=== PATIENT | male | born 1950 | race Two or more races ===

== ENCOUNTER 2019-09-02 17:19 | Inpatient (IN) | payer MEDICARE ==
[2019-09-02] MEDS ORDERED: SODIUM CHLORIDE 0.9% 500 ML 500 ML IV ONE ×2 (17:37→18:51)
[2019-09-02] MEDS ORDERED: SODIUM CHLORIDE 0.9% 1,000 ML IV ONE (17:37)
[2019-09-02] MEDS ORDERED: SODIUM CHLORIDE 0.9% 1,000 ML IV SCH (17:45)
[2019-09-02 17:48] LABS: Glucose,Whole Blood 382 mg/dL (75-99)
[2019-09-02 17:50] LABS: Basophils # (A) 0.1 k/uL (0-0.2); Basophils % (A) 0 %; Eosinophils # (A) 0.1 k/uL (0-0.7); Eosinophils % (A) 0 %; HCT 51.9 % (39.0-53.0); HGB 17.8 gm/dL (13.0-17.5); Lymphocytes # (A) 2.3 k/uL (1.0-4.8); Lymphocytes % (A) 14 %; MCH 31.3 pg (25.0-35.0); MCHC 34.3 g/dL (31.0-37.0); MCV 91.3 fL (80.0-100.0); Mean Platelet Volume 7.1; Monocytes # (A) 0.7 k/uL (0-1.0); Monocytes % (A) 4 %; Neutrophils # (A) 13.9 k/uL (1.3-7.7); Neutrophils % (A) 80 %; Platelet Count 290 k/uL (150-450); RBC 5.68 m/uL (4.30-5.90); RDW 13.3 % (11.5-15.5); WBC 17.3 k/uL (3.8-10.6)
[2019-09-02 18:01] LABS: ALT 22 U/L (4-49); AST 21 U/L (17-59); African American GFR (CKD) >90 (>60 ml/min/1.73 sqM); Albumin 4.8 g/dL (3.5-5.0); Alkaline Phosphatase 160 U/L (38-126); Anion Gap 27 mmol/L; Blood Urea Nitrogen 16 mg/dL (9-20); Chloride 97 mmol/L (98-107); Glucose 399 mg/dL (74-99); Non-African American GFR(CKD) >90 (>60 ml/min/1.73 sqM); Potassium 3.8 mmol/L (3.5-5.1); Sodium 133 mmol/L (137-145); Total Bilirubin 0.5 mg/dL (0.2-1.3); Total Protein 7.8 g/dL (6.3-8.2)
[2019-09-02 18:05] LABS: Appearance,Urine Clear (Clear); Bacteria,Urine Rare /hpf; Bilirubin,Urine Negative (Negative); Blood,Urine Negative (Negative); Color,Urine Light Yellow; Glucose,Urine (UA) 4+ (Negative); Hyaline Casts,Urine 29 /lpf (0-2); Leukocyte Esterase,Urine Negative (Negative); Mucus,Urine Rare /hpf; Nitrite,Urine Negative (Negative); Protein,Urine 1+ (Negative); Specific Gravity,Urine 1.025 (1.001-1.035); Urobilinogen,Urine <2.0 mg/dL (<2.0); WBC,Urine 1 /hpf (0-5)
[2019-09-02] MEDS ORDERED: hydrALAZINE HCL 20 MG/ML 1 ML VIAL IVP STA (18:09)
[2019-09-02 18:11] LABS: Ketones,Urine 4+ (Negative)
[2019-09-02 18:15] LABS: Carbon Dioxide 9 mmol/L (22-30)
[2019-09-02] MEDS ORDERED: INSULIN REGULAR BOLUS (FROM DRIP BAG) IV ONE (19:14)
[2019-09-02 19:35] LABS: Allen Test Performed? Yes
--- NOTE | 2019-09-02 19:36 | CT ---
EXAMINATION TYPE: CT abdomen pelvis w con DATE OF EXAM: 09/02/2019 COMPARISON: None HISTORY: Epigastric pain with nausea and vomiting. CT DLP: 1250.7 mGycm Automated exposure control for dose reduction was used. CONTRAST: Performed with IV Contrast, patient injected with 100 mL of Isovue 300. Lung bases are clear. There is no pleural effusion. There is low attenuation in the liver suggestive of some fatty infiltration. There is bilobed 3.5 cm cyst in the left lobe of the liver. There is 1.5 cm cyst anterior right lobe of the liver. There are some densely calcified gallstones in the dependen t gallbladder. Stomach appears normal. There is no pancreatic mass. Spleen appears normal. There is no adrenal mass. Kidneys show satisfactory contrast opacification. There is no hydronephrosi s. There is 1 cm cortical cyst lateral right kidney. Ureters are not dilated. There is no retroperito traci adenopathy. Bladder distends smoothly. There is some prostate calcification. There is no inguina l hernia. There is no free fluid in the pelvis. There is implanted device over the anterior left lowe r quadrant. Appendix is not seen. There is no sign of thickened appendix. There is no mesenteric edema. There is no ascites or free air. There is no sign of a bowel obstruction. There is mild atheromatous change of the abdominal aorta. Lumbar vertebra have normal alignment. There is degenerative disc space narrowing at L5-S1 with vacuu m disc. Abdominal aorta is atheromatous. Posterior elements are intact. Bony pelvis is intact. IMPRESSION: There is some fatty infiltration of the liver. Cholelithiasis. No dilated ducts. No acute abnormality of the abdomen pelvis.
[2019-09-02 19:37] LABS: ABG Base Excess -16.5 mmol/L; ABG Oxygen Saturation 98.2 % (94-97); ABG PCO2 22 mmHg (35-45); ABG PH 7.25 (7.35-7.45); ABG PO2 119 mmHg (83-108)
[2019-09-02 19:38] LABS: ABG HCO3 9 mmol/L (21-25)
[2019-09-02] MEDS ORDERED: LORazepam 2 MG/ML INJ IV STA (19:53)
--- NOTE | 2019-09-02 19:55 | ED ---
Nausea/Vomiting/Diarrhea HPI - General Source: EMS Mode of arrival: EMS Limitations: no limitations <Jennifer Michael - Last Filed: 09/02/19 20:22> <Kathrin Heller - Last Filed: 09/09/19 04:40> - General Chief complaint: Nausea/Vomiting/Diarrhea Stated complaint: Vomiting Time Seen by Provider: 09/02/19 17:34 - History of Present Illness Initial comments: 68-year-old male presents today for chief complaint of nausea vomiting unable to eat or drink are 4 days. Patient states that he has had nausea vomiting and been unable to drink the past 4 days. Patient states he has had this nonspecific epigastric abdominal pain denies any radiation denies any severe pain. Patient denies any chest pain shortness of breath or leg swelling. Patient denies any headache dizziness, or new back pain. Patient states he has beem unable to take his BP medications. Denies history of heavy drinking, PUD, melena, hematochezia, NSAID abuse. Patient denies additional complaints. Upon arrival patient appears well there is no signs of acute distress. (Jennifer Michael) - Related Data Home Medications Medication Instructions Recorded Confirmed Atorvastatin Calcium [Lipitor] 20 mg PO DAILY 09/02/19 09/02/19 Gabapentin [Neurontin] 100 mg PO TID 09/02/19 09/02/19 Hydromorphone (Pain Pump) 0.01 mg SQ-PUMP CONTINUOUS 09/02/19 09/02/19 amLODIPine [Norvasc] 2.5 mg PO DAILY 09/02/19 09/02/19 Previous Rx's Medication Instructions Recorded Aspirin 81 mg PO DAILY #30 chewable 09/05/19 Insulin NPH/Reg Insulin 70/30 18 unit SQ BID #4 vial 09/05/19 [humuLIN 70/30 VIAL] Allergies Allergy/AdvReac Type Severity Reaction Status Date / Time morphine Allergy Rash/Hives Verified 09/02/19 19:21 Review of Systems ROS Other: All systems not noted in ROS Statement are negative. <Jennifer Michael - Last Filed: 09/02/19 20:22> ROS Other: All systems not noted in ROS Statement are negative. <Kathrin Heller - Last Filed: 09/09/19 04:40> ROS Statement: Those systems with pertinent positive or pertinent negative responses have been documented in the HPI. Past Medical History Past Medical History: Hypertension History of Any Multi-Drug Resistant Organisms: None Reported Additional Past Surgical History / Comment(s): Pain pump Past Psychological History: No Psychological Hx Reported Smoking Status: Current every day smoker Past Alcohol Use History: None Reported Past Drug Use History: None Reported <Jennifer Michael - Last Filed: 09/02/19 20:22> General Exam Limitations: no limitations <Jennifer Michael - Last Filed: 09/02/19 20:22> - General Exam Comments Initial Comments: General: The patient is awake and alert, in no distress Eye: Pupils are equal, round and reactive to light, extra-ocular movements are intact. No nystagmus. There is normal conjunctiva bilaterally. No signs of icterus. Ears, nose, mouth and throat: There are moist mucous membranes and no oral lesions. Neck: The neck is supple, there is no tenderness or JVD. Cardiovascular: There is a regular rate and rhythm. No murmur, rub or gallop is appreciated. Respiratory: Lungs are clear to auscultation, respirations are non-labored, breath sounds are equal. No wheezes, stridor, rales, or rhonchi. Gastrointestinal: Soft, non-distended, mild tenderness to the epigastric region of the abdomen without masses or organomegaly noted. There is no rebound or guarding present. (-) [place] sign. Musculoskeletal: Normal ROM, no tenderness. Strength 5/5. Sensation intact. Pulses equal bilaterally 2+. Neurological: A&O x 3. CN II-XII intact grossly, There are no obvious motor or sensory deficits. Coordination appears grossly intact. Speech is normal. Skin: Skin is warm and dry and no rashes or lesions are noted. Psychiatric: Cooperative, appropriate mood & affect, normal judgment. (Jennifer Michael) Course Vital Signs 09/02/19 09/02/19 09/02/19 17:23 17:30 18:00 Temperature 98.7 F Pulse Rate 102 H 104 H 106 H Pulse Rate [ Bilateral] Respiratory 17 17 17 Rate Blood Pressure 196/130 196/130 201/115 Blood Pressure [Left Arm] O2 Sat by Pulse 96 96 95 Oximetry 09/02/19 09/02/19 09/02/19 18:30 18:45 19:20 Temperature Pulse Rate 110 H 102 H 104 H Pulse Rate [ Bilateral] Respiratory 17 18 18 Rate Blood Pressure 168/104 171/83 182/89 Blood Pressure [Left Arm] O2 Sat by Pulse 96 98 96 Oximetry 09/02/19 09/02/19 09/02/19 20:04 20:14 20:45 Temperature 97.8 F 97.9 F Pulse Rate 111 H 114 H Pulse Rate [ 97 Bilateral] Respiratory 16 20 16 Rate Blood Pressure 171/90 137/86 Blood Pressure 166/73 [Left Arm] O2 Sat by Pulse 98 96 98 Oximetry Medical Decision Making - Lab Data Result diagrams: 09/02/19 17:30 09/02/19 17:30 <Jennifer Michael - Last Filed: 09/02/19 20:22> - Lab Data Result diagrams: 09/05/19 08:00 09/05/19 08:00 <Kathrin Heller - Last Filed: 09/09/19 04:40> - Medical Decision Making 68yo male presenting today for cc of nausea, vomiting. Glucose elevated POC. Concern DKA. No history. EKG obtained QT prolongation-antiemetic held due to fear of prolonging QT further. Pt given ativan. Patient hydrated. Ketones, Acetone +. Low bicarb on ABG however greater than 7. Patient initiated on Insulin drip with DKA protocol and 200ml/hr fluids. Patient has no history CHF, no SOB. No extremity swelling. Patient will be admitted on telemetry. Repeat studies ordered. Patient is agreeable to admission. Dr. Heller who reviewed laboratory studies/EKG is agreeable to care plan. CT obtained secondary to epigastric pain--no acute abnormalities. (Jennifer Michael) I was available for consultation in the emergency department. The history and physical exam were done by the midlevel provider. I was consulted for this patients care. I reviewed the case with the midlevel provider and based on their presentation of the patient, I agree with the assessment, medical decision making and plan of care as documented. Chart was dictated using [employer] dictation software. Attempts were made to correct any dictation errors however some typographical errors may persist. (Kathrin Heller) - Lab Data Lab Results 09/02/19 09/02/19 09/02/19 Range/Units 17:30 17:30 17:30 WBC 17.3 H (3.8-10.6) k/uL RBC 5.68 (4.30-5.90) m/uL Hgb 17.8 H (13.0-17.5) gm/dL Hct 51.9 (39.0-53.0) % MCV 91.3 (80.0-100.0) fL MCH 31.3 (25.0-35.0) pg MCHC 34.3 (31.0-37.0) g/dL RDW 13.3 (11.5-15.5) % Plt Count 290 (150-450) k/uL Neutrophils % 80 % Lymphocytes % 14 % Monocytes % 4 % Eosinophils % 0 % Basophils % 0 % Neutrophils # 13.9 H (1.3-7.7) k/uL Lymphocytes # 2.3 (1.0-4.8) k/uL Monocytes # 0.7 (0-1.0) k/uL Eosinophils # 0.1 (0-0.7) k/uL Basophils # 0.1 (0-0.2) k/uL Sample Site ABG pH (7.35-7.45) ABG pCO2 (35-45) mmHg ABG pO2 (83-108) mmHg ABG HCO3 (21-25) mmol/L ABG Total CO2 ABG O2 Saturation (94-97) % ABG Base Excess mmol/L Giuliano Test FiO2 % Sodium 133 L (137-145) mmol/L Potassium 3.8 (3.5-5.1) mmol/L Chloride 97 L (98-107) mmol/L Carbon Dioxide 9 L* (22-30) mmol/L Anion Gap 27 mmol/L BUN 16 (9-20) mg/dL Creatinine 0.81 (0.66-1.25) mg/dL Est GFR (CKD-EPI)AfAm >90 (>60 ml/min/1.73 sqM) Est GFR (CKD-EPI)NonAf >90 (>60 ml/min/1.73 sqM) Glucose 399 H (74-99) mg/dL POC Glucose (mg/dL) (75-99) mg/dL POC Glu Watch Repair Technician ID Lactic Ac Sepsis Rflx Plasma Lactic Acid Thomas 2.4 H* (0.7-2.0) mmol/L Calcium 9.0 (8.4-10.2) mg/dL Total Bilirubin 0.5 (0.2-1.3) mg/dL AST 21 (17-59) U/L ALT 22 (4-49) U/L Alkaline Phosphatase 160 H (38-126) U/L Troponin I (0.000-0.034) ng/mL Total Protein 7.8 (6.3-8.2) g/dL Albumin 4.8 (3.5-5.0) g/dL Lipase 213 (23-300) U/L Urine Color Urine Appearance (Clear) Urine pH (5.0-8.0) Ur Specific [place] (1.001-1.035) Urine Protein (Negative) Urine Glucose (UA) (Negative) Urine Ketones (Negative) Urine Blood (Negative) Urine Nitrite (Negative) Urine Bilirubin (Negative) Urine Urobilinogen (<2.0) mg/dL Ur Leukocyte Esterase (Negative) Urine WBC (0-5) /hpf Urine Bacteria (None) /hpf Hyaline Casts (0-2) /lpf Urine Mucus (None) /hpf Acetone, Qual (Negative) 09/02/19 09/02/19 09/02/19 Range/Units 17:30 17:30 17:30 WBC (3.8-10.6) k/uL RBC (4.30-5.90) m/uL Hgb (13.0-17.5) gm/dL Hct (39.0-53.0) % MCV (80.0-100.0) fL MCH (25.0-35.0) pg MCHC (31.0-37.0) g/dL RDW (11.5-15.5) % Plt Count (150-450) k/uL Neutrophils % % Lymphocytes % % Monocytes % % Eosinophils % % Basophils % % Neutrophils # (1.3-7.7) k/uL Lymphocytes # (1.0-4.8) k/uL Monocytes # (0-1.0) k/uL Eosinophils # (0-0.7) k/uL Basophils # (0-0.2) k/uL Sample Site ABG pH (7.35-7.45) ABG pCO2 (35-45) mmHg ABG pO2 (83-108) mmHg ABG HCO3 (21-25) mmol/L ABG Total CO2 ABG O2 Saturation (94-97) % ABG Base Excess mmol/L Giuliano Test FiO2 % Sodium (137-145) mmol/L Potassium (3.5-5.1) mmol/L Chloride (98-107) mmol/L Carbon Dioxide (22-30) mmol/L Anion Gap mmol/L BUN (9-20) mg/dL Creatinine (0.66-1.25) mg/dL Est GFR (CKD-EPI)AfAm (>60 ml/min/1.73 sqM) Est GFR (CKD-EPI)NonAf (>60 ml/min/1.73 sqM) Glucose (74-99) mg/dL POC Glucose (mg/dL) (75-99) mg/dL POC Glu Watch Repair Technician ID Lactic Ac Sepsis Rflx Plasma Lactic Acid Thomas (0.7-2.0) mmol/L Calcium (8.4-10.2) mg/dL Total Bilirubin (0.2-1.3) mg/dL AST (17-59) U/L ALT (4-49) U/L Alkaline Phosphatase (38-126) U/L Troponin I <0.012 (0.000-0.034) ng/mL Total Protein (6.3-8.2) g/dL Albumin (3.5-5.0) g/dL Lipase (23-300) U/L Urine Color Light Yellow Urine Appearance Clear (Clear) Urine pH 5.0 (5.0-8.0) Ur Specific [place] 1.025 (1.001-1.035) Urine Protein 1+ H (Negative) Urine Glucose (UA) 4+ H (Negative) Urine Ketones 4+ H (Negative) Urine Blood Negative (Negative) Urine Nitrite Negative (Negative) Urine Bilirubin Negative (Negative) Urine Urobilinogen <2.0 (<2.0) mg/dL Ur Leukocyte Esterase Negative (Negative) Urine WBC 1 (0-5) /hpf Urine Bacteria Rare H (None) /hpf Hyaline Casts 29 H (0-2) /lpf Urine Mucus Rare H (None) /hpf Acetone, Qual Positive (Negative) 09/02/19 09/02/19 09/02/19 Range/Units 17:46 18:16 19:27 WBC (3.8-10.6) k/uL RBC (4.30-5.90) m/uL Hgb (13.0-17.5) gm/dL Hct (39.0-53.0) % MCV (80.0-100.0) fL MCH (25.0-35.0) pg MCHC (31.0-37.0) g/dL RDW (11.5-15.5) % Plt Count (150-450) k/uL Neutrophils % % Lymphocytes % % Monocytes % % Eosinophils % % Basophils % % Neutrophils # (1.3-7.7) k/uL Lymphocytes # (1.0-4.8) k/uL Monocytes # (0-1.0) k/uL Eosinophils # (0-0.7) k/uL Basophils # (0-0.2) k/uL Sample Site lbrach ABG pH 7.25 L (7.35-7.45) ABG pCO2 22 L (35-45) mmHg ABG pO2 119 H (83-108) mmHg ABG HCO3 9 L* (21-25) mmol/L ABG Total CO2 Not Reportable ABG O2 Saturation 98.2 H (94-97) % ABG Base Excess -16.5 mmol/L Giuliano Test Yes FiO2 21 % Sodium (137-145) mmol/L Potassium (3.5-5.1) mmol/L Chloride (98-107) mmol/L Carbon Dioxide (22-30) mmol/L Anion Gap mmol/L BUN (9-20) mg/dL Creatinine (0.66-1.25) mg/dL Est GFR (CKD-EPI)AfAm (>60 ml/min/1.73 sqM) Est GFR (CKD-EPI)NonAf (>60 ml/min/1.73 sqM) Glucose (74-99) mg/dL POC Glucose (mg/dL) 382 H (75-99) mg/dL POC Glu Watch Repair Technician ID Dariela Hoffmann Lactic Ac Sepsis Rflx Y Plasma Lactic Acid Thomas (0.7-2.0) mmol/L Calcium (8.4-10.2) mg/dL Total Bilirubin (0.2-1.3) mg/dL AST (17-59) U/L ALT (4-49) U/L Alkaline Phosphatase (38-126) U/L Troponin I (0.000-0.034) ng/mL Total Protein (6.3-8.2) g/dL Albumin (3.5-5.0) g/dL Lipase (23-300) U/L Urine Color Urine Appearance (Clear) Urine pH (5.0-8.0) Ur Specific [place] (1.001-1.035) Urine Protein (Negative) Urine Glucose (UA) (Negative) Urine Ketones (Negative) Urine Blood (Negative) Urine Nitrite (Negative) Urine Bilirubin (Negative) Urine Urobilinogen (<2.0) mg/dL Ur Leukocyte Esterase (Negative) Urine WBC (0-5) /hpf Urine Bacteria (None) /hpf Hyaline Casts (0-2) /lpf Urine Mucus (None) /hpf Acetone, Qual (Negative) - EKG Data EKG Comments: Ventricular rate 107 bpm, CT interval 156 ms, QRS ration 92 ms, QT/QTC 42/536 mg seconds. This is sinus tachycardia there is noted to be a prolonged QT. (Jennifer Michael) Critical Care Time Critical Care Time: Yes <Kathrin Heller - Last Filed: 09/09/19 04:40> Critical Care Time: 32 minutes (Kathrin Heller) Disposition Is patient prescribed a controlled substance at d/c from ED?: No Time of Disposition: 19:54 Decision to Admit Reason: Admit from EC Decision Date: 09/02/19 Decision Time: 19:55 <Jennifer Michael - Last Filed: 09/02/19 20:22> <Kathrin Heller - Last Filed: 09/09/19 04:40> Clinical Impression: DKA (diabetic ketoacidoses), Diabetes mellitus, new onset, Dehydration, Low bicarbonate, Nausea & vomiting Disposition: ADMITTED IP TO THIS [facility] Condition: Stable
--- NOTE | 2019-09-02 19:55 | XR ---
EXAMINATION TYPE: XR chest 2V DATE OF EXAM: 09/02/2019 COMPARISON: NONE HISTORY: Nausea and vomiting TECHNIQUE: 2 views FINDINGS: Heart and mediastinum are normal. Lungs are clear. Diaphragm is normal. Bony thorax appears normal. IMPRESSION: Normal chest.
[2019-09-02 19:56] LABS: Glucose,Whole Blood 311 mg/dL (75-99)
[2019-09-02] MEDS: INSULIN REGULAR 100 UNIT in SODIUM CHLORIDE 0.9% 100 ML IV SCH (19:58)
[2019-09-02 20:20] LABS: Glucose,Whole Blood 297 mg/dL (75-99)
[2019-09-02 20:53] LABS: Glucose,Whole Blood 298 mg/dL (75-99)
[2019-09-02 21:16] LABS: African American GFR (CKD) >90 (>60 ml/min/1.73 sqM); Anion Gap 22 mmol/L; Blood Urea Nitrogen 14 mg/dL (9-20); Chloride 106 mmol/L (98-107); Glucose 280 mg/dL (74-99); Non-African American GFR(CKD) >90 (>60 ml/min/1.73 sqM); Phosphorus 3.1 mg/dL (2.5-4.5); Potassium 3.6 mmol/L (3.5-5.1); Sodium 136 mmol/L (137-145)
[2019-09-02 21:19] LABS: Carbon Dioxide 8 mmol/L (22-30)
[2019-09-02 21:33] LABS: Glucose,Whole Blood 266 mg/dL (75-99)
[2019-09-02] MEDS: D5-0.45% NACL WITH KCL 20MEQ/L 1,000 ML IV SCH (21:44)
[2019-09-02 23:12] LABS: Glucose,Whole Blood 171 mg/dL (75-99)
[2019-09-03 00:05] LABS: Glucose,Whole Blood 144 mg/dL (75-99)
[2019-09-03 01:00] LABS: Glucose,Whole Blood 158 mg/dL (75-99)
[2019-09-03] MEDS ORDERED: Potassium Replacement Protocol 1 EACH MISC MISCELLANE PRN (01:24)
[2019-09-03] MEDS ORDERED: Magnesium Replacement Protocol 1 EACH MISC MISCELLANE PRN (01:24)
--- NOTE | 2019-09-03 01:40 | P.HPIM ---
History of Present Illness H&P Date: 09/02/19 Chief Complaint: nausea and vomiting 68 year old male with hypertension controlled with meds he comes in with 1 week histoyr of of worsening nausea and vomiting , he has not been able to eat or drink or even take his meds over the past 4 days. his symptoms started as a milder form about 3 weeks ago . he denies any ferver chills, or sick contact,denies any chest pain or trouble breathing, denies any coughing. or changes in his urine,. he reports abd discomfort but not severe. diffuse abd vague pain 4/10 in severity . he denies any gi bleeding, reports constipation in the ED he was found to be in DKA< he denies any history of diabetes, but does recall that once he was told that he has very high blood sugar during his knee surgery CT of the abd showed cholelithiasis Review of Systems Pertinent positives as noted in HPI. All other systems were reviewed and are negative Past Medical History Past Medical History: Hypertension History of Any Multi-Drug Resistant Organisms: None Reported Additional Past Surgical History / Comment(s): Pain pump Past Anesthesia/Blood Transfusion Reactions: No Reported Reaction Past Psychological History: No Psychological Hx Reported Smoking Status: Current every day smoker Past Alcohol Use History: None Reported Past Drug Use History: None Reported - Past Family History family Family Medical History: No Reported History Medications and Allergies Home Medications Medication Instructions Recorded Confirmed Type Atorvastatin Calcium [Lipitor] 20 mg PO DAILY 09/02/19 09/02/19 History Gabapentin [Neurontin] 100 mg PO TID 09/02/19 09/02/19 History Hydromorphone (Pain Pump) 0.01 mg SQ-PUMP CONTINUOUS 09/02/19 09/02/19 History amLODIPine [Norvasc] 2.5 mg PO DAILY 09/02/19 09/02/19 History Allergies Allergy/AdvReac Type Severity Reaction Status Date / Time morphine Allergy Rash/Hives Verified 09/02/19 19:21 Physical Exam Vitals: Vital Signs Temp Pulse Pulse Resp BP BP Pulse Ox 09/03/19 00:00 97 18 168/75 97 09/02/19 20:45 97.9 F 114 H 16 137/86 98 09/02/19 20:14 97.8 F 97 20 166/73 96 09/02/19 20:04 111 H 16 171/90 98 09/02/19 19:20 104 H 18 182/89 96 09/02/19 18:45 102 H 18 171/83 98 09/02/19 18:30 110 H 17 168/104 96 09/02/19 18:00 106 H 17 201/115 95 09/02/19 17:30 104 H 17 196/130 96 09/02/19 17:23 98.7 F 102 H 17 196/130 96 Intake and Output 09/02/19 09/02/19 09/03/19 14:59 22:59 06:59 Intake Total 440 39.793 Output Total 1100 Balance -660 39.793 Intake: Intake, IV Titration 39.793 Amount Insulin Regular 100 unit 39.793 In Sodium Chloride 0.9% 100 ml @ 0.1 UNITS/KG/HR 9.437 mls/hr IV .[id number] [facility] Rx#:[id number] Oral 440 Output: Urine 1100 Other: Weight 93.44 kg Constitutional: No acute distress, conversant, pleasant Eyes: Anicteric sclerae, moist conjunctiva, no lid-lag Pupils equal round reactive to light ENMT: NC/AT Oropharynx clear, no erythema, exudates Neck: Supple, FROM, no masses, or JVD No carotid bruits No thyromegaly Lungs: Clear to auscultation Clear to percussion Normal respiratory effort, no accessory muscle use Cardiovascular: Heart regular in rate and rhythm, No murmurs, gallops, or rubs No peripheral edema Abdominal: Soft Nontender, no guarding, rebound or rigidity Abdomen moving with respiration Normoactive bowel sounds No hepatomegaly, No splenomegaly No palpable mass No abdominal wall hernia noted Skin: Normal temperature, tone, texture, turgor No induration No subcutaneous nodules No rash, lesions No ulcers Extremities: No digital cyanosis No clubbing Pedal pulses intact and symmetrical Radial pulses intact and symmetrical No calf tenderness Psychiatric: Alert and oriented to person, place and time Appropriate affect fair judgement Neuro Muscles Strength 5/5 in all 4 extremities Sensation to light touch grossly present throughout Cranial nerves II-XII grossly intact No focal sensory deficits Lymphatics: no palpable cervical or supraclavicular , or inguinal lymph nodes Results CBC & Chem 7: 09/02/19 17:30 09/02/19 20:40 Labs: Abnormal Lab Results - Last 24 Hours (Table) 09/02/19 09/02/19 09/02/19 Range/Units 17:30 17:30 17:30 WBC 17.3 H (3.8-10.6) k/uL Hgb 17.8 H (13.0-17.5) gm/dL Neutrophils # 13.9 H (1.3-7.7) k/uL ABG pH (7.35-7.45) ABG pCO2 (35-45) mmHg ABG pO2 (83-108) mmHg ABG HCO3 (21-25) mmol/L ABG O2 Saturation (94-97) % Sodium 133 L (137-145) mmol/L Chloride 97 L (98-107) mmol/L Carbon Dioxide 9 L* (22-30) mmol/L Glucose 399 H (74-99) mg/dL POC Glucose (mg/dL) (75-99) mg/dL Plasma Lactic Acid Thomas 2.4 H* (0.7-2.0) mmol/L Alkaline Phosphatase 160 H (38-126) U/L Urine Protein (Negative) Urine Glucose (UA) (Negative) Urine Ketones (Negative) Urine Bacteria (None) /hpf Hyaline Casts (0-2) /lpf Urine Mucus (None) /hpf 09/02/19 09/02/19 09/02/19 Range/Units 17:30 17:46 19:27 WBC (3.8-10.6) k/uL Hgb (13.0-17.5) gm/dL Neutrophils # (1.3-7.7) k/uL ABG pH 7.25 L (7.35-7.45) ABG pCO2 22 L (35-45) mmHg ABG pO2 119 H (83-108) mmHg ABG HCO3 9 L* (21-25) mmol/L ABG O2 Saturation 98.2 H (94-97) % Sodium (137-145) mmol/L Chloride (98-107) mmol/L Carbon Dioxide (22-30) mmol/L Glucose (74-99) mg/dL POC Glucose (mg/dL) 382 H (75-99) mg/dL Plasma Lactic Acid Thomas (0.7-2.0) mmol/L Alkaline Phosphatase (38-126) U/L Urine Protein 1+ H (Negative) Urine Glucose (UA) 4+ H (Negative) Urine Ketones 4+ H (Negative) Urine Bacteria Rare H (None) /hpf Hyaline Casts 29 H (0-2) /lpf Urine Mucus Rare H (None) /hpf 09/02/19 09/02/19 09/02/19 Range/Units 19:49 20:18 20:40 WBC (3.8-10.6) k/uL Hgb (13.0-17.5) gm/dL Neutrophils # (1.3-7.7) k/uL ABG pH (7.35-7.45) ABG pCO2 (35-45) mmHg ABG pO2 (83-108) mmHg ABG HCO3 (21-25) mmol/L ABG O2 Saturation (94-97) % Sodium 136 L (137-145) mmol/L Chloride (98-107) mmol/L Carbon Dioxide 8 L* (22-30) mmol/L Glucose 280 H (74-99) mg/dL POC Glucose (mg/dL) 311 H 297 H (75-99) mg/dL Plasma Lactic Acid Thomas (0.7-2.0) mmol/L Alkaline Phosphatase (38-126) U/L Urine Protein (Negative) Urine Glucose (UA) (Negative) Urine Ketones (Negative) Urine Bacteria (None) /hpf Hyaline Casts (0-2) /lpf Urine Mucus (None) /hpf 09/02/19 09/02/19 09/02/19 Range/Units 20:41 21:31 21:52 WBC (3.8-10.6) k/uL Hgb (13.0-17.5) gm/dL Neutrophils # (1.3-7.7) k/uL ABG pH (7.35-7.45) ABG pCO2 (35-45) mmHg ABG pO2 (83-108) mmHg ABG HCO3 (21-25) mmol/L ABG O2 Saturation (94-97) % Sodium (137-145) mmol/L Chloride (98-107) mmol/L Carbon Dioxide (22-30) mmol/L Glucose (74-99) mg/dL POC Glucose (mg/dL) 298 H 266 H (75-99) mg/dL Plasma Lactic Acid Thomas 2.1 H* (0.7-2.0) mmol/L Alkaline Phosphatase (38-126) U/L Urine Protein (Negative) Urine Glucose (UA) (Negative) Urine Ketones (Negative) Urine Bacteria (None) /hpf Hyaline Casts (0-2) /lpf Urine Mucus (None) /hpf 09/02/19 09/03/19 09/03/19 Range/Units 22:59 00:04 00:59 WBC (3.8-10.6) k/uL Hgb (13.0-17.5) gm/dL Neutrophils # (1.3-7.7) k/uL ABG pH (7.35-7.45) ABG pCO2 (35-45) mmHg ABG pO2 (83-108) mmHg ABG HCO3 (21-25) mmol/L ABG O2 Saturation (94-97) % Sodium (137-145) mmol/L Chloride (98-107) mmol/L Carbon Dioxide (22-30) mmol/L Glucose (74-99) mg/dL POC Glucose (mg/dL) 171 H 144 H 158 H (75-99) mg/dL Plasma Lactic Acid Thomas (0.7-2.0) mmol/L Alkaline Phosphatase (38-126) U/L Urine Protein (Negative) Urine Glucose (UA) (Negative) Urine Ketones (Negative) Urine Bacteria (None) /hpf Hyaline Casts (0-2) /lpf Urine Mucus (None) /hpf Thrombosis Risk Factor Assmnt - Choose All That Apply Any of the Below Risk Factors Present?: No Other Risk Factors: Yes Each Risk Factor Represents 2 Points: Age 61-74 years Thrombosis Risk Factor Assessment Total Risk Factor Score: 2 Thrombosis Risk Factor Assessment Level: Low Risk Assessment and Plan Assessment: 68 year old male with hypertension controlled with meds found to have DKA anticipated length of stay >2 midnights DKA lactic acidosis aggressive IVF hydraiton with normal saline transition to d5 0.45 NS per protocol insulin drip, transition to sc insulin when gap closed and acidosis corrected monitor and replace electrolytes NPO diabetic education check A1C follow up cultures incidental finding of gall stone OP follow up hypertension controlled with meds continue amlodipine polycythemia most likely secondary to smoking contineu to monitor counseled to quit smoking PT/OT eval patient is using his fathers cane to ambulate CODE STATUS:full code DVT prophylaxis: heparin sc tid Discussed with: Patient, ER, RN Anticipated length of stay > than [address]: home A total of 75 minutes was spent on the care of this complex patient more than 50% of the time was spent in counseling and care coordination.
[2019-09-03 02:03] LABS: Glucose,Whole Blood 158 mg/dL (75-99)
[2019-09-03 02:28] LABS: African American GFR (CKD) >90 (>60 ml/min/1.73 sqM); Anion Gap 13 mmol/L; Blood Urea Nitrogen 13 mg/dL (9-20); Carbon Dioxide 13 mmol/L (22-30); Chloride 106 mmol/L (98-107); Glucose 156 mg/dL (74-99); Non-African American GFR(CKD) >90 (>60 ml/min/1.73 sqM); Potassium 3.5 mmol/L (3.5-5.1); Sodium 132 mmol/L (137-145)
[2019-09-03 03:04] LABS: Glucose,Whole Blood 144 mg/dL (75-99)
[2019-09-03 04:02] LABS: Glucose,Whole Blood 174 mg/dL (75-99)
[2019-09-03 05:04] LABS: Glucose,Whole Blood 178 mg/dL (75-99)
[2019-09-03 05:16] LABS: African American GFR (CKD) >90 (>60 ml/min/1.73 sqM); Anion Gap 12 mmol/L; Blood Urea Nitrogen 13 mg/dL (9-20); Carbon Dioxide 13 mmol/L (22-30); Chloride 107 mmol/L (98-107); Glucose 166 mg/dL (74-99); Non-African American GFR(CKD) >90 (>60 ml/min/1.73 sqM); Phosphorus 2.3 mg/dL (2.5-4.5); Potassium 3.4 mmol/L (3.5-5.1); Sodium 132 mmol/L (137-145)
[2019-09-03] MEDS: D5-0.45% NACL WITH KCL 20MEQ/L 1,000 ML IV SCH (05:58)
[2019-09-03] MEDS: INSULIN REGULAR 100 UNIT in SODIUM CHLORIDE 0.9% 100 ML IV SCH ×2 (05:59→20:47)
[2019-09-03 06:07] LABS: Glucose,Whole Blood 214 mg/dL (75-99)
[2019-09-03 06:59] LABS: Glucose,Whole Blood 207 mg/dL (75-99)
[2019-09-03 08:00] LABS: African American GFR (CKD) >90 (>60 ml/min/1.73 sqM); Anion Gap 9 mmol/L; Blood Urea Nitrogen 12 mg/dL (9-20); Carbon Dioxide 15 mmol/L (22-30); Chloride 107 mmol/L (98-107); Glucose 212 mg/dL (74-99); Non-African American GFR(CKD) >90 (>60 ml/min/1.73 sqM); Phosphorus 2.2 mg/dL (2.5-4.5); Potassium 3.3 mmol/L (3.5-5.1); Sodium 131 mmol/L (137-145)
[2019-09-03] MEDS: GABAPENTIN 100 MG CAP PO SCH ×4 (08:54→21:28)
[2019-09-03] MEDS: amLODIPine 2.5 MG TAB PO SCH ×2 (08:54→18:01)
[2019-09-03] MEDS: ATORVASTATIN 20 MG TAB PO SCH ×2 (08:54→18:01)
[2019-09-03] MEDS: NICOTINE 21MG/24HR PATCH TRANSDERM SCH (08:54)
[2019-09-03 08:55] LABS: Glucose,Whole Blood 224 mg/dL (75-99)
[2019-09-03 09:52] LABS: Glucose,Whole Blood 208 mg/dL (75-99)
[2019-09-03] MEDS ORDERED: D5-0.45% NACL WITH KCL 20MEQ/L 1,000 ML IV SCH (10:00)
[2019-09-03 10:54] LABS: Glucose,Whole Blood 208 mg/dL (75-99)
[2019-09-03 11:51] LABS: Glucose,Whole Blood 220 mg/dL (75-99)
[2019-09-03 12:19] LABS: African American GFR (CKD) >90 (>60 ml/min/1.73 sqM); Anion Gap 11 mmol/L; Blood Urea Nitrogen 11 mg/dL (9-20); Calcium 8.5 mg/dL (8.4-10.2); Carbon Dioxide 17 mmol/L (22-30); Chloride 106 mmol/L (98-107); Glucose 223 mg/dL (74-99); Non-African American GFR(CKD) >90 (>60 ml/min/1.73 sqM); Potassium 3.4 mmol/L (3.5-5.1); Sodium 134 mmol/L (137-145)
[2019-09-03 12:54] LABS: Glucose,Whole Blood 233 mg/dL (75-99)
[2019-09-03] MEDS: METOCLOPRAMIDE 5 MG/ML 2 ML VIAL IVP PRN (12:56)
[2019-09-03 13:55] LABS: Glucose,Whole Blood 317 mg/dL (75-99)
[2019-09-03 14:57] LABS: Glucose,Whole Blood 366 mg/dL (75-99)
[2019-09-03 16:18] LABS: Glucose,Whole Blood 310 mg/dL (75-99)
[2019-09-03 17:11] LABS: Glucose,Whole Blood 272 mg/dL (75-99)
--- NOTE | 2019-09-03 17:39 | P.PN ---
Subjective Progress Note Date: 09/03/19 Principal diagnosis: DKA Patient was seen and examined. No acute events overnight. Patient reports improvement in his symptoms since admission. He continues to complain of dry heaving and nausea. He denies any chest pain, shortness of breath or palpitations. No fever or chills. Objective - Vital Signs Vital signs: Vital Signs Temp 98.2 F 09/03/19 08:00 Pulse 90 09/03/19 12:00 Resp 18 09/03/19 12:00 BP 130/78 09/03/19 12:00 Pulse Ox 98 09/03/19 12:00 Intake & Output 09/02/19 09/03/19 09/03/19 18:59 06:59 18:59 Intake Total 1874.265 27.955 Output Total 1500 Balance 374.265 27.955 Weight 93.44 kg 86 kg Intake: Intake, IV Titration 954.265 27.955 Amount D5-0.45% NaCl with KCl 900 20Meq/l 1,000 ml @ 150 mls/hr IV .[id number] [facility] Rx# :[id number] Insulin Regular 100 unit 54.265 27.955 In Sodium Chloride 0.9% 100 ml @ 0.1 UNITS/KG/HR 9.437 mls/hr IV .[id number] [facility] Rx#:[id number] Oral 920 0 Output: Urine 1500 - Exam General: [non toxic], [no distress], [appears at stated age] Derm: [warm], [dry] Head: [atraumatic], [normocephalic], [symmetric] Eyes: [EOMI], [no lid lag], [anicteric sclera] Mouth: [no lip lesion], [mucus membranes moist] Cardiovascular: [S1S2 reg], [no murmur], [positive DP pulse bilateral], Lungs: [CTA bilateral], [no rhonchi, no rales] , [no accessory muscle use] Abdominal: [soft], [ nontender to palpation], [no guarding], [no appreciable organomegaly] Ext: [no gross muscle atrophy], [no edema], [no contractures] Neuro: [no focal neuro deficits] Psych: [Alert], [oriented], [appropriate affect] - Labs CBC & Chem 7: 09/02/19 17:30 09/03/19 11:42 Labs: Abnormal Lab Results - Last 24 Hours (Table) 09/02/19 09/02/19 09/02/19 Range/Units 17:30 17:30 17:30 WBC 17.3 H (3.8-10.6) k/uL Hgb 17.8 H (13.0-17.5) gm/dL Neutrophils # 13.9 H (1.3-7.7) k/uL ABG pH (7.35-7.45) ABG pCO2 (35-45) mmHg ABG pO2 (83-108) mmHg ABG HCO3 (21-25) mmol/L ABG O2 Saturation (94-97) % Sodium 133 L (137-145) mmol/L Potassium (3.5-5.1) mmol/L Chloride 97 L (98-107) mmol/L Carbon Dioxide 9 L* (22-30) mmol/L Creatinine (0.66-1.25) mg/dL Glucose 399 H (74-99) mg/dL POC Glucose (mg/dL) (75-99) mg/dL Plasma Lactic Acid Thomas 2.4 H* (0.7-2.0) mmol/L Phosphorus (2.5-4.5) mg/dL Alkaline Phosphatase 160 H (38-126) U/L Urine Protein (Negative) Urine Glucose (UA) (Negative) Urine Ketones (Negative) Urine Bacteria (None) /hpf Hyaline Casts (0-2) /lpf Urine Mucus (None) /hpf 09/02/19 09/02/19 09/02/19 Range/Units 17:30 17:46 19:27 WBC (3.8-10.6) k/uL Hgb (13.0-17.5) gm/dL Neutrophils # (1.3-7.7) k/uL ABG pH 7.25 L (7.35-7.45) ABG pCO2 22 L (35-45) mmHg ABG pO2 119 H (83-108) mmHg ABG HCO3 9 L* (21-25) mmol/L ABG O2 Saturation 98.2 H (94-97) % Sodium (137-145) mmol/L Potassium (3.5-5.1) mmol/L Chloride (98-107) mmol/L Carbon Dioxide (22-30) mmol/L Creatinine (0.66-1.25) mg/dL Glucose (74-99) mg/dL POC Glucose (mg/dL) 382 H (75-99) mg/dL Plasma Lactic Acid Thomas (0.7-2.0) mmol/L Phosphorus (2.5-4.5) mg/dL Alkaline Phosphatase (38-126) U/L Urine Protein 1+ H (Negative) Urine Glucose (UA) 4+ H (Negative) Urine Ketones 4+ H (Negative) Urine Bacteria Rare H (None) /hpf Hyaline Casts 29 H (0-2) /lpf Urine Mucus Rare H (None) /hpf 09/02/19 09/02/19 09/02/19 Range/Units 19:49 20:18 20:40 WBC (3.8-10.6) k/uL Hgb (13.0-17.5) gm/dL Neutrophils # (1.3-7.7) k/uL ABG pH (7.35-7.45) ABG pCO2 (35-45) mmHg ABG pO2 (83-108) mmHg ABG HCO3 (21-25) mmol/L ABG O2 Saturation (94-97) % Sodium 136 L (137-145) mmol/L Potassium (3.5-5.1) mmol/L Chloride (98-107) mmol/L Carbon Dioxide 8 L* (22-30) mmol/L Creatinine (0.66-1.25) mg/dL Glucose 280 H (74-99) mg/dL POC Glucose (mg/dL) 311 H 297 H (75-99) mg/dL Plasma Lactic Acid Thomas (0.7-2.0) mmol/L Phosphorus (2.5-4.5) mg/dL Alkaline Phosphatase (38-126) U/L Urine Protein (Negative) Urine Glucose (UA) (Negative) Urine Ketones (Negative) Urine Bacteria (None) /hpf Hyaline Casts (0-2) /lpf Urine Mucus (None) /hpf 09/02/19 09/02/19 09/02/19 Range/Units 20:41 21:31 21:52 WBC (3.8-10.6) k/uL Hgb (13.0-17.5) gm/dL Neutrophils # (1.3-7.7) k/uL ABG pH (7.35-7.45) ABG pCO2 (35-45) mmHg ABG pO2 (83-108) mmHg ABG HCO3 (21-25) mmol/L ABG O2 Saturation (94-97) % Sodium (137-145) mmol/L Potassium (3.5-5.1) mmol/L Chloride (98-107) mmol/L Carbon Dioxide (22-30) mmol/L Creatinine (0.66-1.25) mg/dL Glucose (74-99) mg/dL POC Glucose (mg/dL) 298 H 266 H (75-99) mg/dL Plasma Lactic Acid Thomas 2.1 H* (0.7-2.0) mmol/L Phosphorus (2.5-4.5) mg/dL Alkaline Phosphatase (38-126) U/L Urine Protein (Negative) Urine Glucose (UA) (Negative) Urine Ketones (Negative) Urine Bacteria (None) /hpf Hyaline Casts (0-2) /lpf Urine Mucus (None) /hpf 09/02/19 09/03/19 09/03/19 Range/Units 22:59 00:04 00:59 WBC (3.8-10.6) k/uL Hgb (13.0-17.5) gm/dL Neutrophils # (1.3-7.7) k/uL ABG pH (7.35-7.45) ABG pCO2 (35-45) mmHg ABG pO2 (83-108) mmHg ABG HCO3 (21-25) mmol/L ABG O2 Saturation (94-97) % Sodium (137-145) mmol/L Potassium (3.5-5.1) mmol/L Chloride (98-107) mmol/L Carbon Dioxide (22-30) mmol/L Creatinine (0.66-1.25) mg/dL Glucose (74-99) mg/dL POC Glucose (mg/dL) 171 H 144 H 158 H (75-99) mg/dL Plasma Lactic Acid Thomas (0.7-2.0) mmol/L Phosphorus (2.5-4.5) mg/dL Alkaline Phosphatase (38-126) U/L Urine Protein (Negative) Urine Glucose (UA) (Negative) Urine Ketones (Negative) Urine Bacteria (None) /hpf Hyaline Casts (0-2) /lpf Urine Mucus (None) /hpf 09/03/19 09/03/19 09/03/19 Range/Units 01:44 02:00 03:02 WBC (3.8-10.6) k/uL Hgb (13.0-17.5) gm/dL Neutrophils # (1.3-7.7) k/uL ABG pH (7.35-7.45) ABG pCO2 (35-45) mmHg ABG pO2 (83-108) mmHg ABG HCO3 (21-25) mmol/L ABG O2 Saturation (94-97) % Sodium 132 L (137-145) mmol/L Potassium (3.5-5.1) mmol/L Chloride (98-107) mmol/L Carbon Dioxide 13 L (22-30) mmol/L Creatinine 0.50 L (0.66-1.25) mg/dL Glucose 156 H (74-99) mg/dL POC Glucose (mg/dL) 158 H 144 H (75-99) mg/dL Plasma Lactic Acid Thomas (0.7-2.0) mmol/L Phosphorus (2.5-4.5) mg/dL Alkaline Phosphatase (38-126) U/L Urine Protein (Negative) Urine Glucose (UA) (Negative) Urine Ketones (Negative) Urine Bacteria (None) /hpf Hyaline Casts (0-2) /lpf Urine Mucus (None) /hpf 09/03/19 09/03/19 09/03/19 Range/Units 04:00 04:32 05:02 WBC (3.8-10.6) k/uL Hgb (13.0-17.5) gm/dL Neutrophils # (1.3-7.7) k/uL ABG pH (7.35-7.45) ABG pCO2 (35-45) mmHg ABG pO2 (83-108) mmHg ABG HCO3 (21-25) mmol/L ABG O2 Saturation (94-97) % Sodium 132 L (137-145) mmol/L Potassium 3.4 L (3.5-5.1) mmol/L Chloride (98-107) mmol/L Carbon Dioxide 13 L (22-30) mmol/L Creatinine 0.48 L (0.66-1.25) mg/dL Glucose 166 H (74-99) mg/dL POC Glucose (mg/dL) 174 H 178 H (75-99) mg/dL Plasma Lactic Acid Thomas (0.7-2.0) mmol/L Phosphorus 2.3 L (2.5-4.5) mg/dL Alkaline Phosphatase (38-126) U/L Urine Protein (Negative) Urine Glucose (UA) (Negative) Urine Ketones (Negative) Urine Bacteria (None) /hpf Hyaline Casts (0-2) /lpf Urine Mucus (None) /hpf 09/03/19 09/03/19 09/03/19 Range/Units 06:05 06:58 07:33 WBC (3.8-10.6) k/uL Hgb (13.0-17.5) gm/dL Neutrophils # (1.3-7.7) k/uL ABG pH (7.35-7.45) ABG pCO2 (35-45) mmHg ABG pO2 (83-108) mmHg ABG HCO3 (21-25) mmol/L ABG O2 Saturation (94-97) % Sodium 131 L (137-145) mmol/L Potassium 3.3 L (3.5-5.1) mmol/L Chloride (98-107) mmol/L Carbon Dioxide 15 L (22-30) mmol/L Creatinine 0.42 L (0.66-1.25) mg/dL Glucose 212 H (74-99) mg/dL POC Glucose (mg/dL) 214 H 207 H (75-99) mg/dL Plasma Lactic Acid Thomas (0.7-2.0) mmol/L Phosphorus 2.2 L (2.5-4.5) mg/dL Alkaline Phosphatase (38-126) U/L Urine Protein (Negative) Urine Glucose (UA) (Negative) Urine Ketones (Negative) Urine Bacteria (None) /hpf Hyaline Casts (0-2) /lpf Urine Mucus (None) /hpf 09/03/19 09/03/19 09/03/19 Range/Units 08:52 09:48 10:52 WBC (3.8-10.6) k/uL Hgb (13.0-17.5) gm/dL Neutrophils # (1.3-7.7) k/uL ABG pH (7.35-7.45) ABG pCO2 (35-45) mmHg ABG pO2 (83-108) mmHg ABG HCO3 (21-25) mmol/L ABG O2 Saturation (94-97) % Sodium (137-145) mmol/L Potassium (3.5-5.1) mmol/L Chloride (98-107) mmol/L Carbon Dioxide (22-30) mmol/L Creatinine (0.66-1.25) mg/dL Glucose (74-99) mg/dL POC Glucose (mg/dL) 224 H 208 H 208 H (75-99) mg/dL Plasma Lactic Acid Thomas (0.7-2.0) mmol/L Phosphorus (2.5-4.5) mg/dL Alkaline Phosphatase (38-126) U/L Urine Protein (Negative) Urine Glucose (UA) (Negative) Urine Ketones (Negative) Urine Bacteria (None) /hpf Hyaline Casts (0-2) /lpf Urine Mucus (None) /hpf 09/03/19 09/03/19 09/03/19 Range/Units 11:42 11:48 12:52 WBC (3.8-10.6) k/uL Hgb (13.0-17.5) gm/dL Neutrophils # (1.3-7.7) k/uL ABG pH (7.35-7.45) ABG pCO2 (35-45) mmHg ABG pO2 (83-108) mmHg ABG HCO3 (21-25) mmol/L ABG O2 Saturation (94-97) % Sodium 134 L (137-145) mmol/L Potassium 3.4 L (3.5-5.1) mmol/L Chloride (98-107) mmol/L Carbon Dioxide 17 L (22-30) mmol/L Creatinine 0.46 L (0.66-1.25) mg/dL Glucose 223 H (74-99) mg/dL POC Glucose (mg/dL) 220 H 233 H (75-99) mg/dL Plasma Lactic Acid Thomas (0.7-2.0) mmol/L Phosphorus (2.5-4.5) mg/dL Alkaline Phosphatase (38-126) U/L Urine Protein (Negative) Urine Glucose (UA) (Negative) Urine Ketones (Negative) Urine Bacteria (None) /hpf Hyaline Casts (0-2) /lpf Urine Mucus (None) /hpf 09/03/19 09/03/19 09/03/19 Range/Units 13:53 14:54 16:15 WBC (3.8-10.6) k/uL Hgb (13.0-17.5) gm/dL Neutrophils # (1.3-7.7) k/uL ABG pH (7.35-7.45) ABG pCO2 (35-45) mmHg ABG pO2 (83-108) mmHg ABG HCO3 (21-25) mmol/L ABG O2 Saturation (94-97) % Sodium (137-145) mmol/L Potassium (3.5-5.1) mmol/L Chloride (98-107) mmol/L Carbon Dioxide (22-30) mmol/L Creatinine (0.66-1.25) mg/dL Glucose (74-99) mg/dL POC Glucose (mg/dL) 317 H 366 H 310 H (75-99) mg/dL Plasma Lactic Acid Thomas (0.7-2.0) mmol/L Phosphorus (2.5-4.5) mg/dL Alkaline Phosphatase (38-126) U/L Urine Protein (Negative) Urine Glucose (UA) (Negative) Urine Ketones (Negative) Urine Bacteria (None) /hpf Hyaline Casts (0-2) /lpf Urine Mucus (None) /hpf 09/03/19 Range/Units 16:59 WBC (3.8-10.6) k/uL Hgb (13.0-17.5) gm/dL Neutrophils # (1.3-7.7) k/uL ABG pH (7.35-7.45) ABG pCO2 (35-45) mmHg ABG pO2 (83-108) mmHg ABG HCO3 (21-25) mmol/L ABG O2 Saturation (94-97) % Sodium (137-145) mmol/L Potassium (3.5-5.1) mmol/L Chloride (98-107) mmol/L Carbon Dioxide (22-30) mmol/L Creatinine (0.66-1.25) mg/dL Glucose (74-99) mg/dL POC Glucose (mg/dL) 272 H (75-99) mg/dL Plasma Lactic Acid Thomas (0.7-2.0) mmol/L Phosphorus (2.5-4.5) mg/dL Alkaline Phosphatase (38-126) U/L Urine Protein (Negative) Urine Glucose (UA) (Negative) Urine Ketones (Negative) Urine Bacteria (None) /hpf Hyaline Casts (0-2) /lpf Urine Mucus (None) /hpf Assessment and Plan Assessment: Diabetic ketoacidosis Hypokalemia Leukocytosis Hypertension Patient's bicarbonate has improved to 17. Anion gap has closed. Plans: Continue D5 half-normal saline with potassium. Continue insulin drip. Reglan as needed for nausea and vomiting. Advance diet as tolerated. Repeat BMP at 7 PM. Potassium 3.4. Plans: Replace via protocol. Repeat BMP tomorrow morning. Patient with leukocytosis of 17.3. Patient is afebrile with no signs of infection. Likely reactive. Plans: Continue to monitor. BP 130/78. Plans: Continue amlodipine. Monitor vitals, adjust medications as necessary. [Patient admitted for DKA. He is pending clinical improvement. Likely DC in 2- 3 days.]
[2019-09-03 18:17] LABS: Glucose,Whole Blood 304 mg/dL (75-99)
[2019-09-03 19:09] LABS: Glucose,Whole Blood 281 mg/dL (75-99)
[2019-09-03 19:46] LABS: African American GFR (CKD) >90 (>60 ml/min/1.73 sqM); Anion Gap 7 mmol/L; Blood Urea Nitrogen 7 mg/dL (9-20); Calcium 8.4 mg/dL (8.4-10.2); Carbon Dioxide 21 mmol/L (22-30); Chloride 102 mmol/L (98-107); Glucose 260 mg/dL (74-99); Non-African American GFR(CKD) >90 (>60 ml/min/1.73 sqM); Potassium 3.3 mmol/L (3.5-5.1); Sodium 130 mmol/L (137-145)
[2019-09-03 19:56] LABS: Glucose,Whole Blood 239 mg/dL (75-99)
[2019-09-03 21:20] LABS: Glucose,Whole Blood 298 mg/dL (75-99)
[2019-09-03] MEDS: INSULIN DETEMIR (LEVEMIR) 100 UNIT/ML SYR SQ SCH (21:27)
[2019-09-03] MEDS: INSULIN ASPART (NovoLOG) 100 UNIT/ML VIAL SQ SCH (21:27)
[2019-09-04] MEDS: METOCLOPRAMIDE 5 MG/ML 2 ML VIAL IVP PRN ×3 (01:23→22:20)
[2019-09-04 06:02] LABS: Glucose,Whole Blood 241 mg/dL (75-99)
[2019-09-04] MEDS: INSULIN ASPART (NovoLOG) 100 UNIT/ML VIAL SQ SCH ×4 (06:23→21:59)
[2019-09-04 06:30] LABS: African American GFR (CKD) >90 (>60 ml/min/1.73 sqM); Anion Gap 8 mmol/L; Blood Urea Nitrogen 6 mg/dL (9-20); Calcium 8.4 mg/dL (8.4-10.2); Carbon Dioxide 20 mmol/L (22-30); Chloride 105 mmol/L (98-107); Glucose 270 mg/dL (74-99); Non-African American GFR(CKD) >90 (>60 ml/min/1.73 sqM); Potassium 3.2 mmol/L (3.5-5.1); Sodium 133 mmol/L (137-145)
[2019-09-04] MEDS: amLODIPine 2.5 MG TAB PO SCH (09:05)
[2019-09-04] MEDS: GABAPENTIN 100 MG CAP PO SCH ×3 (09:05→21:59)
[2019-09-04] MEDS: ATORVASTATIN 20 MG TAB PO SCH (09:05)
[2019-09-04] MEDS: NICOTINE 21MG/24HR PATCH TRANSDERM SCH (09:05)
[2019-09-04] MEDS ORDERED: POTASSIUM CHLORIDE ER 20 MEQ TAB.ER PO STA (10:56)
[2019-09-04 11:56] LABS: Hemoglobin A1C 11.8 % (4.0-6.0)
[2019-09-04 12:36] LABS: Glucose,Whole Blood 364 mg/dL (75-99)
[2019-09-04 14:51] VITALS: BMI 26.3
[2019-09-04 16:22] LABS: Glucose,Whole Blood 257 mg/dL (75-99)
--- NOTE | 2019-09-04 17:56 | P.PN ---
Subjective Progress Note Date: 09/04/19 Principal diagnosis: DKA Patient was seen and examined. No acute events overnight. Patient reports improvement in his symptoms since admission. He continues to complain of dry heaving and nausea along with epigastric discomfort. Transitioned off the insulin drip and D5 half-normal saline with potassium yesterday. He denies any chest pain, shortness of breath or palpitations. No fever or chills. Objective - Vital Signs Vital signs: Vital Signs Temp 98.6 F 09/04/19 15:47 Pulse 100 09/04/19 15:47 Resp 16 09/04/19 15:47 BP 134/95 09/04/19 15:47 Pulse Ox 97 09/04/19 15:47 Intake & Output 09/03/19 09/04/19 09/04/19 18:59 06:59 18:59 Intake Total 37.419 459.316 240 Output Total 600 450 Balance 37.419 -140.684 -210 Weight 88.1 kg 88.1 kg Intake: Intake, IV Titration 37.419 9.316 Amount Insulin Regular 100 unit 37.419 9.316 In Sodium Chloride 0.9% 100 ml @ 0.1 UNITS/KG/HR 9.437 mls/hr IV .[id number] [facility] Rx#:[id number] Oral 0 450 240 Output: Urine 600 450 Other: Voiding Method Toilet Toilet Urinal Urinal # Voids 500 - Exam General: [non toxic], [no distress], [appears at stated age] Derm: [warm], [dry] Head: [atraumatic], [normocephalic], [symmetric] Eyes: [EOMI], [no lid lag], [anicteric sclera] Mouth: [no lip lesion], [mucus membranes moist] Cardiovascular: [S1S2 reg], [no murmur], [positive DP pulse bilateral], Lungs: [CTA bilateral], [no rhonchi, no rales] , [no accessory muscle use] Abdominal: [soft], [epigastric tenderness without rebound], [no guarding], [no appreciable organomegaly] Ext: [no gross muscle atrophy], [no edema], [no contractures] Neuro: [no focal neuro deficits] Psych: [Alert], [oriented], [appropriate affect] - Labs CBC & Chem 7: 09/02/19 17:30 09/04/19 05:27 Labs: Abnormal Lab Results - Last 24 Hours (Table) 09/03/19 09/03/19 09/03/19 Range/Units 07:33 17:58 19:08 Sodium (137-145) mmol/L Potassium (3.5-5.1) mmol/L Carbon Dioxide (22-30) mmol/L BUN (9-20) mg/dL Creatinine (0.66-1.25) mg/dL Glucose (74-99) mg/dL POC Glucose (mg/dL) 304 H 281 H (75-99) mg/dL Hemoglobin A1c 11.8 H (4.0-6.0) % 09/03/19 09/03/19 09/03/19 Range/Units 19:22 19:55 21:19 Sodium 130 L (137-145) mmol/L Potassium 3.3 L (3.5-5.1) mmol/L Carbon Dioxide 21 L (22-30) mmol/L BUN 7 L (9-20) mg/dL Creatinine 0.37 L (0.66-1.25) mg/dL Glucose 260 H (74-99) mg/dL POC Glucose (mg/dL) 239 H 298 H (75-99) mg/dL Hemoglobin A1c (4.0-6.0) % 09/04/19 09/04/19 09/04/19 Range/Units 05:27 06:01 11:36 Sodium 133 L (137-145) mmol/L Potassium 3.2 L (3.5-5.1) mmol/L Carbon Dioxide 20 L (22-30) mmol/L BUN 6 L (9-20) mg/dL Creatinine 0.41 L (0.66-1.25) mg/dL Glucose 270 H (74-99) mg/dL POC Glucose (mg/dL) 241 H 364 H (75-99) mg/dL Hemoglobin A1c (4.0-6.0) % 09/04/19 Range/Units 16:01 Sodium (137-145) mmol/L Potassium (3.5-5.1) mmol/L Carbon Dioxide (22-30) mmol/L BUN (9-20) mg/dL Creatinine (0.66-1.25) mg/dL Glucose (74-99) mg/dL POC Glucose (mg/dL) 257 H (75-99) mg/dL Hemoglobin A1c (4.0-6.0) % Microbiology - Last 24 Hours (Table) 09/02/19 20:40 Blood Culture - Preliminary Blood No Growth after 24 hours Assessment and Plan Assessment: Diabetic ketoacidosis Hypokalemia Leukocytosis Hypertension Patient's bicarbonate has improved to 20. Anion gap has closed. Plans: Continue Levemir 20 units at bedtime. I will start NovoLog 7 units 3 times a day with meals along with insulin sliding scale regular Accu-Cheks and hyperglycemia precautions. Reglan as needed for nausea and vomiting. Advance diet as tolerated. Potassium 3.2. Plans: Replace via protocol. Repeat BMP at 7. Patient with leukocytosis of 17.3. Patient is afebrile with no signs of infection. Likely reactive. Plans: Continue to monitor. BP 134/95 and October but he is more. Plans: Continue amlodipine. Monitor vitals, adjust medications as necessary. [Patient admitted for DKA. Transitioned to subcutaneous insulin. Repeat BMP pending at 7 PM to evaluate potassium and bicarb. Likely DC tomorrow if patient continues to improve.]
[2019-09-04 18:55] LABS: African American GFR (CKD) >90 (>60 ml/min/1.73 sqM); Anion Gap 4 mmol/L; Blood Urea Nitrogen 7 mg/dL (9-20); Calcium 8.7 mg/dL (8.4-10.2); Carbon Dioxide 26 mmol/L (22-30); Chloride 103 mmol/L (98-107); Glucose 239 mg/dL (74-99); Non-African American GFR(CKD) >90 (>60 ml/min/1.73 sqM); Potassium 3.3 mmol/L (3.5-5.1); Sodium 133 mmol/L (137-145)
[2019-09-04 20:47] LABS: Glucose,Whole Blood 231 mg/dL (75-99)
[2019-09-04] MEDS: INSULIN DETEMIR (LEVEMIR) 100 UNIT/ML SYR SQ SCH (21:59)
[2019-09-04 23:15] LABS: Glucose,Whole Blood 260 mg/dL (75-99)
[2019-09-05] MEDS: NICOTINE 21MG/24HR PATCH TRANSDERM SCH (00:43)
[2019-09-05 01:38] VITALS: TEMP 98.5
[2019-09-05] MEDS: METOCLOPRAMIDE 5 MG/ML 2 ML VIAL IVP PRN (05:10)
[2019-09-05 05:17] LABS: Glucose,Whole Blood 224 mg/dL (75-99)
[2019-09-05 05:56] LABS: Glucose,Whole Blood 184 mg/dL (75-99)
[2019-09-05] MEDS: INSULIN ASPART (NovoLOG) 100 UNIT/ML VIAL SQ SCH ×4 (06:28→12:44)
[2019-09-05 08:31] LABS: Basophils % (A) 1 %; Eosinophils # (A) 0.1 k/uL (0-0.7); Eosinophils % (A) 1 %; HGB 15.8 gm/dL (13.0-17.5); Lymphocytes # (A) 1.9 k/uL (1.0-4.8); Lymphocytes % (A) 24 %; MCH 29.9 pg (25.0-35.0); MCHC 33.6 g/dL (31.0-37.0); Mean Platelet Volume 7.7; Monocytes # (A) 0.6 k/uL (0-1.0); Monocytes % (A) 7 %; Neutrophils # (A) 5.1 k/uL (1.3-7.7); Neutrophils % (A) 64 %; Platelet Count 201 k/uL (150-450); RBC 5.28 m/uL (4.30-5.90); RDW 13.1 % (11.5-15.5); WBC 8.1 k/uL (3.8-10.6)
[2019-09-05] MEDS: GABAPENTIN 100 MG CAP PO SCH (08:33)
[2019-09-05] MEDS: ATORVASTATIN 20 MG TAB PO SCH (08:33)
[2019-09-05] MEDS: amLODIPine 2.5 MG TAB PO SCH (08:34)
[2019-09-05 08:36] VITALS: RESP 16
[2019-09-05 08:43] LABS: ALT 25 U/L (4-49); AST 28 U/L (17-59); African American GFR (CKD) >90 (>60 ml/min/1.73 sqM); Albumin 3.8 g/dL (3.5-5.0); Alkaline Phosphatase 115 U/L (38-126); Anion Gap 10 mmol/L; Blood Urea Nitrogen 8 mg/dL (9-20); Carbon Dioxide 24 mmol/L (22-30); Chloride 102 mmol/L (98-107); Glucose 261 mg/dL (74-99); Non-African American GFR(CKD) >90 (>60 ml/min/1.73 sqM); Potassium 3.7 mmol/L (3.5-5.1); Sodium 136 mmol/L (137-145); Total Bilirubin 0.7 mg/dL (0.2-1.3); Total Protein 6.5 g/dL (6.3-8.2)
[2019-09-05 11:24] LABS: Glucose,Whole Blood 205 mg/dL (75-99)
[2019-09-05 12:50] VITALS: BP 138/98; PULSE 107
--- NOTE | 2019-09-05 16:13 | P.DS ---
Providers Date of admission: 09/02/19 19:32 Expected date of discharge: 09/05/19 Attending physician: Brittni Vuong MD Primary care physician: [facility] Course: 68-year-old male with past medical history of hypertension presented to the ED for 1 week history of worsening nausea and vomiting. In the ED, he was found to be in DKA. CT of the abdomen and pelvis was performed which showed cholelithiasis. In the ED, he did have a leukocytosis of 17.3. VBG showed pH of 7.25, pCO2 of 22 and HCO3 of 9. CMP showed sodium of 133, chloride of 97, glucose of 399 and lactic acid of 2.4. Troponin was less than 0.012. Lipase was negative. Urinalysis showed 4+ ketones and 4+ glucose. Serum acetone was positive. Patient was admitted for management of DKA. His DKA was managed via protocol. His bicarbonate did normalize and his anion gap closed at the time of discharge. He was hypokalemic which was replaced via protocol. Repeat potassium prior to discharge was within normal limits. He did have a leukocytosis of 17.3. Repeat CBC prior to discharge showed no leukocytosis. His leukocytosis was thought to be reactive rather than infectious. Diabetic education was consulted and saw the patient prior to discharge. His insulin was titrated and he was eventually discharged on 70:30 18 units twice a day. He was advised of hypoglycemic symptoms. Patient was seen and examined. No acute events overnight. Patient reports mild nausea but significantly improved from admission. He denies any chest pain, shortness breath or palpitations. No fever or chills. Tolerating oral intake. General: [non toxic], [no distress], [appears at stated age] Derm: [warm], [dry] Head: [atraumatic], [normocephalic], [symmetric] Eyes: [EOMI], [no lid lag], [anicteric sclera] Mouth: [no lip lesion], [mucus membranes moist] Cardiovascular: [S1S2 reg], [no murmur], [positive DP pulse bilateral], Lungs: [CTA bilateral], [no rhonchi, no rales] , [no accessory muscle use] Abdominal: [soft], [epigastric tenderness without rebound], [no guarding], [no appreciable organomegaly] Ext: [no gross muscle atrophy], [no edema], [no contractures] Neuro: [no focal neuro deficits] Psych: [Alert], [oriented], [appropriate affect] Diabetic ketoacidosis Hypertension Patient's bicarbonate is now within normal limits. Anion gap has closed. Plans: Tolerating diet well. We will discharge patient home with 7030 insulin 18 units twice a day. He was advised to follow-up with his PCP for further titration of his blood sugars. Patient was advised to obtain glucometer, test strips, lancets, alcohol pads and syringes for his insulin from [facility]. Diabetic education has seen the patient. BP 138/98 and October but he is more. Plans: Continue amlodipine. Monitor vitals, adjust medications as necessary. Patient will be continued on Lipitor. I will add aspirin 81 mg by mouth daily for ASCVD risk. [Patient admitted for DKA. Transitioned to subcutaneous insulin. Patient will need close follow-up with PCP within 3 days of discharge for further insulin titration. Advised of hypoglycemic symptoms. Diabetic education is seen the patient. This complex discharge took about 45 minutes to complete.] Pertinent Studies: CT abdomen and pelvis, chest x-ray Patient Condition at Discharge: Stable Plan - Discharge Summary Discharge Rx Participant: Yes New Discharge Prescriptions: New Aspirin 81 mg PO DAILY #30 chewable Insulin NPH/Reg Insulin 70/30 [humuLIN 70/30 VIAL] 18 unit SQ BID #4 vial Continue amLODIPine [Norvasc] 2.5 mg PO DAILY Gabapentin [Neurontin] 100 mg PO TID Atorvastatin Calcium [Lipitor] 20 mg PO DAILY Hydromorphone (Pain Pump) 0.01 mg SQ-PUMP CONTINUOUS Discharge Medication List Atorvastatin Calcium [Lipitor] 20 mg PO DAILY 09/02/19 [History] Gabapentin [Neurontin] 100 mg PO TID 09/02/19 [History] Hydromorphone (Pain Pump) 0.01 mg SQ-PUMP CONTINUOUS 09/02/19 [History] amLODIPine [Norvasc] 2.5 mg PO DAILY 09/02/19 [History] Aspirin 81 mg PO DAILY #30 chewable 09/05/19 [Rx] Insulin NPH/Reg Insulin 70/30 [humuLIN 70/30 VIAL] 18 unit SQ BID #4 vial 09/05/19 [Rx] Follow up Appointment(s)/Referral(s): Vernon Whitmore DO [Primary Care Provider] - 1-2 days Patient Instructions/Handouts: Foot Care for People with Diabetes (DC), Type 2 Diabetes in Adults: New Diagnosis (GEN) Activity/Diet/Wound Care/Special Instructions: Please leaf size picker diabetic supplies from [facility] pharmacy in [place] [phone] Relion insulin vial $24.88 box of 100 insulin syringes $13.33 Relion Prime glucose meter 'kit' including lancets, test strips and alcohol pads $30 FU PCP within 3 days of DC. Take all medications as advised. Advised of hypoglycemic symptoms. Will need to FU with PCP for further titiration of insulin. Discharge Disposition: HOME SELF-CARE
== END 2019-09-05 15:03 | disposition home or self-care (01) | DRG 639 ==
LOC: EC 17:19 → 3SCARD 19:32
PROVIDERS: ADMIT Internal Medicine; ATTEND Internal Medicine
DX: E11.10 Type 2 diabetes mellitus with ketoacidosis without coma (principal); K80.20 Calculus of gallbladder without cholecystitis without obstruction; D72.829 Elevated white blood cell count, unspecified; D75.1 Secondary polycythemia; E86.0 Dehydration; E87.6 Hypokalemia; I10 Essential (primary) hypertension; I45.81 Long QT syndrome; F17.200 Nicotine dependence, unspecified, uncomplicated; Z20.828 Contact with and (suspected) exposure to other viral communicable diseases; Z79.899 Other long term (current) drug therapy; Z88.5 Allergy status to narcotic agent; Z71.6 Tobacco abuse counseling
CPT/HCPCS: 36415; 36600; 71046; 74177; 80048; 80051; 80053; 81001; 82009; 82565; 82805; 82947; 83036; 83605; 83690; 84100; 84484; 84520; 85025; 87040; 93005; 96361; 96374; 96375; 99285

== ENCOUNTER → 2020-09-06 | Outpatient (CLI) | payer MEDICARE ==
[2020-09-06 16:14] LABS: Appearance,Urine Cloudy (Clear); Bilirubin,Urine Negative (Negative); Blood,Urine Negative (Negative); Color,Urine Yellow; Glucose,Urine (UA) Negative (Negative); Ketones,Urine Trace (Negative); Leukocyte Esterase,Urine Small (Negative); Mucus,Urine Many /hpf; Nitrite,Urine Negative (Negative); PH, Urine 5.5 (5.0-8.0); Protein,Urine 1+ (Negative); RBC,Urine 1 /hpf (0-5); Specific Gravity,Urine 1.029 (1.001-1.035); WBC,Urine 5 /hpf (0-5)
[2020-09-06 23:00] LABS: Basophils # (A) 0.07 X 10*3/uL (0.00-0.10); Basophils % (A) 0.4 %; Eosinophils # (A) 0.28 X 10*3/uL (0.04-0.35); Eosinophils % (A) 1.7 %; HCT 47.3 % (39.6-50.0); HGB 15.7 g/dL (13.0-17.0); Lymphocytes # (A) 3.75 X 10*3/uL (0.90-5.00); Lymphocytes % (A) 22.9 %; MCH 30.3 pg (27.0-32.0); MCHC 33.2 g/dL (32.0-37.0); MCV 91.3 fL (80.0-97.0); Mean Platelet Volume 10.1 fL (9.5-12.2); Monocytes # (A) 1.45 X 10*3/uL (0.20-1.00); Monocytes % (A) 8.9 %; Neutrophils # (A) 10.73 X 10*3/uL (1.80-7.70); Neutrophils % (A) 65.7 %; Platelet Count 250 X 10*3/uL (140-440); RBC 5.18 X 10*6/uL (4.40-5.60); RDW 13.3 % (11.5-14.5); WBC 16.35 X 10*3/uL (4.50-10.00)
[2020-09-07 01:50] LABS: Hemoglobin A1C 6.5 % (4.0-6.0)
[2020-09-07 20:05] LABS: % Iron Saturation 15.69 (15.00-50.00); African American GFR (CKD) 107.1 (60.0-200.0); Albumin 4.7 g/dL (3.80-4.90); Albumin/Globulin Ratio 2.24 (1.60-3.17); Anion Gap 14.5 mmol/L (4.00-12.00); BUN/Creat Ratio 18.75 Ratio (12.00-20.00); Carbon Dioxide 19.5 mmol/L (21.6-31.8); Globulin 2.1 g/dL (1.6-3.3); Non-African American GFR(CKD) 92.4 (60.0-200.0); Total Bilirubin 0.6 mg/dL (0.2-1.2); Total Protein 6.8 g/dL (6.2-8.2)
[2020-09-07 20:14] LABS: Ferritin 194.1 ng/mL (22.0-322.0); T4, Free (Free Thyroxine) 1.3 ng/dL (0.80-1.80)
== END | disposition home or self-care (01) ==
LOC: LABWHC1 14:51
PROVIDERS: ATTEND Psychiatry & Neurology Pain Medicine
DX: Z12.5 Encounter for screening for malignant neoplasm of prostate (principal); R53.83 Other fatigue
CPT/HCPCS: 36415; 80053; 81001; 82550; 82728; 83036; 83540; 83550; 84153; 84439; 84443; 84466; 84481; 85025

== ENCOUNTER 2022-06-17 10:25 | Inpatient (IN) | payer MEDICARE ==
[2022-06-17] MEDS ORDERED: SODIUM CHLORIDE 0.9% 1,000 ML IV STA (11:00)
[2022-06-17] MEDS ORDERED: ONDANSETRON 4 MG/2 ML VIAL IVP STA (11:00)
[2022-06-17 11:34] LABS: Basophils # (A) 0.1 k/uL (0-0.2); Basophils % (A) 0 %; Eosinophils # (A) 0.1 k/uL (0-0.7); Eosinophils % (A) 1 %; HCT 50.9 % (39.0-53.0); HGB 17.4 gm/dL (13.0-17.5); Lymphocytes # (A) 1.6 k/uL (1.0-4.8); Lymphocytes % (A) 14 %; MCHC 34.2 g/dL (31.0-37.0); MCV 87.8 fL (80.0-100.0); Monocytes # (A) 0.5 k/uL (0-1.0); Monocytes % (A) 4 %; Neutrophils # (A) 9.7 k/uL (1.3-7.7); Neutrophils % (A) 80 %; Platelet Count 202 k/uL (150-450); RDW 13.7 % (11.5-15.5); WBC 12.1 k/uL (3.8-10.6)
[2022-06-17 11:36] LABS: Appearance,Urine Clear (Clear); Bilirubin,Urine Negative (Negative); Blood,Urine Negative (Negative); Color,Urine Light Yellow; Glucose,Urine (UA) 4+ (Negative); Ketones,Urine 1+ (Negative); Leukocyte Esterase,Urine Negative (Negative); Nitrite,Urine Negative (Negative); Protein,Urine Trace (Negative); Specific Gravity,Urine 1.038 (1.001-1.035); Urobilinogen,Urine <2.0 mg/dL (<2.0)
--- NOTE | 2022-06-17 11:47 | XR ---
EXAMINATION TYPE: XR chest 2V DATE OF EXAM: 06/17/2022 COMPARISON: NONE TECHNIQUE: PA and lateral views submitted. HISTORY: Elevated blood sugar and weakness FINDINGS: The lungs are clear and there is no pneumothorax, pleural effusion, or focal pneumonia. Heart size normal and no overt failure. Osseous structures demonstrate hypertrophic and degenerative changes of the spine. IMPRESSION: 1. No acute process.
[2022-06-17 11:54] LABS: ALT 26 U/L (4-49); AST 22 U/L (17-59); African American GFR (CKD) >90 (>60 ml/min/1.73 sqM); Albumin 4.8 g/dL (3.5-5.0); Alkaline Phosphatase 198 U/L (38-126); Anion Gap 15 mmol/L; Blood Urea Nitrogen 19 mg/dL (9-20); Calcium 9.6 mg/dL (8.4-10.2); Carbon Dioxide 20 mmol/L (22-30); Chloride 100 mmol/L (98-107); Glucose 414 mg/dL (74-99); Magnesium 1.8 mg/dL (1.6-2.3); Non-African American GFR(CKD) >90 (>60 ml/min/1.73 sqM); Potassium 4.1 mmol/L (3.5-5.1); Sodium 135 mmol/L (137-145); Total Bilirubin 0.7 mg/dL (0.2-1.3); Total Protein 7.8 g/dL (6.3-8.2)
[2022-06-17 11:59] LABS: VBG PH 7.3 (7.31-7.41)
[2022-06-17 12:08] LABS: Partial Thromboplastin Time 22.6 sec (22.0-30.0); Prothrombin Time 10.5 sec (9.0-12.0)
[2022-06-17] MEDS ORDERED: HYDROmorphone 0.5 MG/0.5 ML SYRINGE IVP STA (12:18)
[2022-06-17] MEDS ORDERED: SODIUM CHLORIDE 0.9% 1,000 ML IV ONE (12:55)
--- NOTE | 2022-06-17 13:27 | CT ---
EXAMINATION TYPE: CT abdomen pelvis w con DATE OF EXAM: 06/17/2022 COMPARISON: Prior CT September 02, 2019 HISTORY: Abnormal labs, not eating . Nonlocalized pain with nausea and vomiting. CT DLP: 1198.4 mGycm, Automated Exposure Control for Dose Reduction was Utilized. CONTRAST: CT scan of the abdomen and pelvis is performed with oral and with IV Contrast, patient injected with 100 mL of Isovue 300. FINDINGS: LUNG BASES: No significant abnormality is appreciated. LIVER/GB: The visualized liver remains heterogeneously hypodense consistent with diffuse fatty infilt ration. There is 3.5 cm benign thin-walled cyst in the left hepatic lobe axial image 15. There is occ asional punctate round hypodense lesion scattered throughout the liver redemonstrated too small to fu rther characterize but presumably benign. Dependent small calcified gallstones redemonstrated. No romario rounding fluid or fat stranding. No new biliary dilatation. PANCREAS: No significant abnormality is seen. SPLEEN: No significant abnormality is seen. ADRENALS: No significant abnormality is seen. KIDNEYS: There are 2 small simple-appearing new 1.0 cm thin-walled cysts in the midpole of the right kidney axial images 33 and 34 incidentally noted. BOWEL: No suspicious small or large bowel dilatation. Low-lying cecum into the right pelvis. PROSTATE/SEMINAL VESICLES: Enlarged prostate consistent with BPH bulges on bladder base. LYMPH NODES: No greater than 1cm abdominal or pelvic lymph nodes are appreciated. OSSEOUS STRUCTURES: Moderate disc space narrowing lumbosacral junction redemonstrated. OTHER: There is anterior left lower quadrant metallic stimulator device extending in the posterior so ft tissue over the lower lumbar spine before entering the spinal canal and extending outside the fiel d of view into the thoracic spine similar to prior. Moderate to severe peripheral mixed plaque of the aorta extends into branch vessels. Vascular surgical change right groin region is suspected similar to prior. IMPRESSION: No significant new or acute finding is seen. No suspicious new mass or adenopathy is not ed.
[2022-06-17 13:39] LABS: Glucose,Whole Blood 289 mg/dL (70-110)
[2022-06-17] MEDS ORDERED: NALOXONE 0.4 MG/ML 1 ML VIAL IV PRN (14:47)
[2022-06-17] MEDS ORDERED: DEXTROSE 50% SYRINGE 50 ML IVP PRN ×2 (14:49)
--- NOTE | 2022-06-17 14:53 | ED ---
General Adult HPI - General Chief complaint: Recheck/Abnormal Lab/Rx Stated complaint: High blood sugar Time Seen by Provider: 06/17/22 10:49 Source: patient, RN notes reviewed, old records reviewed Mode of arrival: ambulatory Limitations: no limitations - History of Present Illness Initial comments: Patient is a 71-year-old male with past medical history remarkable for insulin- dependent diabetes, as well as chronic pain with a pain pump who presents emergency Department complaining of intractable nausea and vomiting, as well as hyperglycemia. Presented to his pain clinic outpatient but he had high blood sugars in the 400s there was throwing up and was sent in for further evaluation. Has been in DKA before and is concerned he may be admitted at this time. Nurses mild abdominal discomfort that is generalized. Denies any chest pain or shortness of breath. Denies any diarrhea. Denies any fevers, chills, cough. Denies any urinary complaints. States he does not take his sugars and just takes his insulin. States he has not been eating as well at home lately because "nothing tastes good." Presents for further evaluation at this time. - Related Data Home Medications Medication Instructions Recorded Confirmed Hydromorphone (Pain Pump) 0.01 mg INTRATHECA CONTINUOUS 09/02/19 06/17/22 Insulin NPH/Reg Insulin 70/30 11 unit SQ BID 06/17/22 06/17/22 [humuLIN 70/30 VIAL] Allergies Allergy/AdvReac Type Severity Reaction Status Date / Time morphine Allergy Itching Verified 06/17/22 13:48 all over Review of Systems ROS Statement: Those systems with pertinent positive or pertinent negative responses have been documented in the HPI. Review of Systems: CONST: Denies fever EYES: Denies blurry vision ENT: Denies nasal congestion C/V: Denies Chest pain RESP: Denies shortness of breath GI: Endorses mild generalized abdominal pain : Denies dysuria SKIN: Denies rash. MSK: Denies joint pain. NEURO: Denies headache ROS Other: All systems not noted in ROS Statement are negative. Past Medical History Past Medical History: Diabetes Mellitus, Hypertension History of Any Multi-Drug Resistant Organisms: None Reported Past Surgical History: Orthopedic Surgery Additional Past Surgical History / Comment(s): Pain pump Past Anesthesia/Blood Transfusion Reactions: No Reported Reaction Past Psychological History: No Psychological Hx Reported Smoking Status: Current every day smoker Past Alcohol Use History: None Reported Past Drug Use History: Marijuana - Past Family History family Family Medical History: No Reported History General Exam - General Exam Comments Initial Comments: General: Patient is actively dry heaving in front of me. HEAD: Normal with no signs of head trauma. EYES: PERRLA, EOMI, conjunctiva normal, no discharge. ENT: Hearing grossly intact, normal oropharynx. Dry mucous membranes. RESPIRATORY: Clear breath sounds bilaterally. No wheezes, rales, or rhonchi. C/V: Tachycardic with a regular rhythm. S1 and S2 auscultated, no edema, peripheral pulses 2+ and intact throughout ABD: Abdomen is soft, nondistended. Denies tenderness with no focal area. No guarding. No peritoneal signs. EXT: Normal range of motion, no obvious deformity SKIN: No rashes or lesions observed on exposed skin. NEURO: Alert and oriented 4. Limitations: no limitations Course Vital Signs 06/17/22 06/17/22 06/17/22 10:39 12:28 14:48 Temperature 98 F Pulse Rate 140 H 84 85 Respiratory 18 16 20 Rate Blood Pressure 97/66 136/92 161/95 O2 Sat by Pulse 98 91 L 96 Oximetry Procedures - [place] Protocol (Time Out) Nurse: Jade Arzate Medical Decision Making - Medical Decision Making Was pt. sent in by a medical professional or institution (NICHOLAS Steele, STRIP CATCHER, urgent care, hospital, or [place] [facility] facility...) When possible be specific @ -No Did you speak to anyone other than the patient for history (EMS, parent, family, police, friend...)? What history was obtained from this source @ -Patient's daughter who is at bedside and provides history. Did you review nursing and triage notes (agree or disagree)? Why? @ -I reviewed and agree with nursing and triage notes Were old charts reviewed (outside hosp., previous admission, EMS record, old EKG, old radiological studies, urgent care reports/EKG's, [place] [facility] facility records)? Report findings @ -Yes, old charts reviewed from 2019. This includes EKG. Differential Diagnosis (chest pain, altered mental status, abdominal pain women, abdominal pain men, vaginal bleeding, weakness, fever, dyspnea, syncope, headache, dizziness, GI bleed, back pain, seizure, CVA, palpatations, mental health, musculoskeletal)? @ -Differential Abdominal Pain Men: Appendicitis, cholecystitis, diverticulosis, ischemic bowel, pancreatitis, hepatitis, UTI, gastroenteritis, AAA, incarcerated hernia, bowel obstruction, constipation, inflammatory bowel, hepatitis, peptic ulcer disease, splenic infarction, perforated viscus, testicular torsion, DKA this is not meant to be an all-inclusive list EKG interpreted by me (3pts min.). @ -As above X-rays interpreted by me (1pt min.). @ -Chest x-ray reveals no obvious acute cardiopulmonary process. CT interpreted by me (1pt min.). @ -CT abdomen and pelvis reveals no obvious acute intra-abdominal process. U/S interpreted by me (1pt. min.). @ -None done What testing was considered but not performed or refused? (CT, X-rays, U/S, l abs)? Why? @ -None What meds were considered but not given or refused? Why? @ -None Did you discuss the management of the patient with other professionals (professionals i.e. , PA, STRIP CATCHER, lab, RT, psych nurse, social service coordinator, blown film extrusion operator, teacher, senior major gifts officer, case liner)? Give summary @ -No Was smoking cessation discussed for >3mins.? @ -No Was critical care preformed (if so, how long)? @ -No Were there social determinants of health that impacted care today? How? (Homelessness, low income, unemployed, alcoholism, drug addiction, transportation, low edu. Level, literacy, decrease access to med. care, intermediate, rehab)? @ -No Was there de-escalation of care discussed even if they declined (Discuss DNR or withdrawal of care, Hospice)? DNR status @ -No What co-morbidities impacted this encounter? (DM, HTN, Smoking, COPD, CAD, Cance r, CVA, ARF, Chemo, Hep., AIDS, mental health diagnosis, sleep apnea, morbid obesity)? @ -Insulin dependent diabetes Was patient admitted / discharged? Hospital course, mention meds given and route, prescriptions, significant lab abnormalities, going to OR and other pertinent info. @ -Based on the patient's presentation and physical exam, I'm concerned for diabetic ketoacidosis for the patient. Cannot rule out intra-abdominal process at this time either. We will obtain abdominal laboratory studies, EKG. He was in agreement this plan. He will be given symptomatically treated with IV Zofran, 2 L fluid bolus. He was given Dilaudid for analgesia. Patient initially presents tachycardic with soft blood pressure likely secondary to d ehydration and nausea and vomiting. EKG shows sinus tachycardia and no signs of acute ischemia. Imaging is unremarkable. Laboratory studies are remarkable for mild leukocytosis of 12 which is likely reactive. Patient is not in diabetic ketoacidosis as his anion gap is borderline at 15. Lactic acid is slightly elevated to 2.6 which is likely from his emesis. Patient's Covid, flu, RSV negative. On reevaluation, patient's glucose level is 289. He is feeling improved. He would like to go home. We did oral challenge him however he has intractable nausea and vomiting at this time. We discussed admission for this and he accepted. We discussed that it does not appear that he is in diabetic ketoacidosis as he has no anion gap at this time. He was in agreement with this plan for admission. We'll continue IV fluids, as well as his insulin. I spoke with the admitting physician Dr. Sultana who accepted the patient. Undiagnosed new problem with uncertain prognosis? @ -No Drug Therapy requiring intensive monitoring for toxicity (Heparin, Nitro, Insulin, Cardizem)? @ -No Were any procedures done? @ -No Diagnosis/symptom? @ -Intractable nausea and vomiting Acute, or Chronic, or Acute on Chronic? @ -Acute Uncomplicated (without systemic symptoms) or Complicated (systemic symptoms)? @ -Complicated Side effects of treatment? @ -No Exacerbation, Progression, or Severe Exacerbation? @ -No Poses a threat to life or bodily function? How? (Chest pain, [place], [place], pneumonia, PE, COPD, DKA, ARF, appy, cholecystitis, CVA, Diverticulitis, Homicidal, Suicidal, threat to staff... and all critical care pts) @ -Yes, untreated can result in significant morbidity and mortality. Diagnosis/symptom? @ -Hyperglycemia in the setting of poorly controlled diabetes mellitus. Acute, or Chronic, or Acute on Chronic? @ -Acute on chronic Uncomplicated (without systemic symptoms) or Complicated (systemic symptoms)? @ -Uncomplicated Side effects of treatment? @ -none Exacerbation, Progression, or Severe Exacerbation] @ -no Poses a threat to life or bodily function? @ -no Diagnosis/symptom? @ -Lactic acidosis secondary to nausea and vomiting Acute, or Chronic, or Acute on Chronic? @ -Acute Uncomplicated (without systemic symptoms) or Complicated (systemic symptoms)? @ -Uncomplicated Side effects of treatment? @ -none Exacerbation, Progression, or Severe Exacerbation] @ -no Poses a threat to life or bodily function? @ -no - Lab Data Result diagrams: 06/17/22 11:18 06/17/22 11:18 Lab Results 06/17/22 06/17/22 06/17/22 Range/Units 11:18 11:18 11:18 WBC 12.1 H (3.8-10.6) k/uL RBC 5.80 (4.30-5.90) m/uL Hgb 17.4 (13.0-17.5) gm/dL Hct 50.9 (39.0-53.0) % MCV 87.8 (80.0-100.0) fL MCH 30.0 (25.0-35.0) pg MCHC 34.2 (31.0-37.0) g/dL RDW 13.7 (11.5-15.5) % Plt Count 202 (150-450) k/uL MPV 7.0 Neutrophils % 80 % Lymphocytes % 14 % Monocytes % 4 % Eosinophils % 1 % Basophils % 0 % Neutrophils # 9.7 H (1.3-7.7) k/uL Lymphocytes # 1.6 (1.0-4.8) k/uL Monocytes # 0.5 (0-1.0) k/uL Eosinophils # 0.1 (0-0.7) k/uL Basophils # 0.1 (0-0.2) k/uL PT 10.5 (9.0-12.0) sec INR 1.0 (<1.2) APTT 22.6 (22.0-30.0) sec VBG pH (7.31-7.41) VBG pCO2 (37-51) mmHg VBG HCO3 (24-28) mmol/L Sodium (137-145) mmol/L Potassium (3.5-5.1) mmol/L Chloride (98-107) mmol/L Carbon Dioxide (22-30) mmol/L Anion Gap mmol/L BUN (9-20) mg/dL Creatinine (0.66-1.25) mg/dL Est GFR (CKD-EPI)AfAm (>60 ml/min/1.73 sqM) Est GFR (CKD-EPI)NonAf (>60 ml/min/1.73 sqM) Glucose (74-99) mg/dL POC Glucose (mg/dL) (70-110) mg/dL POC Glu Surgical Services Assistant ID Lactic Ac Sepsis Rflx Plasma Lactic Acid Thomas (0.7-2.0) mmol/L Calcium (8.4-10.2) mg/dL Magnesium (1.6-2.3) mg/dL Total Bilirubin (0.2-1.3) mg/dL AST (17-59) U/L ALT (4-49) U/L Alkaline Phosphatase (38-126) U/L Total Protein (6.3-8.2) g/dL Albumin (3.5-5.0) g/dL Urine Color Light Yellow Urine Appearance Clear (Clear) Urine pH 5.0 (5.0-8.0) Ur Specific [place] 1.038 H (1.001-1.035) Urine Protein Trace H (Negative) Urine Glucose (UA) 4+ H (Negative) Urine Ketones 1+ H (Negative) Urine Blood Negative (Negative) Urine Nitrite Negative (Negative) Urine Bilirubin Negative (Negative) Urine Urobilinogen <2.0 (<2.0) mg/dL Ur Leukocyte Esterase Negative (Negative) Acetone, Qual (Negative) Influenza Type A (PCR) (Not Detectd) Influenza Type B (PCR) (Not Detectd) RSV (PCR) (Not Detectd) SARS-CoV-2 (PCR) (Not Detectd) 06/17/22 06/17/22 06/17/22 Range/Units 11:18 11:18 11:18 WBC (3.8-10.6) k/uL RBC (4.30-5.90) m/uL Hgb (13.0-17.5) gm/dL Hct (39.0-53.0) % MCV (80.0-100.0) fL MCH (25.0-35.0) pg MCHC (31.0-37.0) g/dL RDW (11.5-15.5) % Plt Count (150-450) k/uL MPV Neutrophils % % Lymphocytes % % Monocytes % % Eosinophils % % Basophils % % Neutrophils # (1.3-7.7) k/uL Lymphocytes # (1.0-4.8) k/uL Monocytes # (0-1.0) k/uL Eosinophils # (0-0.7) k/uL Basophils # (0-0.2) k/uL PT (9.0-12.0) sec INR (<1.2) APTT (22.0-30.0) sec VBG pH 7.30 L (7.31-7.41) VBG pCO2 47 (37-51) mmHg VBG HCO3 23 L (24-28) mmol/L Sodium 135 L (137-145) mmol/L Potassium 4.1 (3.5-5.1) mmol/L Chloride 100 (98-107) mmol/L Carbon Dioxide 20 L (22-30) mmol/L Anion Gap 15 mmol/L BUN 19 (9-20) mg/dL Creatinine 0.61 L (0.66-1.25) mg/dL Est GFR (CKD-EPI)AfAm >90 (>60 ml/min/1.73 sqM) Est GFR (CKD-EPI)NonAf >90 (>60 ml/min/1.73 sqM) Glucose 414 H (74-99) mg/dL POC Glucose (mg/dL) (70-110) mg/dL POC Glu Surgical Services Assistant ID Lactic Ac Sepsis Rflx Plasma Lactic Acid Thomas 2.6 H* (0.7-2.0) mmol/L Calcium 9.6 (8.4-10.2) mg/dL Magnesium 1.8 (1.6-2.3) mg/dL Total Bilirubin 0.7 (0.2-1.3) mg/dL AST 22 (17-59) U/L ALT 26 (4-49) U/L Alkaline Phosphatase 198 H (38-126) U/L Total Protein 7.8 (6.3-8.2) g/dL Albumin 4.8 (3.5-5.0) g/dL Urine Color Urine Appearance (Clear) Urine pH (5.0-8.0) Ur Specific [place] (1.001-1.035) Urine Protein (Negative) Urine Glucose (UA) (Negative) Urine Ketones (Negative) Urine Blood (Negative) Urine Nitrite (Negative) Urine Bilirubin (Negative) Urine Urobilinogen (<2.0) mg/dL Ur Leukocyte Esterase (Negative) Acetone, Qual Positive (Negative) Influenza Type A (PCR) (Not Detectd) Influenza Type B (PCR) (Not Detectd) RSV (PCR) (Not Detectd) SARS-CoV-2 (PCR) (Not Detectd) 06/17/22 06/17/22 06/17/22 Range/Units 11:29 11:51 13:38 WBC (3.8-10.6) k/uL RBC (4.30-5.90) m/uL Hgb (13.0-17.5) gm/dL Hct (39.0-53.0) % MCV (80.0-100.0) fL MCH (25.0-35.0) pg MCHC (31.0-37.0) g/dL RDW (11.5-15.5) % Plt Count (150-450) k/uL MPV Neutrophils % % Lymphocytes % % Monocytes % % Eosinophils % % Basophils % % Neutrophils # (1.3-7.7) k/uL Lymphocytes # (1.0-4.8) k/uL Monocytes # (0-1.0) k/uL Eosinophils # (0-0.7) k/uL Basophils # (0-0.2) k/uL PT (9.0-12.0) sec INR (<1.2) APTT (22.0-30.0) sec VBG pH (7.31-7.41) VBG pCO2 (37-51) mmHg VBG HCO3 (24-28) mmol/L Sodium (137-145) mmol/L Potassium (3.5-5.1) mmol/L Chloride (98-107) mmol/L Carbon Dioxide (22-30) mmol/L Anion Gap mmol/L BUN (9-20) mg/dL Creatinine (0.66-1.25) mg/dL Est GFR (CKD-EPI)AfAm (>60 ml/min/1.73 sqM) Est GFR (CKD-EPI)NonAf (>60 ml/min/1.73 sqM) Glucose (74-99) mg/dL POC Glucose (mg/dL) 289 H (70-110) mg/dL POC Glu Surgical Services Assistant ID Winston, Chloé Lactic Ac Sepsis Rflx Y Plasma Lactic Acid Thomas (0.7-2.0) mmol/L Calcium (8.4-10.2) mg/dL Magnesium (1.6-2.3) mg/dL Total Bilirubin (0.2-1.3) mg/dL AST (17-59) U/L ALT (4-49) U/L Alkaline Phosphatase (38-126) U/L Total Protein (6.3-8.2) g/dL Albumin (3.5-5.0) g/dL Urine Color Urine Appearance (Clear) Urine pH (5.0-8.0) Ur Specific [place] (1.001-1.035) Urine Protein (Negative) Urine Glucose (UA) (Negative) Urine Ketones (Negative) Urine Blood (Negative) Urine Nitrite (Negative) Urine Bilirubin (Negative) Urine Urobilinogen (<2.0) mg/dL Ur Leukocyte Esterase (Negative) Acetone, Qual (Negative) Influenza Type A (PCR) Not Detected (Not Detectd) Influenza Type B (PCR) Not Detected (Not Detectd) RSV (PCR) Not Detected (Not Detectd) SARS-CoV-2 (PCR) Not Detected (Not Detectd) - EKG Data -: EKG Interpreted by Me EKG Comments: 12-lead Electrocardiogram Interpretation Note EKG was reviewed and interpreted by myself. 12-lead ECG performed at 1052 is interpreted by me as revealing normal sinus rhythm at a rate of 98 beats per minute.. [place] is normal. [place] interval is 210 ms, QRS duration 71 ms, QTc is 437 ms.. There were no ST or T wave abnormalities to suggest myocardial ischemia or injury. R wave progression across the precordium was satisfactory. By my interpretation this EKG is non-diagnostic for acute ischemia.When compared with EKG from August 2019, no significant change. Disposition Clinical Impression: Nausea and vomiting, Hyperglycemia, Lactic acidosis Disposition: ADMITTED IP TO THIS HOSP Condition: Stable Referrals: None,Stated [Primary Care Provider] - 1-2 days Time of Disposition: 14:40
[2022-06-17] MEDS: HEPARIN SODIUM,PORCINE/PF 5,000 UNIT/0.5 ML SYRINGE SQ SCH (15:21)
[2022-06-17] MEDS: SODIUM CHLORIDE 0.9% 1,000 ML IV SCH ×2 (15:22→21:15)
[2022-06-17 16:56] LABS: Glucose,Whole Blood 300 mg/dL (70-110)
[2022-06-17] MEDS: INSULIN ASPART (NovoLOG) 100 UNIT/ML VIAL SQ SCH (17:58)
[2022-06-17] MEDS: NICOTINE 21MG/24HR PATCH TRANSDERM SCH (18:07)
[2022-06-17 20:02] LABS: Glucose,Whole Blood 272 mg/dL (70-110)
--- NOTE | 2022-06-17 20:21 | P.HPIM ---
History of Present Illness H&P Date: 06/17/22 Chief Complaint: nausea and vomiting Patient is a 71-year-old male with a known history of hypertension, diabetes type 2 insulin-dependent, chronic back pain on pain pump, currently everyday smoker and history of marijuana use presents to ER with the complaints of nausea and vomiting unable to tolerate oral diet for the past few days. Patient initially presented to pain clinic as an outpatient and was found to have blood sugars greater than 400 and was also having episodes of vomiting. Patient was sent to ER for evaluation. Also complains of mild abdominal discomfort which is generalized. No chest pain or shortness of breath. Denies any fever or chills. No dysuria or hematuria. No cough or sputum production. Patient has been having nausea and vomiting in the has not been taking insulin recently. Chest x-ray showed no acute process CT of the abdomen pelvis showed no significant new or acute findings seen. No suspicious new mass adenopathy is noted. EKG showed sinus rhythm with first-degree AV block Laboratory data showed WBC 12.1 hemoglobin 17.4, platelets 202, sodium 135 potassium 4.1 chloride 100 bicarb is 20, anion gap 15. BUN 19 and creatinine 0 .61 and blood sugar was 414 on admission lactic acid 2.6 and magnesium 1.8 AST 22 ALT 26 alk phos 198 Urinalysis showed increased peripheral gravity trace protein and 4+ glucose and 1+ ketones. Acetone positive Influenza A, B, RSV and COVID-19 PCR not detected. Review of Systems Constitutional: Patient denies any fever or chills . Patient does have generalized weakness. Decreased appetite. Abdomen: Complains of nausea vomiting and diffuse abdominal pain. No diarrhea. Cardiovascular: Patient denies any chest pain or short of breath no palpitations. Respiratory: patient denied any cough . no sputum production. No shortness of breath Neurologic: Patient denied any numbness or tingling headache. Musculoskeletal: Patient denies any complaints of joint swelling or deformity. Skin: Negative Psychiatric: Negative Endocrine: No heat or cold intolerance. No recent weight gain. Genitourinary: No dysuria or hematuria. All other 14 point ROS negative except the above Past Medical History Past Medical History: Diabetes Mellitus, Hypertension History of Any Multi-Drug Resistant Organisms: None Reported Past Surgical History: Orthopedic Surgery Additional Past Surgical History / Comment(s): Pain pump Past Anesthesia/Blood Transfusion Reactions: No Reported Reaction Past Psychological History: No Psychological Hx Reported Smoking Status: Current every day smoker Past Alcohol Use History: None Reported Past Drug Use History: Marijuana - Past Family History family Family Medical History: No Reported History Medications and Allergies Home Medications Medication Instructions Recorded Confirmed Type Hydromorphone (Pain Pump) 0.01 mg INTRATHECA CONTINUOUS 09/02/19 06/17/22 History Insulin NPH/Reg Insulin 70/30 11 unit SQ BID 06/17/22 06/17/22 History [humuLIN 70/30 VIAL] Allergies Allergy/AdvReac Type Severity Reaction Status Date / Time morphine Allergy Itching Verified 06/17/22 13:48 all over Physical Exam Vitals: Vital Signs Temp Pulse Pulse Resp BP BP Pulse Ox 06/17/22 18:01 98.2 F 85 18 203/85 98 06/17/22 17:30 90 18 161/97 94 L 06/17/22 14:48 85 20 161/95 96 06/17/22 12:28 84 16 136/92 91 L 06/17/22 10:39 98 F 140 H 18 97/66 98 Intake and Output 06/17/22 06/17/22 06/17/22 06:59 14:59 22:59 Other: Weight 92.986 kg 92.986 kg PHYSICAL EXAMINATION: Patient is lying in the bed comfortably, no acute distress, awake alert and oriented.. HEENT: Normocephalic. Neck is supple. Pupils reactive. Nostrils clear. Oral cavity is moist. Neck reveals no JVD, carotid bruits, or thyromegaly. CHEST EXAMINATION: Trachea is central. Symmetrical expansion. Lung bran clear to auscultation and percussion. CARDIAC: Normal S1, S2 with no gallops. No murmurs ABDOMEN: Soft. Bowel sounds present. Nontender. No organomegaly. No abdominal bruits. Pain pump on the left side of the abdomen. Extremities: reveal no edema. No clubbing or cyanosis Neurologically awake, alert, oriented x3 with well-coordinated movements. No focal deficits noted Skin: No rash or skin lesions. Psychiatric: Coperative. Nonsuicidal, Musculoskeletal: No joint swelling or deformity. Normal range of motion. Results CBC & Chem 7: 06/17/22 11:18 06/17/22 11:18 Labs: Abnormal Lab Results - Last 24 Hours (Table) 06/17/22 06/17/22 06/17/22 Range/Units 11:18 11:18 11:18 WBC 12.1 H (3.8-10.6) k/uL Neutrophils # 9.7 H (1.3-7.7) k/uL VBG pH (7.31-7.41) VBG HCO3 (24-28) mmol/L Sodium 135 L (137-145) mmol/L Carbon Dioxide 20 L (22-30) mmol/L Creatinine 0.61 L (0.66-1.25) mg/dL Glucose 414 H (74-99) mg/dL POC Glucose (mg/dL) (70-110) mg/dL Plasma Lactic Acid Thomas (0.7-2.0) mmol/L Alkaline Phosphatase 198 H (38-126) U/L Ur Specific [place] 1.038 H (1.001-1.035) Urine Protein Trace H (Negative) Urine Glucose (UA) 4+ H (Negative) Urine Ketones 1+ H (Negative) 06/17/22 06/17/22 06/17/22 Range/Units 11:18 11:18 13:38 WBC (3.8-10.6) k/uL Neutrophils # (1.3-7.7) k/uL VBG pH 7.30 L (7.31-7.41) VBG HCO3 23 L (24-28) mmol/L Sodium (137-145) mmol/L Carbon Dioxide (22-30) mmol/L Creatinine (0.66-1.25) mg/dL Glucose (74-99) mg/dL POC Glucose (mg/dL) 289 H (70-110) mg/dL Plasma Lactic Acid Thomas 2.6 H* (0.7-2.0) mmol/L Alkaline Phosphatase (38-126) U/L Ur Specific [place] (1.001-1.035) Urine Protein (Negative) Urine Glucose (UA) (Negative) Urine Ketones (Negative) 06/17/22 06/17/22 Range/Units 16:54 20:01 WBC (3.8-10.6) k/uL Neutrophils # (1.3-7.7) k/uL VBG pH (7.31-7.41) VBG HCO3 (24-28) mmol/L Sodium (137-145) mmol/L Carbon Dioxide (22-30) mmol/L Creatinine (0.66-1.25) mg/dL Glucose (74-99) mg/dL POC Glucose (mg/dL) 300 H 272 H (70-110) mg/dL Plasma Lactic Acid Thomas (0.7-2.0) mmol/L Alkaline Phosphatase (38-126) U/L Ur Specific [place] (1.001-1.035) Urine Protein (Negative) Urine Glucose (UA) (Negative) Urine Ketones (Negative) Thrombosis Risk Factor Assmnt - DVT/VTE Prophylaxis DVT/VTE Prophylaxis: Pharmacologic Prophylaxis ordered - Choose All That Apply Any of the Below Risk Factors Present?: Yes Each Factor Represents 1 point: Obesity (BMI >25) Other Risk Factors: Yes Each Risk Factor Represents 2 Points: Age 61-74 years Thrombosis Risk Factor Assessment Total Risk Factor Score: 3 Thrombosis Risk Factor Assessment Level: Moderate Risk Assessment and Plan Assessment: Hyperglycemia with uncontrolled diabetes type 2 Intractable nausea and vomiting and abdominal pain and poor oral intake. Lactic acidosis Hypertension Chronic back pain on pain pump Currently everyday smoker GI and DVT prophylaxis Plan: Patient will be continued on IV hydration and symptomatic management for nausea and vomiting. Continue with insulin regimen and sliding scale. Continue pain management and follow-up closely. Time with Patient: Greater than 30
[2022-06-17] MEDS: INSULN ASP PRT/INSULIN ASPART 100 UNIT/ML 10 ML VIAL SQ SCH (21:14)
[2022-06-18] MEDS: HEPARIN SODIUM,PORCINE/PF 5,000 UNIT/0.5 ML SYRINGE SQ SCH ×3 (00:28→16:12)
[2022-06-18] MEDS: ONDANSETRON 4 MG/2 ML VIAL IVP PRN ×2 (04:09→19:53)
[2022-06-18 06:14] LABS: Glucose,Whole Blood 272 mg/dL (70-110)
[2022-06-18] MEDS: INSULIN ASPART (NovoLOG) 100 UNIT/ML VIAL SQ SCH ×3 (06:19→17:18)
[2022-06-18] MEDS ORDERED: METOCLOPRAMIDE 5 MG/ML 2 ML VIAL IVP PRN (07:52)
[2022-06-18] MEDS: NICOTINE 21MG/24HR PATCH TRANSDERM SCH (07:59)
[2022-06-18] MEDS: INSULN ASP PRT/INSULIN ASPART 100 UNIT/ML 10 ML VIAL SQ SCH ×2 (07:59→21:03)
[2022-06-18 09:35] LABS: Basophils # (A) 0.03 X 10*3/uL (0.00-0.10); Basophils % (A) 0.3 %; Eosinophils # (A) 0.09 X 10*3/uL (0.04-0.35); Eosinophils % (A) 0.9 %; HCT 46.1 % (39.6-50.0); HGB 15.4 g/dL (13.0-17.0); Immature Grans, Automated 0.3 %; Lymphocytes # (A) 2.69 X 10*3/uL (0.90-5.00); Lymphocytes % (A) 26.1 %; MCH 29.1 pg (27.0-32.0); MCHC 33.4 g/dL (32.0-37.0); Mean Platelet Volume 9.5 fL (9.5-12.2); Monocytes # (A) 0.82 X 10*3/uL (0.20-1.00); NRBC Per 100 WBC 0 /100 WBCS (0.0-0.0); Neutrophils # (A) 6.65 X 10*3/uL (1.80-7.70); Neutrophils % (A) 64.4 %; Platelet Count 186 X 10*3/uL (140-440); RDW 13.6 % (11.5-14.5); WBC 10.31 X 10*3/uL (4.50-10.00)
[2022-06-18 10:07] LABS: African American GFR (CKD) 111.1 (60.0-200.0); BUN/Creat Ratio 21.92 Ratio (12.00-20.00); Blood Urea Nitrogen 15.5 mg/dL (9.0-27.0); Carbon Dioxide 21.5 mmol/L (20.0-27.5); Non-African American GFR(CKD) 95.9 (60.0-200.0)
[2022-06-18 11:40] LABS: Glucose,Whole Blood 273 mg/dL (70-110)
[2022-06-18] MEDS: METOCLOPRAMIDE 5 MG/ML 2 ML VIAL IVP PRN ×2 (14:59→22:12)
[2022-06-18 16:51] LABS: Glucose,Whole Blood 212 mg/dL (70-110)
[2022-06-18 20:37] LABS: Glucose,Whole Blood 246 mg/dL (70-110)
[2022-06-18] MEDS: SODIUM CHLORIDE 0.9% 1,000 ML IV SCH ×2 (21:05→23:14)
[2022-06-18] MEDS ORDERED: SODIUM CHLORIDE 0.9% 1,000 ML IV SCH (22:15)
[2022-06-18] MEDS: FAMOTIDINE 20 MG/2 ML VIAL IV SCH (23:07)
[2022-06-18] MEDS: HYDROmorphone 0.5 MG/0.5 ML SYRINGE IVP PRN (23:07)
[2022-06-18] MEDS: lisinopriL 5 MG TAB PO SCH (23:07)
[2022-06-19] MEDS: HEPARIN SODIUM,PORCINE/PF 5,000 UNIT/0.5 ML SYRINGE SQ SCH ×2 (02:33→07:34)
[2022-06-19] MEDS: METOCLOPRAMIDE 5 MG/ML 2 ML VIAL IVP PRN (02:33)
[2022-06-19 03:50] VITALS: TEMP 98.4
[2022-06-19] MEDS: ONDANSETRON 4 MG/2 ML VIAL IVP PRN (04:00)
[2022-06-19] MEDS: HYDROmorphone 0.5 MG/0.5 ML SYRINGE IVP PRN (04:03)
[2022-06-19 05:48] LABS: Glucose,Whole Blood 211 mg/dL (70-110)
[2022-06-19] MEDS: INSULIN ASPART (NovoLOG) 100 UNIT/ML VIAL SQ SCH ×2 (06:23→11:53)
[2022-06-19] MEDS: NICOTINE 21MG/24HR PATCH TRANSDERM SCH (06:27)
[2022-06-19] MEDS ORDERED: INSULN ASP PRT/INSULIN ASPART 100 UNIT/ML 10 ML VIAL SQ SCH (07:30)
[2022-06-19] MEDS: FAMOTIDINE 20 MG/2 ML VIAL IV SCH (07:34)
[2022-06-19] MEDS: lisinopriL 5 MG TAB PO SCH (07:34)
[2022-06-19 08:02] VITALS: BP 203/86; PULSE 49; RESP 17
[2022-06-19 09:25] LABS: African American GFR (CKD) 111.6 (60.0-200.0); Anion Gap 11.2 mmol/L (10.00-18.00); BUN/Creat Ratio 16.57 Ratio (12.00-20.00); Blood Urea Nitrogen 11.6 mg/dL (9.0-27.0); Calcium 8.9 mg/dL (8.7-10.3); Carbon Dioxide 23.8 mmol/L (20.0-27.5); Non-African American GFR(CKD) 96.3 (60.0-200.0); Potassium 3.6 mmol/L (3.5-5.5)
[2022-06-19 10:32] LABS: Basophils # (A) 0.03 X 10*3/uL (0.00-0.10); Basophils % (A) 0.3 %; Eosinophils # (A) 0.04 X 10*3/uL (0.04-0.35); Eosinophils % (A) 0.4 %; HCT 46.3 % (39.6-50.0); HGB 15.5 g/dL (13.0-17.0); Immature Grans, Automated 0.6 %; Lymphocytes % (A) 29.1 %; MCH 29.6 pg (27.0-32.0); MCHC 33.5 g/dL (32.0-37.0); MCV 88.4 fL (80.0-97.0); Mean Platelet Volume 9.5 fL (9.5-12.2); Monocytes # (A) 0.79 X 10*3/uL (0.20-1.00); Monocytes % (A) 8.8 %; NRBC Per 100 WBC 0 /100 WBCS (0.0-0.0); Neutrophils # (A) 5.42 X 10*3/uL (1.80-7.70); Neutrophils % (A) 60.8 %; Platelet Count 187 X 10*3/uL (140-440); RBC 5.24 X 10*6/uL (4.40-5.60); RDW 13.7 % (11.5-14.5); WBC 8.93 X 10*3/uL (4.50-10.00)
[2022-06-19 11:51] LABS: Glucose,Whole Blood 159 mg/dL (70-110)
== END 2022-06-19 12:44 | disposition home or self-care (01) | DRG 639 ==
LOC: EC 10:25 → 4SSUR 14:47 → OBSVTOIN 06-19 09:08
PROVIDERS: ADMIT Internal Medicine; ATTEND Internal Medicine
DX: E11.9 Type 2 diabetes mellitus without complications (principal); Z79.4 Long term (current) use of insulin; Z96.41 Presence of insulin pump (external) (internal); E86.0 Dehydration; G89.29 Other chronic pain; F17.210 Nicotine dependence, cigarettes, uncomplicated; R11.2 Nausea with vomiting, unspecified; Z20.822 Contact with and (suspected) exposure to COVID-19; I44.0 Atrioventricular block, first degree; M54.9 Dorsalgia, unspecified; Z28.310 Unvaccinated for COVID-19; Z28.21 Immunization not carried out because of patient refusal; I10 Essential (primary) hypertension; Z88.5 Allergy status to narcotic agent; Z96.89 Presence of other specified functional implants
CPT/HCPCS: 36415; 71046; 74177; 80048; 80053; 81003; 82009; 82803; 83605; 83735; 85025; 85610; 85730; 87636; 93005; 94760; 96361; 96374; 96375; 99285

== ENCOUNTER 2022-06-25 22:02 | Emergency (ER) | payer MEDICARE ==
[2022-06-25 22:15] VITALS: BP 166/101; PULSE 104; RESP 16; TEMP 98.5
[2022-06-25 22:28] LABS: Basophils # (A) 0.1 k/uL (0-0.2); Basophils % (A) 1 %; Eosinophils # (A) 0.1 k/uL (0-0.7); Eosinophils % (A) 1 %; HCT 52.6 % (39.0-53.0); HGB 18.5 gm/dL (13.0-17.5); Lymphocytes # (A) 3.5 k/uL (1.0-4.8); Lymphocytes % (A) 27 %; MCH 30.2 pg (25.0-35.0); MCHC 35.1 g/dL (31.0-37.0); Mean Platelet Volume 6.9; Monocytes # (A) 0.9 k/uL (0-1.0); Monocytes % (A) 7 %; Neutrophils # (A) 7.9 k/uL (1.3-7.7); Neutrophils % (A) 61 %; Platelet Count 274 k/uL (150-450); RBC 6.12 m/uL (4.30-5.90); RDW 13.5 % (11.5-15.5); WBC 13.1 k/uL (3.8-10.6)
[2022-06-25 22:39] LABS: ALT 29 U/L (4-49); AST 23 U/L (17-59); African American GFR (CKD) >90 (>60 ml/min/1.73 sqM); Albumin 4.9 g/dL (3.5-5.0); Alkaline Phosphatase 143 U/L (38-126); Amylase 60 U/L (30-110); Anion Gap 11 mmol/L; Blood Urea Nitrogen 17 mg/dL (9-20); Calcium 9.8 mg/dL (8.4-10.2); Carbon Dioxide 22 mmol/L (22-30); Chloride 99 mmol/L (98-107); Glucose 254 mg/dL (74-99); Lipase 221 U/L (23-300); Non-African American GFR(CKD) >90 (>60 ml/min/1.73 sqM); Potassium 4.4 mmol/L (3.5-5.1); Sodium 132 mmol/L (137-145); Total Bilirubin 0.9 mg/dL (0.2-1.3)
[2022-06-25] MEDS ORDERED: HYDROmorphone 1 MG/ML 1 ML SYRINGE IVP STA (23:08)
[2022-06-25] MEDS: ONDANSETRON 4 MG/2 ML VIAL IVP STA (23:23)
--- NOTE | 2022-06-26 00:01 | ED ---
Abdominal Pain HPI - General Chief Complaint: Abdominal Pain Stated Complaint: DKA Time Seen by Provider: 06/25/22 22:54 Source: patient Mode of arrival: ambulatory Limitations: no limitations - History of Present Illness Initial Comments: Patient is a 71-year-old male with history of diabetes and hypertension presenting with chief complaint of abdominal pain and vomiting. Patient was seen here recently for the same complaint, he was admitted from the to the , states that he was "borderline DKA". Patient states that the same pain as well as nausea and vomiting has returned. He admits to abdominal distention. He denies any chest pain or difficulty breathing. No fevers or chills. No diarrhea. No hematochezia, melena, hematemesis. No palpitations or weakness. - Related Data Home Medications Medication Instructions Recorded Confirmed Hydromorphone (Pain Pump) 0.01 mg INTRATHECA CONTINUOUS 09/02/19 06/17/22 Previous Rx's Medication Instructions Recorded Insulin NPH/Reg Insulin 70/30 12 unit SQ BID 30 Days #4 each 06/19/22 [humuLIN 70/30 VIAL] Docusate Sodium [Dok] 100 mg PO DAILY #30 capsule 06/26/22 Ondansetron Odt [Zofran Odt] 4 mg PO Q8HR PRN #30 tab 06/26/22 Allergies Allergy/AdvReac Type Severity Reaction Status Date / Time morphine Allergy Itching Verified 06/17/22 13:48 all over Review of Systems ROS Statement: Those systems with pertinent positive or pertinent negative responses have been documented in the HPI. ROS Other: All systems not noted in ROS Statement are negative. Past Medical History Past Medical History: Diabetes Mellitus, Hypertension History of Any Multi-Drug Resistant Organisms: None Reported Past Surgical History: Orthopedic Surgery Additional Past Surgical History / Comment(s): Pain pump Past Anesthesia/Blood Transfusion Reactions: No Reported Reaction Past Psychological History: No Psychological Hx Reported Smoking Status: Current every day smoker Past Alcohol Use History: None Reported Past Drug Use History: Marijuana - Past Family History family Family Medical History: No Reported History General Exam Limitations: no limitations General appearance: alert, in no apparent distress Head exam: Present: atraumatic, normocephalic, normal inspection Eye exam: Present: normal appearance Neck exam: Present: normal inspection, full ROM Respiratory exam: Present: normal lung sounds bilaterally. Absent: respiratory distress, wheezes, rales, rhonchi, stridor Cardiovascular Exam: Present: regular rate, normal rhythm, normal heart sounds. Absent: systolic murmur, diastolic murmur, rubs, gallop, clicks GI/Abdominal exam: Present: soft, distended, tenderness. Absent: guarding, rebound, rigid Neurological exam: Present: alert, oriented X3, CN II-XII intact Psychiatric exam: Present: normal affect, normal mood Skin exam: Present: warm, dry, intact, normal color. Absent: rash Course Vital Signs 06/25/22 22:08 Temperature 98.5 F Pulse Rate 104 H Respiratory 16 Rate Blood Pressure 166/101 O2 Sat by Pulse 100 Oximetry Medical Decision Making - Medical Decision Making Was pt. sent in by a medical professional or institution (NICHOLAS Steele, OPTICAL MECHANIC, urgent care, hospital, or alf...) When possible be specific @ -No Did you speak to anyone other than the patient for history (EMS, parent, family, police, friend...)? What history was obtained from this source @ -No Did you review nursing and triage notes (agree or disagree)? Why? @ -I reviewed and agree with nursing and triage notes Were old charts reviewed (outside hosp., previous admission, EMS record, old EKG, old radiological studies, urgent care reports/EKG's, alf records)? Report findings @ -Reviewed previous admission Differential Diagnosis (chest pain, altered mental status, abdominal pain women, abdominal pain men, vaginal bleeding, weakness, fever, dyspnea, syncope, headache, dizziness, GI bleed, back pain, seizure, CVA, palpatations, mental health, musculoskeletal)? @ -Differential includes DKA, bowel obstruction, constipation, volvulus, ileus, gastroenteritis, this is not an all inclusive list EKG interpreted by me (3pts min.). @ -Sinus rhythm ventricular rate 97. MT interval 167. QRS 89. QT 381. QTC 435. No acute changes from previous EKG. X-rays interpreted by me (1pt min.). @ -None done CT interpreted by me (1pt min.). @ -CT of abdomen and pelvis shows no acute process. By my interpretation there is significant constipation. U/S interpreted by me (1pt. min.). @ -None done What testing was considered but not performed or refused? (CT, X-rays, U/S, labs)? Why? @ -None What meds were considered but not given or refused? Why? @ -None Did you discuss the management of the patient with other professionals (professionals i.e. , PA, OPTICAL MECHANIC, lab, RT, psych nurse, oncology social work, group home paraprofessional, teacher, conservation officer, telephonic nurse case manager)? Give summary @ -No Was smoking cessation discussed for >3mins.? @ -No Was critical care preformed (if so, how long)? @ -No Were there social determinants of health that impacted care today? How? (Homel essness, low income, unemployed, alcoholism, drug addiction, transportation, low edu. Level, literacy, decrease access to med. care, residential, rehab)? @ -No Was there de-escalation of care discussed even if they declined (Discuss DNR or withdrawal of care, Hospice)? DNR status @ -No What co-morbidities impacted this encounter? (DM, HTN, Smoking, COPD, CAD, Cancer, CVA, ARF, Chemo, Hep., AIDS, mental health diagnosis, sleep apnea, morbid obesity)? @ -Diabetes Was patient admitted / discharged? Hospital course, mention meds given and route, prescriptions, significant lab abnormalities, going to OR and other pertinent info. @ -Patient is a 71-year-old male with history of diabetes presenting with chief complaint of nausea, vomiting, and abdominal pain. Patient was admitted here recently for concerns of elevated blood sugar as well as vomiting. On physical examination abdomen is distended and tender. Lab work shows WBC 13.1. Hemoglobin 18.5, likely due to dehydration. Glucose 254. Anion gap is 11, acetone is negative, and ketones are trace. Patient is not in DKA. CT of the abdomen and pelvis shows no acute process, however it does show significant constipation. Patient currently has a pain pump which would explain his constipation. Patient is educated on these findings. Patient was given antiemetics and is resting comfortably, he is drinking water. He is given an enema and had a bowel movement. He is educated on constipation due to chronic opioid use and on supportive measures at home to take to prevent constipation. Zofran and docusate are sent to his pharmacy. Follow-up with PCP. Report back to ER with any new or worsening symptoms. Discussed return parameters and answered all questions. Patient conveyed verbal understanding and agreed to the plan. I discussed this case in detail with my attending Dr. Davis. Undiagnosed new problem with uncertain prognosis? @ -No Drug Therapy requiring intensive monitoring for toxicity (Heparin, Nitro, Insulin, Cardizem)? @ -No Were any procedures done? @ -No Diagnosis/symptom? @ -Constipation due to chronic opioid use Acute, or Chronic, or Acute on Chronic? @ -Acute on chronic Uncomplicated (without systemic symptoms) or Complicated (systemic symptoms)? @ -Uncomplicated Side effects of treatment? @ -No Exacerbation, Progression, or Severe Exacerbation? @ -No Poses a threat to life or bodily function? How? (Chest pain, USA, [place], pneumonia, PE, COPD, DKA, ARF, appy, cholecystitis, CVA, Diverticulitis, Homicidal, Suicidal, threat to staff... and all critical care pts) @ -No - Lab Data Result diagrams: 06/25/22 22:20 06/25/22 22:20 Lab Results 06/25/22 06/25/22 06/25/22 Range/Units 22:20 22:20 23:15 WBC 13.1 H (3.8-10.6) k/uL RBC 6.12 H (4.30-5.90) m/uL Hgb 18.5 H (13.0-17.5) gm/dL Hct 52.6 (39.0-53.0) % MCV 86.0 (80.0-100.0) fL MCH 30.2 (25.0-35.0) pg MCHC 35.1 (31.0-37.0) g/dL RDW 13.5 (11.5-15.5) % Plt Count 274 (150-450) k/uL MPV 6.9 Neutrophils % 61 % Lymphocytes % 27 % Monocytes % 7 % Eosinophils % 1 % Basophils % 1 % Neutrophils # 7.9 H (1.3-7.7) k/uL Lymphocytes # 3.5 (1.0-4.8) k/uL Monocytes # 0.9 (0-1.0) k/uL Eosinophils # 0.1 (0-0.7) k/uL Basophils # 0.1 (0-0.2) k/uL Sodium 132 L (137-145) mmol/L Potassium 4.4 (3.5-5.1) mmol/L Chloride 99 (98-107) mmol/L Carbon Dioxide 22 (22-30) mmol/L Anion Gap 11 mmol/L BUN 17 (9-20) mg/dL Creatinine 0.65 L (0.66-1.25) mg/dL Est GFR (CKD-EPI)AfAm >90 (>60 ml/min/1.73 sqM) Est GFR (CKD-EPI)NonAf >90 (>60 ml/min/1.73 sqM) Glucose 254 H (74-99) mg/dL Calcium 9.8 (8.4-10.2) mg/dL Total Bilirubin 0.9 (0.2-1.3) mg/dL AST 23 (17-59) U/L ALT 29 (4-49) U/L Alkaline Phosphatase 143 H (38-126) U/L Troponin I (0.000-0.034) ng/mL Total Protein 8.0 (6.3-8.2) g/dL Albumin 4.9 (3.5-5.0) g/dL Amylase 60 (30-110) U/L Lipase 221 (23-300) U/L Urine Color Urine Appearance (Clear) Urine pH (5.0-8.0) Ur Specific [place] (1.001-1.035) Urine Protein (Negative) Urine Glucose (UA) (Negative) Urine Ketones (Negative) Urine Blood (Negative) Urine Nitrite (Negative) Urine Bilirubin (Negative) Urine Urobilinogen (<2.0) mg/dL Ur Leukocyte Esterase (Negative) Urine RBC (0-5) /hpf Urine WBC (0-5) /hpf Urine Mucus (None) /hpf Acetone, Qual Negative (Negative) 06/26/22 06/26/22 Range/Units 00:00 00:41 WBC (3.8-10.6) k/uL RBC (4.30-5.90) m/uL Hgb (13.0-17.5) gm/dL Hct (39.0-53.0) % MCV (80.0-100.0) fL MCH (25.0-35.0) pg MCHC (31.0-37.0) g/dL RDW (11.5-15.5) % Plt Count (150-450) k/uL MPV Neutrophils % % Lymphocytes % % Monocytes % % Eosinophils % % Basophils % % Neutrophils # (1.3-7.7) k/uL Lymphocytes # (1.0-4.8) k/uL Monocytes # (0-1.0) k/uL Eosinophils # (0-0.7) k/uL Basophils # (0-0.2) k/uL Sodium (137-145) mmol/L Potassium (3.5-5.1) mmol/L Chloride (98-107) mmol/L Carbon Dioxide (22-30) mmol/L Anion Gap mmol/L BUN (9-20) mg/dL Creatinine (0.66-1.25) mg/dL Est GFR (CKD-EPI)AfAm (>60 ml/min/1.73 sqM) Est GFR (CKD-EPI)NonAf (>60 ml/min/1.73 sqM) Glucose (74-99) mg/dL Calcium (8.4-10.2) mg/dL Total Bilirubin (0.2-1.3) mg/dL AST (17-59) U/L ALT (4-49) U/L Alkaline Phosphatase (38-126) U/L Troponin I 0.025 (0.000-0.034) ng/mL Total Protein (6.3-8.2) g/dL Albumin (3.5-5.0) g/dL Amylase (30-110) U/L Lipase (23-300) U/L Urine Color Yellow Urine Appearance Clear (Clear) Urine pH 6.0 (5.0-8.0) Ur Specific [place] >1.050 H (1.001-1.035) Urine Protein 1+ H (Negative) Urine Glucose (UA) 4+ H (Negative) Urine Ketones Trace H (Negative) Urine Blood Negative (Negative) Urine Nitrite Negative (Negative) Urine Bilirubin Negative (Negative) Urine Urobilinogen <2.0 (<2.0) mg/dL Ur Leukocyte Esterase Negative (Negative) Urine RBC 2 (0-5) /hpf Urine WBC 1 (0-5) /hpf Urine Mucus Moderate H (None) /hpf Acetone, Qual (Negative) Disposition Clinical Impression: Constipation due to opioid therapy, Nausea & vomiting Disposition: HOME SELF-CARE Condition: Fair Instructions (If sedation given, give patient instructions): Constipation (ED), High Fiber Diet (ED) Additional Instructions: Follow-up with PCP. Report back to ER with any new or worsening symptoms. Take medication as prescribed. Stay well-hydrated. Prescriptions: Docusate Sodium [Dok] 100 mg PO DAILY #30 capsule Ondansetron Odt [Zofran Odt] 4 mg PO Q8HR PRN #30 tab PRN Reason: Nausea Is patient prescribed a controlled substance at d/c from ED?: No Referrals: None,Stated [Primary Care Provider] - 1-2 days Time of Disposition: 02:00
[2022-06-26] MEDS ORDERED: SODIUM CHLORIDE 0.9% 2,000 ML IV ONE (00:34)
[2022-06-26 01:26] LABS: Appearance,Urine Clear (Clear); Bilirubin,Urine Negative (Negative); Blood,Urine Negative (Negative); Color,Urine Yellow; Glucose,Urine (UA) 4+ (Negative); Ketones,Urine Trace (Negative); Leukocyte Esterase,Urine Negative (Negative); Mucus,Urine Moderate /hpf; Nitrite,Urine Negative (Negative); Protein,Urine 1+ (Negative); RBC,Urine 2 /hpf (0-5); Urobilinogen,Urine <2.0 mg/dL (<2.0); WBC,Urine 1 /hpf (0-5)
[2022-06-26 01:27] LABS: Specific Gravity,Urine >1.050 (1.001-1.035)
--- NOTE | 2022-06-26 01:41 | CT ---
EXAMINATION TYPE: CT abdomen pelvis w con DATE OF EXAM: 06/26/2022 COMPARISON: 06/17/2022 HISTORY: Abdominal pain, distention, and vomiting CT DLP: 1141.4 mGycm Automated exposure control for dose reduction was used. CONTRAST: Performed with IV Contrast, patient injected with 100ml mL of Isovue 370. Images obtained from the diaphragm to the floor the pelvis with the IV contrast. The lung bases are clear. No pleural effusion. Heart size is normal. No pericardial effusion. There a re multiple hypodensities in the liver which are likely cysts and measure up to 2.[address] omach appear intact. There is no evidence of pancreatic mass. There are multiple calcified gallstones . The bile measures are not dilated. No adrenal mass. Kidneys show satisfactory contrast opacification. No hydronephrosis. Ureters are not dilated. No retroperitoneal adenopathy. Bladder distends smoothly. No inguinal hernia is prostatic c alcification. No free fluid in the pelvis. No pelvic mass. Appendix not clearly seen. No significant appendix. No mesenteric edema. There is no ascites or free air. No sign of a bowel obstruction. The lumbar vertebrae have normal alignment. There is a catheter in the spinal canal in the lower thor acic spine. No compression fracture. There is vacuum disc at L5-S1. The bony pelvis is intact. There is no evidence of hip fracture. There is implanted device over the left anterior abdomen. IMPRESSION: Multiple hepatic cysts which are slightly increased compared to old CT scan of 09/02/2019 Normal pancreas. Cholelithiasis. Mild fatty infiltration of the liver. No acute abnormality in the abdomen and pelvis.
[2022-06-26] MEDS ORDERED: GLYCERIN ADULT SUPPOSITORY 1 EACH RECTAL STA (02:02)
[2022-06-26] MEDS ORDERED: NA PHOS,M-B/NA PHOS,DI-BA 133 ML ENEMA RECTAL STA (02:06)
== END 2022-06-26 02:51 | disposition home or self-care (01) ==
LOC: EC 22:02
DX: K59.03 Drug induced constipation (principal); T40.2X5A Adverse effect of other opioids, initial encounter; R11.2 Nausea with vomiting, unspecified; E11.9 Type 2 diabetes mellitus without complications; I10 Essential (primary) hypertension; F17.200 Nicotine dependence, unspecified, uncomplicated; F12.90 Cannabis use, unspecified, uncomplicated; Z88.6 Allergy status to analgesic agent
CPT/HCPCS: 99285 ×2; 96374 ×2; 96375 ×2; 96361 ×3; 36415; 93005; 80053; 82150; 82009; 83690; 84484; 85025; 81001; 74177; J2405; J1170; Q9967

== ENCOUNTER 2023-10-17 21:21 | Inpatient (IN) | payer MEDICARE ==
[2023-10-17 21:27] LABS: Glucose,Whole Blood 346 mg/dL (70-110)
--- NOTE | 2023-10-17 22:11 | ED ---
General Adult HPI - General Chief complaint: Nausea/Vomiting/Diarrhea Stated complaint: Hyperglycemia Time Seen by Provider: 10/17/23 21:27 Source: patient, EMS Mode of arrival: EMS Limitations: no limitations - History of Present Illness Initial comments: Dictation was produced using [employer] dictation software. please excuse any grammatical, word or spelling errors. Chief Complaint: 72-year-old male presents with nausea vomiting History of Present Illness: Patient is a 72-year-old insulin-dependent diabetic male presents to the ER for nausea and vomiting. Patient states that today for past several hours he has been having what he describes as almost immediate vomiting with any oral intake. States that his emesis nonbilious nonbloody. Not coffee-ground. Patient [place] any abdominal pain. No diarrhea. No obvious sick contacts. Denies any fever or constitutional symptoms. The ROS documented in this emergency department record has been reviewed and confirmed by me. Those systems with pertinent positive or negative responses have been documented in the HPI. All other systems are other negative and/or noncontributory. - Related Data Home Medications Medication Instructions Recorded Confirmed Hydromorphone (Pain Pump) 0.01 mg INTRATHECA CONTINUOUS 09/02/19 06/17/22 Previous Rx's Medication Instructions Recorded Insulin NPH/Reg Insulin 70/30 12 unit SQ BID 30 Days #4 each 06/19/22 [humuLIN 70/30 VIAL] Docusate Sodium [Dok] 100 mg PO DAILY #30 capsule 06/26/22 Ondansetron Odt [Zofran Odt] 4 mg PO Q8HR PRN #30 tab 06/26/22 Allergies Allergy/AdvReac Type Severity Reaction Status Date / Time morphine Allergy Itching Verified 06/17/22 13:48 all over Review of Systems ROS Statement: Those systems with pertinent positive or pertinent negative responses have been documented in the HPI. ROS Other: All systems not noted in ROS Statement are negative. Past Medical History Past Medical History: Diabetes Mellitus, Hypertension History of Any Multi-Drug Resistant Organisms: None Reported Past Surgical History: Orthopedic Surgery Additional Past Surgical History / Comment(s): Pain pump, R knee Past Anesthesia/Blood Transfusion Reactions: No Reported Reaction Past Psychological History: No Psychological Hx Reported Smoking Status: Current every day smoker Past Alcohol Use History: None Reported Past Drug Use History: Marijuana - Past Family History family Family Medical History: No Reported History General Exam - General Exam Comments Initial Comments: PHYSICAL EXAM: General Impression: Alert and oriented x3, not in acute distress HEENT: Normocephalic atraumatic, extra-ocular movements intact, pupils equal and reactive to light bilaterally, mucous membranes moist. Cardiovascular: Heart regular rate and rhythm Chest: Able to complete full sentences, no retractions, no tachypnea Abdomen: abdomen soft, non-tender, non-distended, no organomegaly Musculoskeletal: Pulses present and equal in all extremities, no peripheral edema Motor: no focal deficits noted Neurological: CN II-XII grossly intact, no focal motor or sensory deficits noted Skin: Intact with no visualized rashes Psych: Normal affect and mood Limitations: no limitations Course Vital Signs 10/17/23 10/17/23 10/17/23 21:23 22:00 23:56 Temperature 98.3 F Pulse Rate 71 87 66 Respiratory 18 17 14 Rate Blood Pressure 193/96 172/93 172/87 O2 Sat by Pulse 97 98 98 Oximetry EKG Findings - EKG Comments: EKG Findings:: My EKG interpretation: Ventricular rate 68, sinus rhythm,. 190, cures 80, QTc 441. No OH prolongation, no QTC prolongation, no ST or T-wave changes noted. Overall, this EKG is unremarkable Medical Decision Making - Medical Decision Making Was pt. sent in by a medical professional or institution (NICHOLAS Steele, JOINER HELPER, urgent care, hospital, or alf...) When possible be specific @ -No Did you speak to anyone other than the patient for history (EMS, parent, family, police, friend...)? What history was obtained from this source @ -Daughter at the bedside states that patient is debilitated due to his dehydration Did you review nursing and triage notes (agree or disagree)? Why? @ -I reviewed and agree with nursing and triage notes Were old charts reviewed (outside hosp., previous admission, EMS record, old EKG, old radiological studies, urgent care reports/EKG's, alf records)? Report findings @ -No old charts were reviewed Differential Diagnosis (chest pain, altered mental status, abdominal pain women, abdominal pain men, vaginal bleeding, musculoskeletal, weakness, fever, dyspnea, syncope, headache, dizziness, GI bleed, back pain, seizure, CVA, palpatations, mental health)? @ -Differential Abdominal Pain Men: Appendicitis, cholecystitis, diverticulosis, ischemic bowel, pancreatitis, hepatitis, UTI, gastroenteritis, AAA, incarcerated hernia, bowel obstruction, constipation, inflammatory bowel, hepatitis, peptic ulcer disease, splenic infarction, perforated viscus, testicular torsion, this is not meant to be an all-inclusive list EKG interpreted by me (3pts min.). @ -None done X-rays interpreted by me (1pt min.). @ -None done CT interpreted by me (1pt min.). @ -CT of the abdomen pelvis with contrast shows circumferential wall thickening of the cecum concerning for underlying mass. Radiology recommends surgery evaluation U/S interpreted by me (1pt. min.). @ -None done What testing was considered but not performed or refused? (CT, X-rays, U/S, labs)? Why? @ -None What meds were considered but not given or refused? Why? @ -None Was smoking cessation discussed for >3mins.? @ -No Were there social determinants of health that impacted care today? How? (Homelessness, low income, unemployed, alcoholism, drug addiction, transportation, low edu. Level, literacy, decrease access to med. care, long term, rehab)? @ -No Was there de-escalation of care discussed even if they declined (Discuss DNR or withdrawal of care, Hospice)? DNR status @ -No What co-morbidities impacted this encounter? (DM, HTN, Smoking, COPD, CAD, Cancer, CVA, ARF, Chemo, Hep., AIDS, mental health diagnosis, sleep apnea, morb id obesity)? @ -None Was patient admitted / discharged? Hospital course, mention meds given and rou te, prescriptions, significant lab abnormalities, going to OR and other pertinent info. @ -72-year-old male presents emergency department for reported intractable nausea and vomiting. Vital signs upon arrival are within acceptable limits. L examination shows well-appearing male he does have significant vomiting. Patient complaining of abdominal pain however has a soft nonsurgical abdomen. Laboratory evaluation obtained. CBC metabolic panel is within acceptable limits. CT shows concerning findings at the cecum suspicious for mass. Radiology recommends surgical evaluation.. Patient does not feel well enough to go home due to his vomiting. Will be admitted with consultation to general surgery Did you discuss the management of the patient with other professionals (professionals i.e. , PA, JOINER HELPER, lab, RT, psych nurse, social media senior associate, aircraft fuselage framer, teacher, ecological technical officer, case finisher)? Give summary @ -Case discussed with hospitalist for admission Was critical care preformed (if so, how long)? @ -No Undiagnosed new problem with uncertain prognosis? @ -No Drug Therapy requiring intensive monitoring for toxicity (Heparin, Nitro, Insulin, Cardizem)? @ -No Were any procedures done? @ -No Diagnosis/symptom? Acute, or Chronic, or Acute on Chronic? Uncomplicated (without systemic symptoms) or Complicated (systemic symptoms)? @ -Intractable vomiting, abnormal CT Side effects of treatment? @ -No Exacerbation, Progression, or Severe Exacerbation? @ -No Poses a threat to life or bodily function? How? (Chest pain, [place], [place], pneumonia, PE, COPD, DKA, ARF, appy, cholecystitis, CVA, Diverticulitis, Homicidal, Suicidal, threat to staff... and all critical care pts) @ -yes - Lab Data Result diagrams: 10/17/23 22:14 10/17/23 22:14 Lab Results 10/17/23 10/17/23 10/17/23 Range/Units 21:26 22:14 22:14 WBC 12.8 H (3.8-10.6) k/uL RBC 5.31 (4.30-5.90) m/uL Hgb 16.4 (13.0-17.5) gm/dL Hct 48.1 (39.0-53.0) % MCV 90.5 (80.0-100.0) fL MCH 30.8 (25.0-35.0) pg MCHC 34.1 (31.0-37.0) g/dL RDW 13.3 (11.5-15.5) % Plt Count 226 (150-450) k/uL MPV 7.6 Neutrophils % 78 % Lymphocytes % 12 % Monocytes % 6 % Eosinophils % 1 % Basophils % 0 % Neutrophils # 10.0 H (1.3-7.7) k/uL Lymphocytes # 1.5 (1.0-4.8) k/uL Monocytes # 0.8 (0-1.0) k/uL Eosinophils # 0.1 (0-0.7) k/uL Basophils # 0.0 (0-0.2) k/uL Sodium 136 L (137-145) mmol/L Potassium 4.1 (3.5-5.1) mmol/L Chloride 105 (98-107) mmol/L Carbon Dioxide 20 L (22-30) mmol/L Anion Gap 11 mmol/L BUN 15 (9-20) mg/dL Creatinine 0.45 L (0.66-1.25) mg/dL Est GFR (CKD-EPI)AfAm >90 (>60 ml/min/1.73 sqM) Est GFR (CKD-EPI)NonAf >90 (>60 ml/min/1.73 sqM) Glucose 357 H (74-99) mg/dL POC Glucose (mg/dL) 346 H (70-110) mg/dL POC Glu Payroll Officer ID Gray Brandt Calcium 9.0 (8.4-10.2) mg/dL Magnesium 1.9 (1.6-2.3) mg/dL Total Bilirubin 0.9 (0.2-1.3) mg/dL AST 20 (17-59) U/L ALT 20 (4-49) U/L Alkaline Phosphatase 133 H (38-126) U/L Total Protein 6.7 (6.3-8.2) g/dL Albumin 4.1 (3.5-5.0) g/dL 10/17/23 Range/Units 23:59 WBC (3.8-10.6) k/uL RBC (4.30-5.90) m/uL Hgb (13.0-17.5) gm/dL Hct (39.0-53.0) % MCV (80.0-100.0) fL MCH (25.0-35.0) pg MCHC (31.0-37.0) g/dL RDW (11.5-15.5) % Plt Count (150-450) k/uL MPV Neutrophils % % Lymphocytes % % Monocytes % % Eosinophils % % Basophils % % Neutrophils # (1.3-7.7) k/uL Lymphocytes # (1.0-4.8) k/uL Monocytes # (0-1.0) k/uL Eosinophils # (0-0.7) k/uL Basophils # (0-0.2) k/uL Sodium (137-145) mmol/L Potassium (3.5-5.1) mmol/L Chloride (98-107) mmol/L Carbon Dioxide (22-30) mmol/L Anion Gap mmol/L BUN (9-20) mg/dL Creatinine (0.66-1.25) mg/dL Est GFR (CKD-EPI)AfAm (>60 ml/min/1.73 sqM) Est GFR (CKD-EPI)NonAf (>60 ml/min/1.73 sqM) Glucose (74-99) mg/dL POC Glucose (mg/dL) 259 H (70-110) mg/dL POC Glu Payroll Officer ID Gray Brandt Calcium (8.4-10.2) mg/dL Magnesium (1.6-2.3) mg/dL Total Bilirubin (0.2-1.3) mg/dL AST (17-59) U/L ALT (4-49) U/L Alkaline Phosphatase (38-126) U/L Total Protein (6.3-8.2) g/dL Albumin (3.5-5.0) g/dL Disposition Clinical Impression: Intractable vomiting Disposition: ADMITTED IP TO [facility] Condition: Fair Referrals: None,Stated [Primary Care Provider] - 1-2 days Decision Time: 02:36
[2023-10-17] MEDS: SODIUM CHLORIDE 0.9% 1,000 ML IV STA (22:30)
[2023-10-17] MEDS: ONDANSETRON 4 MG/2 ML VIAL IVP STA (22:30)
[2023-10-17 22:35] LABS: ALT 20 U/L (4-49); AST 20 U/L (17-59); African American GFR (CKD) >90 (>60 ml/min/1.73 sqM); Albumin 4.1 g/dL (3.5-5.0); Alkaline Phosphatase 133 U/L (38-126); Anion Gap 11 mmol/L; Blood Urea Nitrogen 15 mg/dL (9-20); Carbon Dioxide 20 mmol/L (22-30); Chloride 105 mmol/L (98-107); Glucose 357 mg/dL (74-99); Magnesium 1.9 mg/dL (1.6-2.3); Non-African American GFR(CKD) >90 (>60 ml/min/1.73 sqM); Potassium 4.1 mmol/L (3.5-5.1); Sodium 136 mmol/L (137-145); Total Bilirubin 0.9 mg/dL (0.2-1.3); Total Protein 6.7 g/dL (6.3-8.2)
[2023-10-17 22:59] LABS: Basophils % (A) 0 %; Eosinophils # (A) 0.1 k/uL (0-0.7); Eosinophils % (A) 1 %; HCT 48.1 % (39.0-53.0); HGB 16.4 gm/dL (13.0-17.5); Lymphocytes # (A) 1.5 k/uL (1.0-4.8); Lymphocytes % (A) 12 %; MCH 30.8 pg (25.0-35.0); MCHC 34.1 g/dL (31.0-37.0); MCV 90.5 fL (80.0-100.0); Mean Platelet Volume 7.6; Monocytes # (A) 0.8 k/uL (0-1.0); Monocytes % (A) 6 %; Neutrophils % (A) 78 %; Platelet Count 226 k/uL (150-450); RBC 5.31 m/uL (4.30-5.90); RDW 13.3 % (11.5-15.5); WBC 12.8 k/uL (3.8-10.6)
[2023-10-17] MEDS: INSULIN REGULAR 100 UNIT/ML VIAL (IV) IV ONE (23:30)
[2023-10-18] LABS: Glucose,Whole Blood 259 mg/dL (70-110)
[2023-10-18] MEDS: METOCLOPRAMIDE 5 MG/ML 2 ML VIAL IVP STA (00:45)
--- NOTE | 2023-10-18 02:27 | CT ---
EXAM: CT Abdomen and Pelvis With Intravenous Contrast CLINICAL HISTORY: ITS.REASON CT Reason: abdominal pain TECHNIQUE: Axial computed tomography images of the abdomen and pelvis with intravenous contrast. CTDI is 13.7 mGy and DLP is 1060 mGy-cm. This CT exam was performed using one or more of the following dose reduction techniques: automated exposure control, adjustment of the mA and/or kV according to patient size, and/or use of iterative reconstruction technique. COMPARISON: No relevant prior studies available. FINDINGS: Lung bases: Unremarkable. No mass. No consolidation. ABDOMEN: Liver: Hepatic steatosis. Cyst in the RIGHT hepatic lobe measures 3.3 x 2.0 cm. Gallbladder and bile ducts: Cholelithiasis. No ductal dilation. Pancreas: Unremarkable. No mass. No ductal dilation. Spleen: Unremarkable. No splenomegaly. Adrenals: Unremarkable. No mass. Kidneys and ureters: Unremarkable. No solid mass. No hydronephrosis. Stomach and bowel: Circumferential wall thickening of the cecum, concerning for underlying mass. Colon cancer not excluded. Surgical evaluation recommended. See coronal image 40. No obstruction. PELVIS: Appendix: No findings to suggest acute appendicitis. Bladder: Unremarkable. No mass. Reproductive: Unremarkable as visualized. ABDOMEN and PELVIS: Intraperitoneal space: Unremarkable. No free air. No significant fluid collection. Bones/joints: Degenerative changes of the spine. No acute fracture. No dislocation. Soft tissues: Unremarkable. Vasculature: Atherosclerotic changes of the aorta. No abdominal aortic aneurysm. Lymph nodes: Unremarkable. No enlarged lymph nodes. IMPRESSION: Circumferential wall thickening of the cecum, concerning for underlying mass. Colon cancer not excluded. Surgical evaluation recommended. See coronal image 40.
[2023-10-18] MEDS ORDERED: NALOXONE 0.4 MG/ML 1 ML VIAL IV PRN (02:32)
[2023-10-18] MEDS: NICOTINE 14MG/24HR PATCH TRANSDERM STA (05:47)
[2023-10-18] MEDS: SODIUM CHLORIDE 0.9% 1,000 ML IV SCH (06:10)
[2023-10-18 06:27] LABS: Glucose,Whole Blood 260 mg/dL (70-110)
[2023-10-18] MEDS ORDERED: DEXTROSE 50% SYRINGE 50 ML IVP PRN ×2 (11:25)
[2023-10-18] MEDS: FAMOTIDINE 20 MG/2 ML VIAL IV SCH (11:46)
[2023-10-18 11:53] LABS: Glucose,Whole Blood 332 mg/dL (70-110)
[2023-10-18 11:53] LABS: Glucose,Whole Blood >600 mg/dL (70-110)
--- NOTE | 2023-10-18 12:01 | P.GSCN ---
History of Present Illness Consult date: 10/18/23 History of present illness: CHIEF COMPLAINT: Nausea and vomiting HISTORY OF PRESENT ILLNESS: This is a 72-year-old male who presented with nausea and vomiting. Upon further description of the vomiting patient reports that its phlegm and has had a lot of head nasal congestion. Patient reports having the symptoms for about 3 days. Patient also reports he did have discomfort in the right lower quadrant and firmness that now has resolved. He denies any prior history of colonoscopy. He reports regular bowel movements with no blood in the stools. Patient had a CT scan abdomen pelvis that had reported wall thickening in the cecum and concerning for underlying mass. Colon cancer not excluded. Patient denies any prior colonoscopy. Patient denies any weight loss. PAST MEDICAL HISTORY: See below PAST SURGICAL HISTORY: See below MEDICATIONS: See below ALLERGIES: See below SOCIAL HISTORY: No illicit drug use. Nicotine dependence REVIEW OF SYSTEMS: CONSTITUTIONAL: Denies fever or chills. HEENT: Denies blurred vision, vision changes, or eye pain. Denies hemoptysis CARDIOVASCULAR: Denies chest pain or pressure. RESPIRATORY: No shortness of breath. GASTROINTESTINAL: See HPI for pertinent findings HEMATOLOGIC: Denies bleeding disorders. GENITOURINARY: Denies any blood in urine or increased urinary frequency. SKIN: Denies pruitis. Denies rash. PHYSICAL EXAM: VITAL SIGNS: Reviewed GENERAL: Well-developed in no acute distress. HEENT: No sclera icterus. Extraocular movements grossly intact. Moist buccal mucosa. Head is atraumatic, normocephalic. No nasal drainage. ABDOMEN: Soft. Nondistended. nontender. Pain pump noted on the left side of the abdomen NEUROLOGIC: Alert and oriented. Cranial nerves II through XII grossly intact. LABORATORY DATA: WBC 12.8 Hgb 16.4 platelets 226 Sodium is 136 potassium 4.1 creatinine 0.45 IMAGING: CT scan abdomen pelvis reports circumferential wall thickening of the cecum, concerning for underlying mass. Colon cancer not excluded. ASSESSMENT: 1. Circumferential wall thickening of the cecum with concerns of underlying mass noted on CT 2. Nausea and vomiting vs possible coughing phlegm 3. Hypertension PLAN: -Patient scheduled for EGD and colonoscopy tomorrow with Dr. Soriano -N.p.o. after midnight -Clear liquid diet today -Start Poachable bowel prep Physician Extension Course Counselor note has been reviewed by physician. Signing provider agrees with the documented findings, assessment, and plan of care. I have personally seen and examined the patient, reviewed the SURVEYOR CHAIN HELPER /PAs history, exam and MDM and agree with the assessment and plan as written. Based on total visit time, I have performed more than 50% of the visit. As above: I have personally seen and examined the patient, reviewed the SURVEYOR CHAIN HELPER /PAs history, exam and MDM and agree with the assessment and plan as written. Based on total visit time, I have performed more than 50% of the visit. As above: Patient came to the hospital complaining of nausea and vomiting. Describes intermittent episodes of this over the last few months. Worse over the last week. Also has had intermittent lower abdominal pains right greater than left. CAT scan shows possible abnormality of the cecum. He also has gallstones. No inflammatory changes in the upper abdomen. No evidence of bowel obstruction. Patient is diabetic. Family states he often has issues with nausea and vomiting when his blood sugar is elevated and it is in the 350 range currently. Awaiting medical evaluation for possible DKA diagnosis. Bowel prep was started for upper and lower endoscopy tomorrow however patient says he feels nauseous and if he has further vomiting consider holding off on endoscopy until his nausea and vomiting is improved. Continue clear liquid diet for now. Will follow. Past Medical History Past Medical History: Diabetes Mellitus, Hypertension History of Any Multi-Drug Resistant Organisms: None Reported Past Surgical History: Orthopedic Surgery Additional Past Surgical History / Comment(s): Pain pump, R knee Past Anesthesia/Blood Transfusion Reactions: No Reported Reaction Past Psychological History: No Psychological Hx Reported Smoking Status: Current every day smoker Past Alcohol Use History: None Reported Past Drug Use History: Marijuana - Past Family History family Family Medical History: No Reported History Medications and Allergies Home Medications Medication Instructions Recorded Confirmed Type Insulin NPH/Reg Insulin 70/30 12 unit SQ BID 30 Days #4 each 06/19/22 10/18/23 Rx [humuLIN 70/30 VIAL] Patient Own Pump 0 bag 10/18/23 History Allergies Allergy/AdvReac Type Severity Reaction Status Date / Time morphine Allergy Itching Verified 10/18/23 06:42 all over Surgical - Exam Vital Signs Temp Pulse Resp BP Pulse Ox 98.3 F 71 18 193/96 97 10/17/23 21:23 10/17/23 21:23 10/17/23 21:23 10/17/23 21:23 10/17/23 21:23 Results - Labs 10/17/23 22:14 10/17/23 22:14 Abnormal Lab Results - Last 24 Hours (Table) 10/17/23 10/17/23 10/17/23 Range/Units 21:26 22:14 22:14 WBC 12.8 H (3.8-10.6) k/uL Neutrophils # 10.0 H (1.3-7.7) k/uL Sodium 136 L (137-145) mmol/L Carbon Dioxide 20 L (22-30) mmol/L Creatinine 0.45 L (0.66-1.25) mg/dL Glucose 357 H (74-99) mg/dL POC Glucose (mg/dL) 346 H (70-110) mg/dL Alkaline Phosphatase 133 H (38-126) U/L 10/17/23 10/18/23 Range/Units 23:59 06:26 WBC (3.8-10.6) k/uL Neutrophils # (1.3-7.7) k/uL Sodium (137-145) mmol/L Carbon Dioxide (22-30) mmol/L Creatinine (0.66-1.25) mg/dL Glucose (74-99) mg/dL POC Glucose (mg/dL) 259 H 260 H (70-110) mg/dL Alkaline Phosphatase (38-126) U/L Diabetes panel 10/17/23 Range/Units 22:14 Sodium 136 L (137-145) mmol/L Potassium 4.1 (3.5-5.1) mmol/L Chloride 105 (98-107) mmol/L Carbon Dioxide 20 L (22-30) mmol/L BUN 15 (9-20) mg/dL Creatinine 0.45 L (0.66-1.25) mg/dL Glucose 357 H (74-99) mg/dL Calcium 9.0 (8.4-10.2) mg/dL AST 20 (17-59) U/L ALT 20 (4-49) U/L Alkaline Phosphatase 133 H (38-126) U/L Total Protein 6.7 (6.3-8.2) g/dL Albumin 4.1 (3.5-5.0) g/dL Calcium panel 10/17/23 Range/Units 22:14 Calcium 9.0 (8.4-10.2) mg/dL Albumin 4.1 (3.5-5.0) g/dL Pituitary panel 10/17/23 Range/Units 22:14 Sodium 136 L (137-145) mmol/L Potassium 4.1 (3.5-5.1) mmol/L Chloride 105 (98-107) mmol/L Carbon Dioxide 20 L (22-30) mmol/L BUN 15 (9-20) mg/dL Creatinine 0.45 L (0.66-1.25) mg/dL Glucose 357 H (74-99) mg/dL Calcium 9.0 (8.4-10.2) mg/dL Adrenal panel 10/17/23 Range/Units 22:14 Sodium 136 L (137-145) mmol/L Potassium 4.1 (3.5-5.1) mmol/L Chloride 105 (98-107) mmol/L Carbon Dioxide 20 L (22-30) mmol/L BUN 15 (9-20) mg/dL Creatinine 0.45 L (0.66-1.25) mg/dL Glucose 357 H (74-99) mg/dL Calcium 9.0 (8.4-10.2) mg/dL Total Bilirubin 0.9 (0.2-1.3) mg/dL AST 20 (17-59) U/L ALT 20 (4-49) U/L Alkaline Phosphatase 133 H (38-126) U/L Total Protein 6.7 (6.3-8.2) g/dL Albumin 4.1 (3.5-5.0) g/dL
[2023-10-18] MEDS: INSULIN ASPART (NovoLOG) 100 UNIT/ML VIAL SQ SCH (12:39)
[2023-10-18] MEDS: ONDANSETRON 4 MG/2 ML VIAL IVP PRN (14:28)
--- NOTE | 2023-10-18 16:01 | XR ---
EXAMINATION TYPE: XR chest 1V DATE OF EXAM: 10/18/2023 COMPARISON: 06/17/2022 HISTORY: 72-year-old male with cough TECHNIQUE: Single frontal view of the chest is obtained. FINDINGS: The heart is normal size. Aorta and pulmonary vasculature within normal limits. No consoli dation or pleural effusion. IMPRESSION: No acute process.
[2023-10-18 16:37] LABS: Glucose,Whole Blood 322 mg/dL (70-110)
[2023-10-18] MEDS: HEPARIN SODIUM,PORCINE 5,000 UNIT/ML 1 ML VIAL SQ SCH (17:14)
[2023-10-18] MEDS: PEG 3350 (236 GM/BTL) + LYTES 4,000 ML BOTTLE PO ONE (17:22)
[2023-10-18] MEDS: METOCLOPRAMIDE 5 MG/ML 2 ML VIAL IVP SCH (18:06)
[2023-10-18 20:08] LABS: Glucose,Whole Blood 271 mg/dL (70-110)
--- NOTE | 2023-10-18 23:37 | P.HPIM ---
History of Present Illness H&P Date: 10/18/23 Chief Complaint: Vomiting Patient is a 72-year-old male with a past medical history of diabetes on insulin pump, hypertension, currently everyday smoker and history of marijuana use presents to ER with complaints of intractable nausea and vomiting for the past 3 days. Patient also complaining of more secretions and nasal congestion. He was also complaining of right lower quadrant abdominal pain and firmness on admission. No prior history of colonoscopy. Denied any hematemesis or melena. Patient denies any loss of weight. Patient has been having decreased appetite for the past 6 months. No prior history of cancer. Patient had CT of the abdomen pelvis in the ER showed circumferential wall thickening of the cecum, concerning for underlying mass. Colon cancer not excluded. EKG showed sinus rhythm Laboratory data showed WBC 12.8 hemoglobin 16.4 and platelets 226 sodium 136 potassium 4.1 chloride 105 bicarb is 20 BUN 15 and creatinine 0.45 and blood sugar 357, AST 20 ALT 20 alk phos 133. Review of Systems Constitutional: Patient denies any fever or chills . generalized weakness . no weight loss. Positive for loss of appetite. Abdomen: Patient complains of nausea vomiting and abdominal pain. No diarrhea. Cardiovascular: Patient denies any chest pain or short of breath no palpitations. Respiratory: patient denied any cough or sputum production. No shortness of breath Neurologic: Patient denied any numbness or tingling. no headache. Musculoskeletal: Patient denies any complaints of joint swelling or deformity. Skin: Negative Psychiatric: Negative Endocrine: No heat or cold intolerance. No recent weight gain. Genitourinary: No dysuria or hematuria. All other 14 point ROS negative except the above Past Medical History Past Medical History: Diabetes Mellitus, Hypertension History of Any Multi-Drug Resistant Organisms: None Reported Past Surgical History: Orthopedic Surgery Additional Past Surgical History / Comment(s): Pain pump, R knee Past Anesthesia/Blood Transfusion Reactions: No Reported Reaction Past Psychological History: No Psychological Hx Reported Smoking Status: Current every day smoker Past Alcohol Use History: None Reported Past Drug Use History: Marijuana - Past Family History family Family Medical History: No Reported History Medications and Allergies Home Medications Medication Instructions Recorded Confirmed Type Insulin NPH/Reg Insulin 70/30 12 unit SQ BID 30 Days #4 each 06/19/22 10/18/23 Rx [humuLIN 70/30 VIAL] Patient Own Pump 0 bag 10/18/23 History Allergies Allergy/AdvReac Type Severity Reaction Status Date / Time morphine Allergy Itching Verified 10/18/23 06:42 all over Physical Exam Vitals: Vital Signs Temp Pulse Resp BP Pulse Ox 10/18/23 06:00 81 16 172/88 99 10/18/23 02:00 87 13 143/72 98 10/17/23 23:56 66 14 172/87 98 10/17/23 22:00 87 17 172/93 98 10/17/23 21:23 98.3 F 71 18 193/96 97 Intake and Output 10/17/23 10/18/23 10/18/23 22:59 06:59 14:59 Other: Weight 91.626 kg PHYSICAL EXAMINATION: Patient is lying in the bed appears to mild distress due to significant nausea and vomiting. Awake alert and oriented.. HEENT: Normocephalic. Neck is supple. Pupils reactive. Nostrils clear. Oral cavity is moist. Neck reveals no JVD, carotid bruits, or thyromegaly. CHEST EXAMINATION: Trachea is central. Symmetrical expansion. Lung bran clear to auscultation and percussion. CARDIAC: Normal S1, S2 with no gallops. No murmurs ABDOMEN: Soft. Bowel sounds present. Mild right lower quadrant tenderness. No guarding or rigidity.. No organomegaly. No abdominal bruits. Extremities: reveal no edema. No clubbing or cyanosis Neurologically awake, alert, oriented x3 with well-coordinated movements. No focal deficits noted Skin: No rash or skin lesions. Psychiatric: Coperative. Nonsuicidal Musculoskeletal: No joint swelling or deformity. Normal range of motion. Results CBC & Chem 7: 10/17/23 22:14 10/17/23 22:14 Labs: Abnormal Lab Results - Last 24 Hours (Table) 10/17/23 10/17/23 10/17/23 Range/Units 21:26 22:14 22:14 WBC 12.8 H (3.8-10.6) k/uL Neutrophils # 10.0 H (1.3-7.7) k/uL Sodium 136 L (137-145) mmol/L Carbon Dioxide 20 L (22-30) mmol/L Creatinine 0.45 L (0.66-1.25) mg/dL Glucose 357 H (74-99) mg/dL POC Glucose (mg/dL) 346 H (70-110) mg/dL Alkaline Phosphatase 133 H (38-126) U/L 10/17/23 10/18/23 Range/Units 23:59 06:26 WBC (3.8-10.6) k/uL Neutrophils # (1.3-7.7) k/uL Sodium (137-145) mmol/L Carbon Dioxide (22-30) mmol/L Creatinine (0.66-1.25) mg/dL Glucose (74-99) mg/dL POC Glucose (mg/dL) 259 H 260 H (70-110) mg/dL Alkaline Phosphatase (38-126) U/L Thrombosis Risk Factor Assmnt - DVT/VTE Prophylaxis DVT/VTE Prophylaxis: Pharmacologic Prophylaxis ordered Assessment and Plan Assessment: Colon mass with circumferential wall thickening of the cecum as per CT abdomen pelvis. Intractable nausea and vomiting Hyperglycemia with uncontrolled diabetes on insulin pump at home Hypertension Hypovolemic hyponatremia/pseudohyponatremia Mild leukocytosis GI and DVT prophylaxis with Pepcid and heparin subcu Plan: Patient will be continued on IV hydration with normal saline. Symptomatic management for nausea and vomiting. Monitor H&H. General surgery is planning for colonoscopy tomorrow. Patient will be started on insulin regimen and sliding scale for better blood sugar control. Continue to follow closely. Discussed with her daughter at bedside in detail. Prognosis is guarded at this time. Time with Patient: Greater than 30
[2023-10-19] MEDS: INSULIN DETEMIR (LEVEMIR) 100 UNIT/ML SYR SQ SCH (00:05)
[2023-10-19 00:13] LABS: Glucose,Whole Blood 330 mg/dL (70-110)
[2023-10-19 06:17] LABS: Glucose,Whole Blood 209 mg/dL (70-110)
[2023-10-19 09:38] LABS: Basophils % (A) 0 %; Eosinophils % (A) 0 %; HCT 47.6 % (39.0-53.0); HGB 15.6 gm/dL (13.0-17.5); Lymphocytes # (A) 1.6 k/uL (1.0-4.8); Lymphocytes % (A) 12 %; MCH 29.9 pg (25.0-35.0); MCHC 32.7 g/dL (31.0-37.0); MCV 91.3 fL (80.0-100.0); Mean Platelet Volume 7.7; Monocytes # (A) 0.7 k/uL (0-1.0); Monocytes % (A) 5 %; Neutrophils % (A) 79 %; Platelet Count 253 k/uL (150-450); RBC 5.21 m/uL (4.30-5.90); RDW 13.1 % (11.5-15.5); WBC 13.8 k/uL (3.8-10.6)
[2023-10-19 09:58] LABS: African American GFR (CKD) >90 (>60 ml/min/1.73 sqM); Anion Gap 10 mmol/L; Blood Urea Nitrogen 15 mg/dL (9-20); Calcium 8.7 mg/dL (8.4-10.2); Carbon Dioxide 21 mmol/L (22-30); Chloride 108 mmol/L (98-107); Glucose 154 mg/dL (74-99); Non-African American GFR(CKD) >90 (>60 ml/min/1.73 sqM); Potassium 3.6 mmol/L (3.5-5.1); Sodium 139 mmol/L (137-145)
--- NOTE | 2023-10-19 15:36 | P.PN ---
Subjective Progress Note Date: 10/19/23 CHIEF COMPLAINT: Nausea and vomiting HISTORY OF PRESENT ILLNESS: Patient initially scheduled for EGD and colonoscopy for today however that was canceled due to patient not being able to tolerate the bowel prep yesterday. Also was having elevated blood sugars medicine service has adjusted his insulin. Patient still had episode of vomiting this morning. He is complaining about his chronic back pain and the uncomfortable bed in the ER. Afebrile. BP elevated. WBC 13.8 blood sugar 209 chest x-ray no acute process PHYSICAL EXAM: VITAL SIGNS: Reviewed. GENERAL: Well-developed in no acute distress. ABDOMEN: Soft. Nondistended. Mild tenderness left lower abdomen today NEUROLOGIC: Alert and oriented. Cranial nerves II through XII grossly intact. ASSESSMENT: 1. Circumferential wall thickening of the cecum with concerns of underlying mass noted on CT 2. Nausea and vomiting 3. Hypertension PLAN: -EGD and colonoscopy canceled for today due to patient not able to tolerate bowel prep -Continue clear liquid diet -Continue IV fluids -Continue antiemetics -Hyperglycemia management per medicine service Physician Junior Data Analyst note has been reviewed by physician. Signing provider agrees with the documented findings, assessment, and plan of care. I have personally seen and examined the patient, reviewed the ROLLER VARNISHER /PAs history, exam and MDM and agree with the assessment and plan as written. Based on total visit time, I have performed more than 50% of the visit. As above: Patient doing about the same as yesterday. Still having nausea with intermittent vomiting. Complaining of some mild right lower abdominal discomfort. Says he feels somewhat bloated. Blood sugars have improved. Will order repeat abdominal x-rays for tomorrow although initial CAT scan showed no evidence of bowel obstruction. If patient improved tomorrow will prep tomorrow for upper and lower endoscopy on . Will follow. Objective - Vital Signs Vital signs: Vital Signs Temp 98.2 F 10/19/23 14:00 Pulse 82 10/19/23 14:00 Resp 16 10/19/23 14:00 BP 180/68 10/19/23 14:00 Pulse Ox 95 10/19/23 14:00 FiO2 Intake & Output 10/18/23 10/19/23 10/19/23 18:59 06:59 18:59 Intake Total 900 480 Output Total 1025 Balance 900 -1025 480 Intake: Intake, IV Titration 900 Amount Sodium Chloride 0.9% 1, 900 000 ml @ 75 mls/hr IV . [id number] [facility] Rx#:[id number] Oral 480 Output: Urine 1025 Other: Voiding Method Urinal Urinal - Labs CBC & Chem 7: 10/19/23 09:06 10/19/23 09:06 Labs: Abnormal Lab Results - Last 24 Hours (Table) 10/18/23 10/18/23 10/19/23 Range/Units 16:36 20:02 00:10 WBC (3.8-10.6) k/uL Neutrophils # (1.3-7.7) k/uL Chloride (98-107) mmol/L Carbon Dioxide (22-30) mmol/L Creatinine (0.66-1.25) mg/dL Glucose (74-99) mg/dL POC Glucose (mg/dL) 322 H 271 H 330 H (70-110) mg/dL 10/19/23 10/19/23 10/19/23 Range/Units 06:03 09:06 09:06 WBC 13.8 H (3.8-10.6) k/uL Neutrophils # 11.0 H (1.3-7.7) k/uL Chloride 108 H (98-107) mmol/L Carbon Dioxide 21 L (22-30) mmol/L Creatinine 0.37 L (0.66-1.25) mg/dL Glucose 154 H (74-99) mg/dL POC Glucose (mg/dL) 209 H (70-110) mg/dL
[2023-10-19 15:52] LABS: Glucose,Whole Blood 227 mg/dL (70-110)
[2023-10-19] MEDS: METOCLOPRAMIDE 5 MG/ML 2 ML VIAL IVP STA (15:58)
[2023-10-19] MEDS: KETOROLAC 15 MG/ML 1 ML VIAL IVP STA (18:27)
[2023-10-19] MEDS: ACETAMINOPHEN IV (For NPO) 1,000 MG in EMPTY BAG 1 BAG IVPB PRN (19:26)
[2023-10-19 20:22] LABS: Glucose,Whole Blood 190 mg/dL (70-110)
[2023-10-19] MEDS: POTASSIUM CHLORIDE 20 MEQ in WATER FOR INJECTION 1 100ML.BAG IVPB STA (20:28)
[2023-10-19] MEDS: FAMOTIDINE 20 MG/2 ML VIAL IV SCH (20:29)
[2023-10-19 21:59] LABS: Appearance,Urine Clear (Clear); Bilirubin,Urine Negative (Negative); Blood,Urine Negative (Negative); Color,Urine Light Yellow; Glucose,Urine (UA) 4+ (Negative); Leukocyte Esterase,Urine Negative (Negative); Nitrite,Urine Negative (Negative); Protein,Urine Trace (Negative); Specific Gravity,Urine 1.033 (1.001-1.035); Urobilinogen,Urine <2.0 mg/dL (<2.0)
[2023-10-19 22:23] LABS: Ketones,Urine 4+ (Negative)
--- NOTE | 2023-10-20 01:07 | P.PN ---
Subjective Progress Note Date: 10/19/23 Patient is a 72-year-old male with a past medical history of diabetes on insulin pump, hypertension, currently everyday smoker and history of marijuana use presents to ER with complaints of intractable nausea and vomiting for the past 3 days. Patient also complaining of more secretions and nasal congestion. He was also complaining of right lower quadrant abdominal pain and firmness on admission. No prior history of colonoscopy. Denied any hematemesis or melena. Patient denies any loss of weight. Patient has been having decreased appetite for the past 6 months. No prior history of cancer. Patient had CT of the abdomen pelvis in the ER showed circumferential wall thickening of the cecum, concerning for underlying mass. Colon cancer not excluded. EKG showed sinus rhythm Laboratory data showed WBC 12.8 hemoglobin 16.4 and platelets 226 sodium 136 potassium 4.1 chloride 105 bicarb is 20 BUN 15 and creatinine 0.45 and blood sugar 357, AST 20 ALT 20 alk phos 133. 10/19/2023 Patient is currently lying in bed. Awake alert and oriented x 3. Still having vomiting and unable to tolerate oral diet. No complaints of chest pain or shortness of breath. Patient has been afebrile. Colonoscopy could not be done today due to patient unable to take bowel prep. Laboratory showed WBC 13.8 hemoglobin 15.6 and platelets 253 sodium 139 potassium 3.6 chloride 108 bicarb is 21 anion gap 10. BUN 15 and creatinine 0.37 and blood sugar 154. A1c level is 13.2 Objective - Vital Signs Vital signs: Vital Signs Temp 98.5 F 10/19/23 20:00 Pulse 61 10/19/23 20:00 Resp 18 10/19/23 20:00 BP 163/66 10/19/23 20:00 Pulse Ox 96 10/19/23 20:00 FiO2 Intake & Output 10/19/23 10/19/23 10/20/23 06:59 18:59 06:59 Intake Total 1180 Output Total 1025 200 Balance -1025 980 Intake: Intake, IV Titration 600 Amount Sodium Chloride 0.9% 1, 600 000 ml @ 75 mls/hr IV . [id number] [facility] Rx#:[id number] Oral 580 Output: Urine 1025 Emesis 200 Other: Voiding Method Urinal Urinal Urinal - Exam PHYSICAL EXAMINATION: Patient is lying in the bed appears to mild distress due to significant nausea and vomiting. Awake alert and oriented.. HEENT: Normocephalic. Neck is supple. Pupils reactive. Nostrils clear. Oral cavity is moist. Neck reveals no JVD, carotid bruits, or thyromegaly. CHEST EXAMINATION: Trachea is central. Symmetrical expansion. Lung bran clear to auscultation and percussion. CARDIAC: Normal S1, S2 with no gallops. No murmurs ABDOMEN: Soft. Bowel sounds present. Mild right lower quadrant tenderness. No guarding or rigidity.. No organomegaly. No abdominal bruits. Extremities: reveal no edema. No clubbing or cyanosis Neurologically awake, alert, oriented x3 with well-coordinated movements. No focal deficits noted Skin: No rash or skin lesions. Psychiatric: Coperative. Nonsuicidal Musculoskeletal: No joint swelling or deformity. Normal range of motion. - Labs CBC & Chem 7: 10/19/23 09:06 10/19/23 09:06 Labs: Abnormal Lab Results - Last 24 Hours (Table) 10/19/23 10/19/23 10/19/23 Range/Units 00:10 06:03 09:06 WBC (3.8-10.6) k/uL Neutrophils # (1.3-7.7) k/uL Chloride (98-107) mmol/L Carbon Dioxide (22-30) mmol/L Creatinine (0.66-1.25) mg/dL Glucose (74-99) mg/dL POC Glucose (mg/dL) 330 H 209 H (70-110) mg/dL Hemoglobin A1c 13.2 H (<=6.0) % 10/19/23 10/19/23 10/19/23 Range/Units 09:06 09:06 15:50 WBC 13.8 H (3.8-10.6) k/uL Neutrophils # 11.0 H (1.3-7.7) k/uL Chloride 108 H (98-107) mmol/L Carbon Dioxide 21 L (22-30) mmol/L Creatinine 0.37 L (0.66-1.25) mg/dL Glucose 154 H (74-99) mg/dL POC Glucose (mg/dL) 227 H (70-110) mg/dL Hemoglobin A1c (<=6.0) % 10/19/23 Range/Units 20:20 WBC (3.8-10.6) k/uL Neutrophils # (1.3-7.7) k/uL Chloride (98-107) mmol/L Carbon Dioxide (22-30) mmol/L Creatinine (0.66-1.25) mg/dL Glucose (74-99) mg/dL POC Glucose (mg/dL) 190 H (70-110) mg/dL Hemoglobin A1c (<=6.0) % Assessment and Plan Assessment: Colon mass with circumferential wall thickening of the cecum as per CT abdomen pelvis. Intractable nausea and vomiting Hyperglycemia with uncontrolled diabetes on insulin pump at home. A1c 13.2 Hypertension. Hypovolemic hyponatremia/pseudohyponatremia Mild leukocytosis GI and DVT prophylaxis with Pepcid and heparin subcu Plan: Patient will be continued on IV hydration, changed to Ringer's lactate.. Symptomatic management for nausea and vomiting. Consider CT head if continues to have vomiting. Monitor H&H. General surgery is on board. Colonoscopy could not be done due to patient unable to tolerate bowel prep. Patient was started on insulin regimen and sliding scale for better blood sugar control. Continue to follow closely. Discussed with her daughter at bedside in detail. Prognosis is guarded at this time. Time with Patient: Greater than 30
[2023-10-20 02:07] LABS: Glucose,Whole Blood 165 mg/dL (70-110)
[2023-10-20] MEDS: hydrALAZINE HCL 20 MG/ML 1 ML VIAL IVP PRN (04:00)
[2023-10-20] MEDS: LACTATED RINGERS 1,000 ML IV SCH (04:04)
[2023-10-20 05:38] LABS: Glucose,Whole Blood 167 mg/dL (70-110)
[2023-10-20 07:50] LABS: Basophils % (A) 0 %; Eosinophils # (A) 0.1 k/uL (0-0.7); Eosinophils % (A) 0 %; HCT 48.1 % (39.0-53.0); HGB 15.6 gm/dL (13.0-17.5); Lymphocytes # (A) 1.5 k/uL (1.0-4.8); Lymphocytes % (A) 12 %; MCHC 32.4 g/dL (31.0-37.0); MCV 92.5 fL (80.0-100.0); Mean Platelet Volume 7.8; Monocytes % (A) 8 %; Neutrophils # (A) 9.9 k/uL (1.3-7.7); Neutrophils % (A) 76 %; Platelet Count 251 k/uL (150-450); WBC 13.1 k/uL (3.8-10.6)
[2023-10-20 08:10] LABS: African American GFR (CKD) >90 (>60 ml/min/1.73 sqM); Anion Gap 14 mmol/L; Blood Urea Nitrogen 12 mg/dL (9-20); Calcium 9.1 mg/dL (8.4-10.2); Carbon Dioxide 19 mmol/L (22-30); Chloride 105 mmol/L (98-107); Glucose 174 mg/dL (74-99); Magnesium 1.9 mg/dL (1.6-2.3); Non-African American GFR(CKD) >90 (>60 ml/min/1.73 sqM); Potassium 3.2 mmol/L (3.5-5.1); Sodium 138 mmol/L (137-145)
--- NOTE | 2023-10-20 08:56 | XR ---
EXAMINATION TYPE: XR abdomen 2V DATE OF EXAM: 10/20/2023 CLINICAL DATA: 72 year-old male with vomiting, [facility] COMPARISON: CT 10/18/2023 FINDINGS: Lung bases are clear. No evidence for free intraperitoneal air. No dilated small bowel or air-fluid levels. A few gallstones measuring up to 8 mm in the right upper quadrant. Moderate scattered stool. Generator device projecting over the left hemipelvis. IMPRESSION: 1. Cholelithiasis. 2. No evidence for free air or bowel obstruction. 3. Moderate stool burden. 4. Patient's questioned colonic mass not appreciated radiographically.
[2023-10-20] MEDS ORDERED: Potassium Replacement Protocol 1 EACH MISC MISCELLANE PRN ×2 (09:24→09:29)
[2023-10-20] MEDS: PROCHLORPERAZINE 5 MG TAB PO PRN (10:31)
[2023-10-20] MEDS: POTASSIUM CHLORIDE 10 MEQ in WATER FOR INJECTION 1 100ML.BAG IVPB SCH (10:33)
[2023-10-20] MEDS: SODIUM CHLORIDE 0.9% 1,000 ML IV SCH (10:33)
[2023-10-20 10:57] VITALS: BMI 26.6
[2023-10-20 11:26] LABS: Glucose,Whole Blood 213 mg/dL (70-110)
--- NOTE | 2023-10-20 15:34 | P.PN ---
Subjective Patient is a 72-year-old male with a past medical history of diabetes on insulin pump, hypertension, currently everyday smoker and history of marijuana use presents to ER with complaints of intractable nausea and vomiting for the past 3 days. Patient also complaining of more secretions and nasal congestion. He was also complaining of right lower quadrant abdominal pain and firmness on admission. No prior history of colonoscopy. Denied any hematemesis or melena. Patient denies any loss of weight. Patient has been having decreased appetite for the past 6 months. No prior history of cancer. Patient had CT of the abdomen pelvis in the ER showed circumferential wall thickening of the cecum, concerning for underlying mass. Colon cancer not excluded. EKG showed sinus rhythm Laboratory data showed WBC 12.8 hemoglobin 16.4 and platelets 226 sodium 136 potassium 4.1 chloride 105 bicarb is 20 BUN 15 and creatinine 0.45 and blood sugar 357, AST 20 ALT 20 alk phos 133. 10/19/2023 Patient is currently lying in bed. Awake alert and oriented x 3. Still having vomiting and unable to tolerate oral diet. No complaints of chest pain or shor tness of breath. Patient has been afebrile. Colonoscopy could not be done today due to patient unable to take bowel prep. Laboratory showed WBC 13.8 hemoglobin 15.6 and platelets 253 sodium 139 pota ssium 3.6 chloride 108 bicarb is 21 anion gap 10. BUN 15 and creatinine 0.37 and blood sugar 154. A1c level is 13.2 10/19 Patient still has nausea vomiting, he could not tolerate the preparation for EGD and colonoscopy so it was postponed till tomorrow by surgery team We added Compazine for his treatment to help with his N/V He has mild right lower quadrant abdominal pain and fullness related to his right lower renal cecal mass, patient is aware about his mass and possibility of cancer Patient states he has no PCP as an outpatient Blood pressure slightly elevated with continued Objective - Vital Signs Vital signs: Vital Signs Temp 98.8 F 10/20/23 07:19 Pulse 98 10/20/23 07:19 Resp 18 10/20/23 08:00 BP 187/84 10/20/23 07:19 Pulse Ox 98 10/20/23 07:19 FiO2 Intake & Output 10/19/23 10/20/23 10/20/23 18:59 06:59 18:59 Intake Total 1180 444 Output Total 200 700 Balance 980 -700 444 Weight 91.626 kg Intake: Intake, IV Titration 600 Amount Sodium Chloride 0.9% 1, 600 000 ml @ 75 mls/hr IV . [id number] [facility] Rx#:[id number] Oral 580 444 Output: Urine 700 Emesis 200 Other: Voiding Method Urinal Urinal Urinal - Exam GENERAL: The patient is alert and oriented x3, not in any acute distress. Well developed, well nourished. HEENT: Pupils are round and equally reacting to light. EOMI. No scleral icterus. No conjunctival pallor. Normocephalic, atraumatic. No pharyngeal erythema. No thyromegaly. CARDIOVASCULAR: S1 and S2 present. No murmurs, rubs, or gallops. PULMONARY: Chest is clear to auscultation, no wheezing , no crackles. -ABDOMEN: Soft, nontender, nondistended, normoactive bowel sounds. No palpable organomegaly. Mild right lower quadrant fullness MUSCULOSKELETAL: No joint swelling or deformity. EXTREMITIES: No cyanosis, clubbing, or pedal edema. NEUROLOGICAL: Gross neurological examination did not reveal any focal deficits. SKIN: No rashes. no petechiae. - Labs CBC & Chem 7: 10/20/23 06:52 10/20/23 06:52 Labs: Abnormal Lab Results - Last 24 Hours (Table) 10/19/23 10/19/23 10/19/23 Range/Units 09:06 15:50 20:20 WBC (3.8-10.6) k/uL Neutrophils # (1.3-7.7) k/uL Potassium (3.5-5.1) mmol/L Carbon Dioxide (22-30) mmol/L Creatinine (0.66-1.25) mg/dL Glucose (74-99) mg/dL POC Glucose (mg/dL) 227 H 190 H (70-110) mg/dL Hemoglobin A1c 13.2 H (<=6.0) % Urine Protein (Negative) Urine Glucose (UA) (Negative) Urine Ketones (Negative) 10/19/23 10/20/23 10/20/23 Range/Units 21:00 02:06 05:37 WBC (3.8-10.6) k/uL Neutrophils # (1.3-7.7) k/uL Potassium (3.5-5.1) mmol/L Carbon Dioxide (22-30) mmol/L Creatinine (0.66-1.25) mg/dL Glucose (74-99) mg/dL POC Glucose (mg/dL) 165 H 167 H (70-110) mg/dL Hemoglobin A1c (<=6.0) % Urine Protein Trace H (Negative) Urine Glucose (UA) 4+ H (Negative) Urine Ketones 4+ H (Negative) 10/20/23 10/20/23 10/20/23 Range/Units 06:52 06:52 11:24 WBC 13.1 H (3.8-10.6) k/uL Neutrophils # 9.9 H (1.3-7.7) k/uL Potassium 3.2 L (3.5-5.1) mmol/L Carbon Dioxide 19 L (22-30) mmol/L Creatinine 0.40 L (0.66-1.25) mg/dL Glucose 174 H (74-99) mg/dL POC Glucose (mg/dL) 213 H (70-110) mg/dL Hemoglobin A1c (<=6.0) % Urine Protein (Negative) Urine Glucose (UA) (Negative) Urine Ketones (Negative) Assessment and Plan Assessment: Colon mass with circumferential wall thickening of the cecum as per CT abdomen pelvis. Intractable nausea and vomiting Hyperglycemia with uncontrolled diabetes on insulin pump at home. A1c 13.2 Hypertension. Hypovolemic hyponatremia/pseudohyponatremia Mild leukocytosis GI and DVT prophylaxis with Pepcid and heparin subcu Plan: Patient will be continued on IV hydration, changed to Ringer's lactate.. Symptomatic management for nausea and vomiting. Consider CT head if continues to have vomiting. Monitor H&H. General surgery is on board. Colonoscopy could not be done due to patient unable to tolerate bowel prep. Patient was started on insulin regimen and sliding scale for better blood sugar control. Continue to follow closely. Discussed with her daughter at bedside in detail. Prognosis is guarded at this time.
--- NOTE | 2023-10-20 16:19 | P.PN ---
Subjective Progress Note Date: 10/20/23 CHIEF COMPLAINT: Nausea and vomiting HISTORY OF PRESENT ILLNESS: Patient had episode of vomiting last night. He did tolerate a popsicle for breakfast. He complains of right lower quadrant abdominal pain. He reports no bowel movement. Abdominal x-ray reports cholelithiasis. No evidence for free air or bowel obstruction. Moderate stool burden. Afebrile. Hypertensive medicine service has added blood pressure medications. WBC 13.1 Hgb 15.6 potassium 3.2 and being replaced to 13 PHYSICAL EXAM: VITAL SIGNS: Reviewed. GENERAL: Well-developed in no acute distress. ABDOMEN: Soft. Nondistended. Mild tenderness right lower abdomen NEUROLOGIC: Alert and oriented. Cranial nerves II through XII grossly intact. ASSESSMENT: 1. Circumferential wall thickening of the cecum with concerns of underlying mass noted on CT 2. Nausea and vomiting 3. Hypertension PLAN: -Further recommendations forthcoming per surgeon -Possible EGD and colonoscopy on Wednesday Physician Environmental Services Director note has been reviewed by physician. Signing provider agrees with the documented findings, assessment, and plan of care. I have personally seen and examined the patient, reviewed the CATERER'S AIDE /PAs history, exam and MDM and agree with the assessment and plan as written. Based on total visit time, I have performed more than 50% of the visit. As above: Patient still having nausea and vomiting. Unable to tolerate any liquids. Will proceed with EGD tomorrow to evaluate for possible etiology for persistent vomiting. Objective - Vital Signs Vital signs: Vital Signs Temp 99 F 10/20/23 15:42 Pulse 107 H 10/20/23 15:42 Resp 18 10/20/23 15:42 BP 208/96 10/20/23 15:42 Pulse Ox 98 10/20/23 15:42 FiO2 Intake & Output 10/19/23 10/20/23 10/20/23 18:59 06:59 18:59 Intake Total 1180 444 Output Total 200 700 Balance 980 -700 444 Weight 91.626 kg Intake: Intake, IV Titration 600 Amount Sodium Chloride 0.9% 1, 600 000 ml @ 75 mls/hr IV . [id number] [facility] Rx#:[id number] Oral 580 444 Output: Urine 700 Emesis 200 Other: Voiding Method Urinal Urinal Urinal - Labs CBC & Chem 7: 10/20/23 06:52 07/17/24 06:52 Labs: Abnormal Lab Results - Last 24 Hours (Table) 10/19/23 10/19/23 10/19/23 Range/Units 09:06 20:20 21:00 WBC (3.8-10.6) k/uL Neutrophils # (1.3-7.7) k/uL Potassium (3.5-5.1) mmol/L Carbon Dioxide (22-30) mmol/L Creatinine (0.66-1.25) mg/dL Glucose (74-99) mg/dL POC Glucose (mg/dL) 190 H (70-110) mg/dL Hemoglobin A1c 13.2 H (<=6.0) % Urine Protein Trace H (Negative) Urine Glucose (UA) 4+ H (Negative) Urine Ketones 4+ H (Negative) 10/20/23 10/20/23 10/20/23 Range/Units 02:06 05:37 06:52 WBC 13.1 H (3.8-10.6) k/uL Neutrophils # 9.9 H (1.3-7.7) k/uL Potassium (3.5-5.1) mmol/L Carbon Dioxide (22-30) mmol/L Creatinine (0.66-1.25) mg/dL Glucose (74-99) mg/dL POC Glucose (mg/dL) 165 H 167 H (70-110) mg/dL Hemoglobin A1c (<=6.0) % Urine Protein (Negative) Urine Glucose (UA) (Negative) Urine Ketones (Negative) 10/20/23 10/20/23 Range/Units 06:52 11:24 WBC (3.8-10.6) k/uL Neutrophils # (1.3-7.7) k/uL Potassium 3.2 L (3.5-5.1) mmol/L Carbon Dioxide 19 L (22-30) mmol/L Creatinine 0.40 L (0.66-1.25) mg/dL Glucose 174 H (74-99) mg/dL POC Glucose (mg/dL) 213 H (70-110) mg/dL Hemoglobin A1c (<=6.0) % Urine Protein (Negative) Urine Glucose (UA) (Negative) Urine Ketones (Negative)
[2023-10-20] MEDS: hydrALAZINE HCL 20 MG/ML 1 ML VIAL IVP STA (16:29)
[2023-10-20] MEDS: NICOTINE 14MG/24HR PATCH TRANSDERM SCH (16:29)
[2023-10-20] MEDS: cloNIDine 0.2 MG/24HR PATCH TRANSDERM SCH (16:30)
[2023-10-20 17:19] LABS: Glucose,Whole Blood 186 mg/dL (70-110)
[2023-10-20 20:17] LABS: Glucose,Whole Blood 181 mg/dL (70-110)
[2023-10-20] MEDS: KETOROLAC 15 MG/ML 1 ML VIAL IVP PRN (22:23)
[2023-10-21 02:44] LABS: Glucose,Whole Blood 191 mg/dL (70-110)
[2023-10-21 07:25] LABS: Glucose,Whole Blood 217 mg/dL (70-110)
[2023-10-21 12:51] LABS: Glucose,Whole Blood 209 mg/dL (70-110)
--- NOTE | 2023-10-21 13:21 | P.PN ---
Subjective Patient is a 72-year-old male with a past medical history of diabetes on insulin pump, hypertension, currently everyday smoker and history of marijuana use presents to ER with complaints of intractable nausea and vomiting for the past 3 days. Patient also complaining of more secretions and nasal congestion. He was also complaining of right lower quadrant abdominal pain and firmness on admission. No prior history of colonoscopy. Denied any hematemesis or melena. Patient denies any loss of weight. Patient has been having decreased appetite for the past 6 months. No prior history of cancer. Patient had CT of the abdomen pelvis in the ER showed circumferential wall thickening of the cecum, concerning for underlying mass. Colon cancer not excluded. EKG showed sinus rhythm Laboratory data showed WBC 12.8 hemoglobin 16.4 and platelets 226 sodium 136 potassium 4.1 chloride 105 bicarb is 20 BUN 15 and creatinine 0.45 and blood sugar 357, AST 20 ALT 20 alk phos 133. 10/19/2023 Patient is currently lying in bed. Awake alert and oriented x 3. Still having vomiting and unable to tolerate oral diet. No complaints of chest pain or shor tness of breath. Patient has been afebrile. Colonoscopy could not be done today due to patient unable to take bowel prep. Laboratory showed WBC 13.8 hemoglobin 15.6 and platelets 253 sodium 139 pota ssium 3.6 chloride 108 bicarb is 21 anion gap 10. BUN 15 and creatinine 0.37 and blood sugar 154. A1c level is 13.2 10/19 Patient still has nausea vomiting, he could not tolerate the preparation for EGD and colonoscopy so it was postponed till tomorrow by surgery team We added Compazine for his treatment to help with his N/V He has mild right lower quadrant abdominal pain and fullness related to his right lower renal cecal mass, patient is aware about his mass and possibility of cancer Patient states he has no PCP as an outpatient Blood pressure slightly elevated with continued 10/21/2023 He still have abdominal pain and vomiting Toradol is working and he has pain pump. Also he is allergic to morphine. Will give him extra dose of Toradol today Compazine seems working for him and discussed with staff if continues to vomit we may switch it to another antiemetic Plan for endoscopy with EGD/colonoscopy Skippy with surgery team Increase clonidine patch to 0.3 mg and IV hydralazine Continue with normal saline hydration Discussed with staff Review of systems CONSTITUTIONAL: No fever, no malaise, no fatigue. HEENT: No recent visual problems or hearing problems. Denied any sore throat. CARDIOVASCULAR: No orthopnea, PND, no palpitations, no syncope. HEMATOLOGICAL: Denies any bleeding or petechiae. GENITOURINARY: Denies any burning micturition, frequency, or urgency. MUSCULOSKELETAL/RHEUMATOLOGICAL: Denies any joint pain, swelling, or any muscle pain. ENDOCRINE: Denies any polyuria or polydipsia. Active Medications Generic Name Dose Route Start Last Admin Trade Name Jc PRN Reason Stop Dose Admin Clonidine HCl 1 patch 10/21/23 14:00 Clonidine 0.3 Mg/24hr Patch TRANSDERM Q7D DMITRI Dextrose/Water 25 ml 10/18/23 11:25 Dextrose 50% Syringe 50 Ml IVP PER PROTOCOL PRN Hypoglycemia Protocol Dextrose/Water 50 ml 10/18/23 11:25 Dextrose 50% Syringe 50 Ml IVP PER PROTOCOL PRN Hypoglycemia Protocol Famotidine 20 mg 10/19/23 21:00 10/21/23 07:58 Famotidine 20 Mg/2 Ml Vial IV 20 mg Q12HR DMITRI Administration Heparin Sodium (Porcine) 5,000 unit 10/18/23 16:00 10/21/23 07:50 Heparin Sodium,Porcine 5,000 Unit/Ml 1 Ml Vial SQ Not Given Q8HR DMITRI Hydralazine HCl 10 mg 10/20/23 03:30 10/21/23 13:04 Hydralazine Hcl 20 Mg/Ml 1 Ml Vial IVP 10 mg Q6HR PRN Administration Blood Pressure - High Sodium Chloride 1,000 mls @ 50 mls/hr 10/20/23 10:00 10/21/23 06:32 Saline 0.9% IV 50 mls/hr .Q20H DMITRI Administration Insulin Aspart 0 unit 10/18/23 12:30 10/21/23 13:03 Insulin Aspart (Novolog) 100 Unit/Ml Vial SQ 2 unit ACHS DMITRI Administration Protocol Insulin Detemir 18 unit 10/18/23 23:45 10/20/23 20:12 Insulin Detemir (Levemir) 100 Unit/Ml Syr SQ Not Given HS DMITRI Ketorolac Tromethamine 15 mg 10/20/23 21:54 10/20/23 22:23 Ketorolac 15 Mg/Ml 1 Ml Vial IVP 10/25/23 21:54 15 mg Q6HR PRN Administration Pain Metoclopramide HCl 10 mg 10/18/23 18:00 10/21/23 11:53 Metoclopramide 5 Mg/Ml 2 Ml Vial IVP 10 mg Q6HR DMITRI Administration Miscellaneous Information 1 each 10/20/23 09:24 Potassium Replacement Protocol 1 Each [facility] MISCELLANE DAILY PRN Per Protocol Protocol Miscellaneous Information 1 each 10/20/23 09:29 Pot[facility] Replacement [facility] PRN Per Protocol Protocol Naloxone HCl 0.2 mg 10/18/23 02:32 Naloxone 0.4 Mg/Ml 1 Ml Vial IV Q2M PRN Opioid Reversal Nicotine 1 patch 10/20/23 16:15 10/21/23 07:58 Nicotine 14mg/24hr Patch TRANSDERM 1 patch DAILY DMITRI Administration Ondansetron HCl 4 mg 10/18/23 13:56 10/21/23 07:59 Ondansetron 4 Mg/2 Ml Vial IVP 4 mg Q6HR PRN Administration Nausea And Vomiting Prochlorperazine Maleate 5 mg 10/20/23 09:24 10/21/23 02:53 Prochlorperazine 5 Mg Tab PO 5 mg Q8HR PRN Administration Nausea And Vomiting Objective - Vital Signs Vital signs: Vital Signs Temp 98.5 F 10/21/23 13:01 Pulse 114 H 10/21/23 13:01 Resp 19 10/21/23 13:01 BP 181/89 10/21/23 13:01 Pulse Ox 96 10/21/23 13:01 FiO2 Intake & Output 10/20/23 10/21/23 10/21/23 18:59 06:59 18:59 Intake Total 444 Output Total 200 975 Balance 244 -975 Weight 91.626 kg Intake: Oral 444 Output: Urine 200 975 Other: Voiding Method Urinal Urinal Urinal - Exam GENERAL: The patient is alert and oriented x3, not in any acute distress. Well developed, well nourished. HEENT: Pupils are round and equally reacting to light. EOMI. No scleral icterus. No conjunctival pallor. Normocephalic, atraumatic. No pharyngeal erythema. No thyromegaly. CARDIOVASCULAR: S1 and S2 present. No murmurs, rubs, or gallops. PULMONARY: Chest is clear to auscultation, no wheezing , no crackles. -ABDOMEN: Soft, nontender, nondistended, normoactive bowel sounds. No palpable organomegaly. Mild right lower quadrant fullness MUSCULOSKELETAL: No joint swelling or deformity. EXTREMITIES: No cyanosis, clubbing, or pedal edema. NEUROLOGICAL: Gross neurological examination did not reveal any focal deficits. SKIN: No rashes. no petechiae. - Labs CBC & Chem 7: 10/20/23 06:52 10/20/23 21:18 Labs: Abnormal Lab Results - Last 24 Hours (Table) 10/20/23 10/20/23 10/20/23 Range/Units 17:17 20:14 21:18 Potassium 3.3 L (3.5-5.1) mmol/L POC Glucose (mg/dL) 186 H 181 H (70-110) mg/dL 10/21/23 10/21/23 10/21/23 Range/Units 02:41 07:17 12:44 Potassium (3.5-5.1) mmol/L POC Glucose (mg/dL) 191 H 217 H 209 H (70-110) mg/dL Assessment and Plan Assessment: Colon mass with circumferential wall thickening of the cecum as per CT abdomen pelvis. Intractable nausea and vomiting Hyperglycemia with uncontrolled diabetes on insulin pump at home. A1c 13.2 Hypertension. Hypovolemic hyponatremia/pseudohyponatremia Mild leukocytosis GI and DVT prophylaxis with Pepcid and heparin subcu Plan: Patient will be continued on IV hydration, with normal saline.. Symptomatic management for nausea and vomiting. plan for EGD/colonoscopy with surgery team today Monitor hemoglobin and electrolytes Patient was started on insulin regimen and sliding scale for better blood sugar control. Continue to follow closely. Discussed with her daughter at bedside in detail. Prognosis is guarded at this time.
[2023-10-21] MEDS: cloNIDine 0.3 MG/24HR PATCH TRANSDERM SCH (13:26)
[2023-10-21] MEDS: IV FLUID CONTINUATION 1,000 ML IV ONE ×2 (13:46→14:04)
[2023-10-21] MEDS ORDERED: fentaNYL (PF) 50 MCG/ML 2 ML AMP ONE (13:49)
[2023-10-21] MEDS ORDERED: LIDOCAINE 1% INJ 10MG/ML (20 ML MDV) ONE (13:49)
[2023-10-21] MEDS ORDERED: ONDANSETRON 4 MG/2 ML VIAL ONE (13:49)
[2023-10-21] MEDS ORDERED: ESMOLOL 100 MG/10 ML VIAL ONE (13:49)
[2023-10-21] MEDS ORDERED: PROPOFOL 10 MG/ML 20 ML VIAL IV ONE (13:49)
--- NOTE | 2023-10-21 15:16 | P.PCN ---
Date of Procedure: 10/21/23 Procedure(s) Performed: Preoperative Dx: Intractable vomiting Postoperative Dx: Mild duodenitis, mild gastritis Procedure: EGD with Bx Anesthesia: Sedation Endoscopist: Dr. Soriano Specimens: Duodenum, antrum Endoscopic Procedure: The patient was on the endoscopy table in the left decubitus position. The Olympus gastroscope was inserted into the oropharynx and passed under direct visualization to the region of the third portion of the duodenum. From that point the scope was slowly withdrawn inspecting all surfaces carefully. There was mild duodenitis noted. No ulcerations or erosions were present. Biopsies took place. The pylorus was widely patent. The stomach was carefully inspected. There was []. A biopsy of the antrum took place to rule out H. pylori. Biopsy of the body of the stomach also took place because of some gastritis with mild mucosal erythema. Retroflexion revealed a normal hiatus. The esophagus was then carefully examined. There were no neoplastic inflammatory or polypoid lesions throughout the visualized esophagus. The patient was then taken to the recovery room in stable condition per anesthesia guidelines. Recommendations: Etiology for intractable vomiting not evident on today's study. Continue antiacids. Will order CT brain given the patient's ongoing nausea issues.
[2023-10-21] MEDS: POTASSIUM CHLORIDE ER 20 MEQ TAB.ER PO SCH (15:27)
[2023-10-21 17:06] LABS: Glucose,Whole Blood 191 mg/dL (70-110)
--- NOTE | 2023-10-21 17:51 | CT ---
EXAMINATION TYPE: CT brain wo/w con DATE OF EXAM: 10/21/2023 COMPARISON: None INDICATION: nausea and vomiting DLP: 2254.2 mGycm, Automated exposure control for dose reduction was used. CONTRAST: None CT of the brain is performed utilizing 3 mm thick sections through the posterior fossa and 3 mm thick sections through the remaining calvarium. Study is performed within 24 hours of arrival to the hosp ital. No abnormal hyperdensity is present to suggest an acute intracranial hemorrhage. No mass lesion is evident. No acute infarcts are evident. There is mild periventricular white matter hypodensity, likely on the basis of chronic white matter ischemic changes. Ventricles and sulci are prominent for the patient age. Paranasal sinuses and mastoid air cells within the [id number] are clear. IMPRESSION: 1. No acute intracranial process. Follow-up MRI can be performed as clinically indicated. 2. Mild atrophy with mild chronic appearing periventricular white matter ischemic type changes. 3. No suspicious enhancement
[2023-10-21 20:12] LABS: Glucose,Whole Blood 175 mg/dL (70-110)
[2023-10-22 01:28] LABS: Glucose,Whole Blood 212 mg/dL (70-110)
[2023-10-22 08:32] LABS: Basophils # (A) 0.06 X 10*3/uL (0.00-0.10); Basophils % (A) 0.5 %; Eosinophils # (A) 0 X 10*3/uL (0.04-0.35); Eosinophils % (A) 0 %; HCT 37.8 % (39.6-50.0); HGB 13.1 g/dL (13.0-17.0); MCH 30.8 pg (27.0-32.0); MCHC 34.7 g/dL (32.0-37.0); MCV 88.7 FL (80.0-97.0); Mean Platelet Volume 9.6 FL (9.5-12.2); Monocytes # (A) 1.26 X 10*3/uL (0.20-1.00); Monocytes % (A) 10.2 %; NRBC Per 100 WBC 0 X 10*3/uL (0.00-0.01); Neutrophils # (A) 9.07 X 10*3/uL (1.80-7.70); Neutrophils % (A) 73.4 %; Platelet Count 226 X 10*3/uL (140-440); RBC 4.26 X 10*6/uL (4.40-5.60); RDW 13.8 % (11.5-14.5); WBC 12.35 X 10*3/uL (4.50-10.00)
[2023-10-22 08:40] LABS: BUN/Creat Ratio 19.67 Ratio (12.00-20.00); Blood Urea Nitrogen 11.8 mg/dL (9.0-27.0); Calcium 8.2 mg/dL (8.7-10.3); Carbon Dioxide 14.3 mmol/L (21.6-31.8); Chloride 107 mmol/L (96-109); Glucose 243 mg/dL (70-110); Magnesium 1.9 mg/dL (1.5-2.4); Potassium 3.2 mmol/L (3.5-5.5); Sodium 136 mmol/L (135-145)
[2023-10-22 09:29] LABS: Glucose,Whole Blood 189 mg/dL (70-110)
--- NOTE | 2023-10-22 12:03 | NM ---
EXAMINATION TYPE: NM hepatobiliary wo EF DATE OF EXAM: 10/22/2023 11:30 AM COMPARISON: CT abdomen pelvis most recent from 10/18/2023. CLINICAL INDICATION:Male, 73 years old with history of vomiting; TECHNIQUE: The patient was given 5.2 mCi of Technetium 99m-Mebrofenin as a radiotracer and multiple scintigraphic images were obtained of the abdomen. FINDINGS: Normal uptake of radiotracer was identified within the liver with excretion into the hepatic and comm on biliary ducts within 30 minutes. There was normal progressive washout of the liver over the course of the study. Radiotracer uptake within the gallbladder at 30 minutes as well as small bowel activit y was identified at 4 minutes. IMPRESSION: 1. Normal hepatobiliary scan.
[2023-10-22 12:14] LABS: Glucose,Whole Blood 196 mg/dL (70-110)
--- NOTE | 2023-10-22 13:07 | P.PN ---
Subjective Progress Note Date: 10/22/23 Principal diagnosis: Intractable vomiting Patient having dry heaves over night and again this morning. His HIDA scan shows patency of the cystic duct. Mild abdominal discomfort. Mostly lower abdomen. Afebrile. Objective - Vital Signs Vital signs: Vital Signs Temp 98.6 F 10/22/23 08:00 Pulse 108 H 10/22/23 08:00 Resp 18 10/22/23 08:00 BP 196/92 10/22/23 08:00 Pulse Ox 98 10/22/23 08:00 FiO2 Intake & Output 10/21/23 10/22/23 10/22/23 18:59 06:59 18:59 Intake Total 740 Output Total 500 700 Balance 240 -700 Weight 91.626 kg Intake: IV 200 Oral 540 Output: Urine 500 700 Other: Voiding Method Urinal Urinal Urinal # Bowel Movements 1 - Exam Abdomen: Soft, nontender, nondistended - Labs CBC & Chem 7: 10/22/23 03:58 10/22/23 03:58 Labs: Abnormal Lab Results - Last 24 Hours (Table) 10/21/23 10/21/23 10/21/23 Range/Units 17:03 19:49 20:11 WBC (4.50-10.00) X 10*3/uL RBC (4.40-5.60) X 10*6/uL Hct (39.6-50.0) % Immature Gran # (0.00-0.04) X 10*3/uL Neutrophils # (1.80-7.70) X 10*3/uL Monocytes # (0.20-1.00) X 10*3/uL Eosinophils # (0.04-0.35) X 10*3/uL Potassium 3.2 L (3.5-5.1) mmol/L Carbon Dioxide (21.6-31.8) mmol/L Anion Gap (4.00-12.00) mmol/L Glucose (70-110) mg/dL POC Glucose (mg/dL) 191 H 175 H (70-110) mg/dL Calcium (8.7-10.3) mg/dL 10/22/23 10/22/23 10/22/23 Range/Units 01:27 03:58 03:58 WBC 12.35 H (4.50-10.00) X 10*3/uL RBC 4.26 L (4.40-5.60) X 10*6/uL Hct 37.8 L (39.6-50.0) % Immature Gran # 0.36 H (0.00-0.04) X 10*3/uL Neutrophils # 9.07 H (1.80-7.70) X 10*3/uL Monocytes # 1.26 H (0.20-1.00) X 10*3/uL Eosinophils # 0 L (0.04-0.35) X 10*3/uL Potassium 3.2 L (3.5-5.1) mmol/L Carbon Dioxide 14.3 L (21.6-31.8) mmol/L Anion Gap 14.70 H (4.00-12.00) mmol/L Glucose 243 H (70-110) mg/dL POC Glucose (mg/dL) 212 H (70-110) mg/dL Calcium 8.2 L (8.7-10.3) mg/dL 10/22/23 10/22/23 Range/Units 09:26 11:57 WBC (4.50-10.00) X 10*3/uL RBC (4.40-5.60) X 10*6/uL Hct (39.6-50.0) % Immature Gran # (0.00-0.04) X 10*3/uL Neutrophils # (1.80-7.70) X 10*3/uL Monocytes # (0.20-1.00) X 10*3/uL Eosinophils # (0.04-0.35) X 10*3/uL Potassium (3.5-5.1) mmol/L Carbon Dioxide (21.6-31.8) mmol/L Anion Gap (4.00-12.00) mmol/L Glucose (70-110) mg/dL POC Glucose (mg/dL) 189 H 196 H (70-110) mg/dL Calcium (8.7-10.3) mg/dL Assessment and Plan (1) Intractable vomiting Narrative/Plan: 73-year-old male with intractable vomiting. Patient with CAT scan showing quest ionable thickening of the cecal base. Patient with known gallstones. Etiology for ongoing vomiting unclear. Do not believe this is related to obstruction given the CAT scan and flat plate bowel pattern. Upper endoscopy showing gastritis and duodenitis. Continue antiacids. Consider gastric emptying study to evaluate for gastroparesis. Consider GI consult if vomiting persists. Patient's patient's vomiting improved would still recommend bowel prep and colonoscopy. Current Visit: Yes Status: Acute Code(s): R11.10 - VOMITING, UNSPECIFIED SNOMED Code(s): 502441176
[2023-10-22 17:17] LABS: Glucose,Whole Blood 240 mg/dL (70-110)
[2023-10-22 20:11] LABS: Glucose,Whole Blood 193 mg/dL (70-110)
[2023-10-23] MEDS: POTASSIUM CHLORIDE 10 MEQ in WATER FOR INJECTION 1 100ML.BAG IVPB SCH (01:02)
[2023-10-23 01:38] LABS: Glucose,Whole Blood 186 mg/dL (70-110)
[2023-10-23] MEDS: POTASSIUM CHLORIDE ER 20 MEQ TAB.ER PO SCH ×4 (01:56→21:32)
[2023-10-23 07:23] LABS: African American GFR (CKD) >90 (>60 ml/min/1.73 sqM); Anion Gap 8 mmol/L; Blood Urea Nitrogen 8 mg/dL (9-20); Calcium 8.7 mg/dL (8.4-10.2); Carbon Dioxide 19 mmol/L (22-30); Chloride 107 mmol/L (98-107); Glucose 169 mg/dL (74-99); Non-African American GFR(CKD) >90 (>60 ml/min/1.73 sqM); Sodium 134 mmol/L (137-145)
[2023-10-23 07:31] LABS: Glucose,Whole Blood 178 mg/dL (70-110)
[2023-10-23] MEDS ORDERED: Potassium Replacement Protocol 1 EACH MISC MISCELLANE PRN ×2 (09:38→15:33)
[2023-10-23 12:24] LABS: Glucose,Whole Blood 242 mg/dL (70-110)
--- NOTE | 2023-10-23 16:11 | P.PN ---
Progress Note - Text Progress Note Date: 10/23/23 CHIEF COMPLAINT: Intractable Nausea and Vomiting HISTORY OF PRESENT ILLNESS: Patient still having nausea and vomiting. PHYSICAL EXAM: VITAL SIGNS: Reviewed. GENERAL: Well-developed in no acute distress. ABDOMEN: Soft. Mildly distended, mild diffuse TTP NEUROLOGIC: Alert and oriented. Cranial nerves II through XII grossly intact. ASSESSMENT: 1. Circumferential wall thickening of the cecum with concerns of underlying mass noted on CT 2. Nausea and vomiting 3. Hypertension PLAN: -Gastric Emptying study ordered -Continue CLD -Nausea Control -Will consider colonoscopy once vomiting controlled
--- NOTE | 2023-10-23 17:01 | P.PN ---
Subjective Progress Note Date: 10/22/23 72-year-old male with a past medical history of diabetes on insulin pump, hypertension, currently everyday smoker and history of marijuana use presents to ER with complaints of intractable nausea and vomiting for the past 3 days. Patient also complaining of more secretions and nasal congestion. He was also complaining of right lower quadrant abdominal pain and firmness on admission. No prior history of colonoscopy. Denied any hematemesis or melena. Patient denies any loss of weight. Patient has been having decreased appetite for the past 6 months. No prior history of cancer. Patient had CT of the abdomen pelvis in the ER showed circumferential wall thickening of the cecum, concerning for underlying mass. Colon cancer not excluded. EKG showed sinus rhythm Laboratory data showed WBC 12.8 hemoglobin 16.4 and platelets 226 sodium 136 potassium 4.1 chloride 105 bicarb is 20 BUN 15 and creatinine 0.45 and blood sugar 357, AST 20 ALT 20 alk phos 133. Objective - Vital Signs Vital signs: Vital Signs Temp 98.1 F 10/22/23 13:05 Pulse 93 10/22/23 13:05 Resp 16 10/22/23 13:05 BP 180/81 10/22/23 13:05 Pulse Ox 98 10/22/23 13:05 FiO2 Intake & Output 10/21/23 10/22/23 10/22/23 18:59 06:59 18:59 Intake Total 740 Output Total 500 700 Balance 240 -700 Weight 91.626 kg Intake: IV 200 Oral 540 Output: Urine 500 700 Other: Voiding Method Urinal Urinal Urinal # Bowel Movements 1 - Exam GENERAL: The patient is alert and oriented x3, not in any acute distress. Well developed, well nourished. HEENT: Pupils are round and equally reacting to light. EOMI. No scleral icterus. No conjunctival pallor. Normocephalic, atraumatic. No pharyngeal erythema. No thyromegaly. CARDIOVASCULAR: S1 and S2 present. No murmurs, rubs, or gallops. PULMONARY: Chest is clear to auscultation, no wheezing , no crackles. -ABDOMEN: Soft, nontender, nondistended, normoactive bowel sounds. No palpable organomegaly. Mild right lower quadrant fullness MUSCULOSKELETAL: No joint swelling or deformity. EXTREMITIES: No cyanosis, clubbing, or pedal edema. NEUROLOGICAL: Gross neurological examination did not reveal any focal deficits. SKIN: No rashes. no petechiae. - Labs CBC & Chem 7: 10/22/23 03:58 10/23/23 14:39 Labs: Abnormal Lab Results - Last 24 Hours (Table) 10/21/23 10/21/23 10/21/23 Range/Units 17:03 19:49 20:11 WBC (4.50-10.00) X 10*3/uL RBC (4.40-5.60) X 10*6/uL Hct (39.6-50.0) % Immature Gran # (0.00-0.04) X 10*3/uL Neutrophils # (1.80-7.70) X 10*3/uL Monocytes # (0.20-1.00) X 10*3/uL Eosinophils # (0.04-0.35) X 10*3/uL Potassium 3.2 L (3.5-5.1) mmol/L Carbon Dioxide (21.6-31.8) mmol/L Anion Gap (4.00-12.00) mmol/L Glucose (70-110) mg/dL POC Glucose (mg/dL) 191 H 175 H (70-110) mg/dL Calcium (8.7-10.3) mg/dL 10/22/23 10/22/23 10/22/23 Range/Units 01:27 03:58 03:58 WBC 12.35 H (4.50-10.00) X 10*3/uL RBC 4.26 L (4.40-5.60) X 10*6/uL Hct 37.8 L (39.6-50.0) % Immature Gran # 0.36 H (0.00-0.04) X 10*3/uL Neutrophils # 9.07 H (1.80-7.70) X 10*3/uL Monocytes # 1.26 H (0.20-1.00) X 10*3/uL Eosinophils # 0 L (0.04-0.35) X 10*3/uL Potassium 3.2 L (3.5-5.1) mmol/L Carbon Dioxide 14.3 L (21.6-31.8) mmol/L Anion Gap 14.70 H (4.00-12.00) mmol/L Glucose 243 H (70-110) mg/dL POC Glucose (mg/dL) 212 H (70-110) mg/dL Calcium 8.2 L (8.7-10.3) mg/dL 10/22/23 10/22/23 Range/Units 09:26 11:57 WBC (4.50-10.00) X 10*3/uL RBC (4.40-5.60) X 10*6/uL Hct (39.6-50.0) % Immature Gran # (0.00-0.04) X 10*3/uL Neutrophils # (1.80-7.70) X 10*3/uL Monocytes # (0.20-1.00) X 10*3/uL Eosinophils # (0.04-0.35) X 10*3/uL Potassium (3.5-5.1) mmol/L Carbon Dioxide (21.6-31.8) mmol/L Anion Gap (4.00-12.00) mmol/L Glucose (70-110) mg/dL POC Glucose (mg/dL) 189 H 196 H (70-110) mg/dL Calcium (8.7-10.3) mg/dL Assessment and Plan Assessment: Colon mass with circumferential wall thickening of the cecum as per CT abdomen pelvis. Intractable nausea and vomiting Hyperglycemia with uncontrolled diabetes on insulin pump at home. A1c 13.2 Hypertension. Hypovolemic hyponatremia/pseudohyponatremia Mild leukocytosis GI and DVT prophylaxis with Pepcid and heparin subcu Plan: Patient will be continued on IV hydration, with normal saline.. Symptomatic management for nausea and vomiting. plan for EGD/colonoscopy with surgery team today Monitor hemoglobin and electrolytes Patient was started on insulin regimen and sliding scale for better blood sugar control. Continue to follow closely. Discussed with her daughter at bedside in detail. Prognosis is guarded at this time.
--- NOTE | 2023-10-23 17:04 | P.PN ---
Subjective Progress Note Date: 10/23/23 72-year-old male with a past medical history of diabetes on insulin pump, hypertension, currently everyday smoker and history of marijuana use presents to ER with complaints of intractable nausea and vomiting for the past 3 days. Patient also complaining of more secretions and nasal congestion. He was also complaining of right lower quadrant abdominal pain and firmness on admission. No prior history of colonoscopy. Denied any hematemesis or melena. Patient denies any loss of weight. Patient has been having decreased appetite for the past 6 months. No prior history of cancer. Patient had CT of the abdomen pelvis in the ER showed circumferential wall thickening of the cecum, concerning for underlying mass. Colon cancer not excluded. EKG showed sinus rhythm Laboratory data showed WBC 12.8 hemoglobin 16.4 and platelets 226 sodium 136 potassium 4.1 chloride 105 bicarb is 20 BUN 15 and creatinine 0.45 and blood sugar 357, AST 20 ALT 20 alk phos 133. 10/23/2023 Patient is seen and evaluated resting in bed; reports slight improvement; was able to keep clear liquids down Vital signs are reviewed; pressure continuing to trend up; she has not been able to tolerate any oral antihypertensive medications Labs are reviewed and remained stable -Patient had circumferential wall thickening of the cecum with concern for underlying mass on CT of the abdomen completed on admission; general surgery on board and planning to consider colonoscopy once patient is clinically stable --Given persistent nausea and vomiting, gastric emptying study is ordered which cannot be completed until patient is off of antibiotic therapy -- Patient is currently on a clear liquid diet and is able to tolerate Objective - Vital Signs Vital signs: Vital Signs Temp 99 F 10/23/23 07:42 Pulse 107 H 10/23/23 07:42 Resp 17 10/23/23 07:42 BP 172/79 10/23/23 07:42 Pulse Ox 96 10/23/23 07:42 FiO2 Intake & Output 10/22/23 10/23/23 10/23/23 18:59 06:59 18:59 Intake Total 240 600 Output Total 600 Balance -360 600 Weight 91.626 kg Intake: Intake, IV Titration 600 Amount Sodium Chloride 0.9% 1, 600 000 ml @ 50 mls/hr IV . Q20H [facility] Rx#:[id number] Oral 240 Output: Urine 600 Other: Voiding Method Urinal Urinal - Exam GENERAL: The patient is alert and oriented x3, not in any acute distress. Well developed, well nourished. HEENT: Pupils are round and equally reacting to light. EOMI. No scleral icterus. No conjunctival pallor. Normocephalic, atraumatic. No pharyngeal erythema. No thyromegaly. CARDIOVASCULAR: S1 and S2 present. No murmurs, rubs, or gallops. PULMONARY: Chest is clear to auscultation, no wheezing , no crackles. -ABDOMEN: Soft, nontender, nondistended, normoactive bowel sounds. No palpable organomegaly. Mild right lower quadrant fullness MUSCULOSKELETAL: No joint swelling or deformity. EXTREMITIES: No cyanosis, clubbing, or pedal edema. NEUROLOGICAL: Gross neurological examination did not reveal any focal deficits. SKIN: No rashes. no petechiae. - Labs CBC & Chem 7: 10/22/23 03:58 10/23/23 14:39 Labs: Abnormal Lab Results - Last 24 Hours (Table) 10/22/23 10/22/23 10/23/23 Range/Units 17:16 20:09 01:29 Sodium (137-145) mmol/L Potassium (3.5-5.1) mmol/L Carbon Dioxide (22-30) mmol/L BUN (9-20) mg/dL Creatinine (0.66-1.25) mg/dL Glucose (74-99) mg/dL POC Glucose (mg/dL) 240 H 193 H 186 H (70-110) mg/dL 10/23/23 10/23/23 10/23/23 Range/Units 05:55 07: 12:21 Sodium 134 L (137-145) mmol/L Potassium 3.0 L (3.5-5.1) mmol/L Carbon Dioxide 19 L (22-30) mmol/L BUN 8 L (9-20) mg/dL Creatinine 0.36 L (0.66-1.25) mg/dL Glucose 169 H (74-99) mg/dL POC Glucose (mg/dL) 178 H 242 H (70-110) mg/dL Assessment and Plan Assessment: Colon mass with circumferential wall thickening of the cecum as per CT abdomen pelvis. Intractable nausea and vomiting Hyperglycemia with uncontrolled diabetes on insulin pump at home. A1c 13.2 Hypertension. Hypovolemic hyponatremia/pseudohyponatremia Mild leukocytosis GI and DVT prophylaxis with Pepcid and heparin subcu Plan: Patient will be continued on IV hydration, with normal saline.. Symptomatic management for nausea and vomiting. plan for EGD/colonoscopy with surgery team today Monitor hemoglobin and electrolytes Patient was started on insulin regimen and sliding scale for better blood sugar control. Continue to follow closely. Discussed with her daughter at bedside in detail. Prognosis is guarded at this time.
[2023-10-23 17:17] LABS: Glucose,Whole Blood 191 mg/dL (70-110)
[2023-10-23] MEDS: hydrALAZINE HCL 20 MG/ML 1 ML VIAL IVP STA (17:40)
[2023-10-23] MEDS: cloNIDine 0.3 MG/24HR PATCH TRANSDERM SCH (17:40)
[2023-10-23 20:22] LABS: Glucose,Whole Blood 180 mg/dL (70-110)
[2023-10-24 01:31] LABS: Glucose,Whole Blood 158 mg/dL (70-110)
[2023-10-24] MEDS: POTASSIUM CHLORIDE ER 20 MEQ TAB.ER PO SCH ×3 (04:11→17:24)
[2023-10-24 07:04] LABS: Glucose,Whole Blood 140 mg/dL (70-110)
--- NOTE | 2023-10-24 10:29 | P.PN ---
Subjective Progress Note Date: 10/24/23 Patient still has complaints of nausea. On exam vital signs appear stable. Abdomen is soft. Patient is scheduled for gastric emptying study in the a.m. Objective - Vital Signs Vital signs: Vital Signs Temp 99 F 10/24/23 08:00 Pulse 84 10/24/23 08:00 Resp 17 10/24/23 08:00 BP 187/90 10/24/23 08:00 Pulse Ox 98 10/24/23 08:00 FiO2 Intake & Output 10/23/23 10/24/23 10/24/23 18:59 06:59 18:59 Intake Total 570 2860 Output Total 600 1350 Balance -30 1510 Intake: Intake, IV Titration 600 Amount Sodium Chloride 0.9% 1, 600 000 ml @ 50 mls/hr IV . Q20H [facility] Rx#:[id number] Oral 570 2260 Output: Gastric Drainage 0 Urine 600 1350 Emesis 0 Oral Regurgitation 0 Other: Voiding Method Urinal # Bowel Movements 0 - Labs CBC & Chem 7: 10/22/23 03:58 10/24/23 03:21 Labs: Abnormal Lab Results - Last 24 Hours (Table) 10/23/23 10/23/23 10/23/23 Range/Units 12:21 14:39 17:14 Potassium 3.0 L (3.5-5.1) mmol/L POC Glucose (mg/dL) 242 H 191 H (70-110) mg/dL 10/23/23 10/23/23 10/24/23 Range/Units 20:01 20:20 01:30 Potassium 3.2 L (3.5-5.1) mmol/L POC Glucose (mg/dL) 180 H 158 H (70-110) mg/dL 10/24/23 10/24/23 Range/Units 03:21 07:00 Potassium 2.9 L (3.5-5.1) mmol/L POC Glucose (mg/dL) 140 H (70-110) mg/dL
[2023-10-24] MEDS: POTASSIUM CHLORIDE 20 MEQ in WATER FOR INJECTION 1 100ML.BAG IVPB STA (11:59)
[2023-10-24 12:32] LABS: Glucose,Whole Blood 168 mg/dL (70-110)
[2023-10-24] MEDS ORDERED: Potassium Replacement Protocol 1 EACH MISC MISCELLANE PRN ×2 (12:47→17:01)
--- NOTE | 2023-10-24 15:38 | P.PN ---
Subjective Progress Note Date: 10/24/23 72-year-old male with a past medical history of diabetes on insulin pump, hypertension, currently everyday smoker and history of marijuana use presents to ER with complaints of intractable nausea and vomiting for the past 3 days. Patient also complaining of more secretions and nasal congestion. He was also complaining of right lower quadrant abdominal pain and firmness on admission. No prior history of colonoscopy. Denied any hematemesis or melena. Patient denies any loss of weight. Patient has been having decreased appetite for the past 6 months. No prior history of cancer. Patient had CT of the abdomen pelvis in the ER showed circumferential wall thickening of the cecum, concerning for underlying mass. Colon cancer not excluded. EKG showed sinus rhythm Laboratory data showed WBC 12.8 hemoglobin 16.4 and platelets 226 sodium 136 potassium 4.1 chloride 105 bicarb is 20 BUN 15 and creatinine 0.45 and blood sugar 357, AST 20 ALT 20 alk phos 133. 10/23/2023 Patient is seen and evaluated resting in bed; reports slight improvement; was able to keep clear liquids down Vital signs are reviewed; pressure continuing to trend up; she has not been able to tolerate any oral antihypertensive medications Labs are reviewed and remained stable -Patient had circumferential wall thickening of the cecum with concern for underlying mass on CT of the abdomen completed on admission; general surgery on board and planning to consider colonoscopy once patient is clinically stable --Given persistent nausea and vomiting, gastric emptying study is ordered which cannot be completed until patient is off of antibiotic therapy -- Patient is currently on a clear liquid diet and is able to tolerate 10/24/2023 Patient is seen and evaluated sitting up in bed; does not seem to be in any acute distress; continues to report nausea and vomiting; family members at bedside and have multiple questions regarding this patient condition and further plan of action -It is status post EGD which revealed gastritis; general surgery on board and recommending colonoscopy once patient is more stable -- Given persistent nausea and vomiting, general surgery recommended gastric emptying study which has been ordered and will be completed tomorrow morning -- I did discuss with patient and family possibility of transfer to another facility for GI evaluation and input if patient continues to have intractable nausea and vomiting and gastric emptying study is unremarkable -Patient and family are agreeable to this plan of care Objective - Vital Signs Vital signs: Vital Signs Temp 99 F 10/24/23 08:00 Pulse 84 10/24/23 08:00 Resp 17 10/24/23 08:00 BP 187/90 10/24/23 08:00 Pulse Ox 98 10/24/23 08:00 FiO2 Intake & Output 10/23/23 10/24/23 10/24/23 18:59 06:59 18:59 Intake Total 570 2860 Output Total 600 1350 Balance -30 1510 Intake: Intake, IV Titration 600 Amount Sodium Chloride 0.9% 1, 600 000 ml @ 50 mls/hr IV . Q20H [facility] Rx#:[id number] Oral 570 2260 Output: Gastric Drainage 0 Urine 600 1350 Emesis 0 Oral Regurgitation 0 Other: Voiding Method Urinal # Bowel Movements 0 - Exam GENERAL: The patient is alert and oriented x3, not in any acute distress. Well developed, well nourished. HEENT: Pupils are round and equally reacting to light. EOMI. No scleral icterus. No conjunctival pallor. Normocephalic, atraumatic. No pharyngeal erythema. No t hyromegaly. CARDIOVASCULAR: S1 and S2 present. No murmurs, rubs, or gallops. PULMONARY: Chest is clear to auscultation, no wheezing , no crackles. -ABDOMEN: Soft, nontender, nondistended, normoactive bowel sounds. No palpable organomegaly. Mild right lower quadrant fullness MUSCULOSKELETAL: No joint swelling or deformity. EXTREMITIES: No cyanosis, clubbing, or pedal edema. NEUROLOGICAL: Gross neurological examination did not reveal any focal deficits. SKIN: No rashes. no petechiae. - Labs CBC & Chem 7: 10/22/23 03:58 10/24/23 12:15 Labs: Abnormal Lab Results - Last 24 Hours (Table) 10/23/23 10/23/23 10/23/23 Range/Units 12:21 14:39 17:14 Potassium 3.0 L (3.5-5.1) mmol/L POC Glucose (mg/dL) 242 H 191 H (70-110) mg/dL 10/23/23 10/23/23 10/24/23 Range/Units 20:01 20:20 01:30 Potassium 3.2 L (3.5-5.1) mmol/L POC Glucose (mg/dL) 180 H 158 H (70-110) mg/dL 10/24/23 10/24/23 Range/Units 03:21 07:00 Potassium 2.9 L (3.5-5.1) mmol/L POC Glucose (mg/dL) 140 H (70-110) mg/dL Assessment and Plan Assessment: Colon mass with circumferential wall thickening of the cecum as per CT abdomen pelvis. Intractable nausea and vomiting Hyperglycemia with uncontrolled diabetes on insulin pump at home. A1c 13.2 Hypertension. Hypovolemic hyponatremia/pseudohyponatremia Mild leukocytosis GI and DVT prophylaxis with Pepcid and heparin subcu Plan: Patient will be continued on IV hydration, with normal saline.. Symptomatic management for nausea and vomiting. plan for EGD/colonoscopy with surgery team today Monitor hemoglobin and electrolytes Patient was started on insulin regimen and sliding scale for better blood sugar control. Continue to follow closely. Discussed with her daughter at bedside in detail. Prognosis is guarded at this time.
[2023-10-24 17:10] LABS: Glucose,Whole Blood 174 mg/dL (70-110)
[2023-10-24 20:12] LABS: Glucose,Whole Blood 158 mg/dL (70-110)
[2023-10-25 01:22] LABS: Glucose,Whole Blood 127 mg/dL (70-110)
[2023-10-25] MEDS ORDERED: Potassium Replacement Protocol 1 EACH MISC MISCELLANE PRN ×2 (03:45→10:31)
[2023-10-25] MEDS: POTASSIUM CHLORIDE ER 20 MEQ TAB.ER PO SCH ×2 (03:55→10:48)
[2023-10-25 07:26] LABS: Glucose,Whole Blood 114 mg/dL (70-110)
[2023-10-25 12:40] LABS: Glucose,Whole Blood 167 mg/dL (70-110)
[2023-10-25 13:18] VITALS: BP 182/77; PULSE 80; RESP 19; TEMP 98.5
--- NOTE | 2023-10-25 15:54 | P.PN ---
Subjective Progress Note Date: 10/25/23 CHIEF COMPLAINT: Nausea and vomiting HISTORY OF PRESENT ILLNESS: Patient reports that he had large bowel movements that started yesterday and since then his vomiting and pain have improved. Afebrile. Potassium 3.3. Patient scheduled for gastric emptying scan. Reglan was just discontinued today. Patient has to be off of motility medications prior to gastric emptying scan. HIDA scan normal. Patient tolerating full liquid diet. PHYSICAL EXAM: VITAL SIGNS: Reviewed. GENERAL: Well-developed in no acute distress. ABDOMEN: Soft. Nondistended. NEUROLOGIC: Alert and oriented. Cranial nerves II through XII grossly intact. ASSESSMENT: 1. Circumferential wall thickening of the cecum with concerns of underlying mass noted on CT 2. Nausea and vomiting. Patient's status post EGD revealing duodenitis and gastritis 3. Hypertension PLAN: -Recommend colonoscopy for evaluation of the wall thickening of the cecum noted on CT. Patient has refused colonoscopy. -Patient can be discharged from surgical standpoint Physician Marketing Operations Intern note has been reviewed by physician. Signing provider agrees with the documented findings, assessment, and plan of care. Objective - Vital Signs Vital signs: Vital Signs Temp 99 F 10/25/23 07:41 Pulse 86 10/25/23 07:41 Resp 17 10/25/23 07:41 BP 174/84 10/25/23 07:41 Pulse Ox 94 L 10/25/23 07:41 FiO2 Intake & Output 10/24/23 10/25/23 10/25/23 18:59 06:59 18:59 Intake Total 780 Output Total 900 350 Balance -120 -350 Weight 91.626 kg Intake: Oral 780 Output: Urine 900 350 Other: Voiding Method Urinal # Bowel Movements 1 - Labs CBC & Chem 7: 10/22/23 03:58 10/25/23 14:31 Labs: Abnormal Lab Results - Last 24 Hours (Table) 10/24/23 10/24/23 10/24/23 Range/Units 12:15 14:00 16:10 Potassium 3.1 L 3.2 L (3.5-5.1) mmol/L POC Glucose (mg/dL) (70-110) mg/dL Stool Lactoferrin Positive A (Negative) 10/24/23 10/24/23 10/25/23 Range/Units 17:05 20:10 01:20 Potassium (3.5-5.1) mmol/L POC Glucose (mg/dL) 174 H 158 H 127 H (70-110) mg/dL Stool Lactoferrin (Negative) 10/25/23 10/25/23 Range/Units 07:08 07:42 Potassium 3.3 L (3.5-5.1) mmol/L POC Glucose (mg/dL) 114 H (70-110) mg/dL Stool Lactoferrin (Negative)
[2023-10-25 17:22] LABS: Glucose,Whole Blood 175 mg/dL (70-110)
--- NOTE | 2023-10-27 10:11 | CDI ---
Documentation Clarification Form Date: 10/27/23 From: Clarissa Joshi Admit Date: 10/18/2023 02:32:00 AM Patient Name: Eleazar Rojas Visit Number: [id number] Discharge Date: 10/25/2023 07:22:00 PM ATTENTION: The Clinical Documentation Specialists (CDI) and [facility] Coding Staff appreciate your assistance in clarifying documentation. Please respond to the clarification below the line at the bottom and electronically sign. The CDI & [facility] Coding staff will review the response and follow-up if needed. Please note: Queries are made part of the Legal Health Record. If you have any questions, please contact the author of this message via ITS. Doctor Dutch Ramires, The patients principal diagnosis the diagnosis that was chiefly responsible for the admission - has not been clearly identified and clarification is requested. The patient presented with the following intractable nausea and vomiting. History/Risk factors: hyponatremia, T2DM w hyperglycemia, HTN Clinical Indicators: Patient is a 72-year-old male with a past medical history ofdiabeteson insulin pump,hypertension, currentlyeveryday smokerand history ofmarijuana use presents to ER with complaints ofintractable nausea and vomitingfor the past 3 days. Lab findings: Na 136, Glucose 346, alkaline phosphatase 133, WBC 12.8. neutrophils 10.0 Radiology findings: Cholelithiasis, normal hepatobiliary scan, EGD w bx Vital Signs: T 98.3, P 71, R 18, BP 193/96, 02 97 Treatment: Patient declined colonoscopy, lactulose, Protonix, Miralax, hydralazine In your professional opinion, can you please clarify which diagnosis, after study, was the reason chiefly responsible for the admission? [ ] Intractable nausea and vomiting [ ] Intractable nausea and vomiting due to cannabis [ ] Duodenitis [x ] Gastritis [ ] Other, please specify [ ] Unable to determine MTDD
--- NOTE | 2023-10-28 06:27 | P.DS ---
Providers Date of admission: 10/18/23 02:32 Expected date of discharge: 10/25/23 Attending physician: Dutch Ramires Consults: 10/18/23 02:32 Consult Physician Routine Consulting Provider: Elijah Soriano Consult Reason/Comments: abnormal CT, colonic mass? Do you want consulting provider notified?: Yes Primary care physician: Stated None Hospital Course: Final diagnosis Colon mass with circumferential wall thickening of the cecum as per CT abdomen pelvis. Patient is refusing colonoscopy Intractable nausea and vomiting, status post EGD likely gastritis, resolved Hyperglycemia with uncontrolled diabetes on insulin pump at home. A1c 13.2 Hypertension. Hypovolemic hyponatremia/pseudohyponatremia Mild leukocytosis GI and DVT prophylaxis with Pepcid and heparin subcu Discharge disposition Patient is being discharged in a stable condition with guarded prognosis to home. Patient will follow-up with Dr. Betito Ramires in the outpatient setting upon discharge. Patient is to continue with current bowel regimen. Patient follow-up with general surgery as scheduled. Total time taken is greater than 35 minutes. Hospital course This is a 73-year-old male who was recently admitted with severe abdominal pain with intractable nausea and vomiting with concerns of a colon mass on CT. Patient evaluated by general surgery underwent EGD showing gastritis. Recommending colonoscopy although patient is refusing. Patient reports he had an extremely large bowel movement today and feels immensely improved. Patient continues with some abdominal tenderness although nothing substantial and would like to go home. Patient being resumed on diet and tolerating recommending outpatient follow-up with primary care provider as well as general surgery. Colonoscopy and the need for further evaluation of this concerns of wall thickening and mass in the cecum although patient is refusing time. Please refer to other consultation notes for further HPI. Currently no reports of chest pain, shortness of breath, or palpitations. Patient is afebrile. No reports of nausea or vomiting and patient is tolerating diet. Patient will be discharged home today. Guarded prognosis and extremely high risk for readmissions given patient's significant comorbidities and noncompliance. Physical exam: Gen: This is a 73-year-old male who is awake, alert and oriented x 3, well-developed, elderly appearing HEENT: Head is atraumatic, normocephalic. Pupils equal, round. Sclerae is anicteric. NECK: Supple. No JVD. No lymphadenopathy. No thyromegaly. LUNGS: Diminished breath sounds bilaterally otherwise clear to auscultation. No wheezes or rhonchi. No intercostal retractions. HEART: S1, S2 are muffled ABDOMEN: Soft. Bowel sounds are present. No masses. Mild tenderness noted on pa lpation. EXTREMITIES: No pedal edema. No calf tenderness. NEUROLOGICAL: Patient is awake, alert and oriented x3. Cranial nerves 2 through 12 are grossly intact. Please refer to medication reconciliation sheet for a list of medications. The impression and plan of care has been dictated by Pepper Lobato, Nurse Practitioner as directed. Dr. Katerine MD I have performed a history and examination and MDM of this patient, discussed the same with the dictator, and agree with the dictator's assessment and plan as written ,documented as a scribe. Based on total visit time, I have performed more than 50% of the visit. Patient Condition at Discharge: Fair Plan - Discharge Summary Discharge Rx Participant: Yes New Discharge Prescriptions: New Lactulose [Cephulac] 20 gm PO BID #360 ml Pantoprazole Sodium [Protonix] 40 mg PO DAILY #30 tab Nicotine 14Mg/24Hr Patch [Habitrol] 1 patch TRANSDERM DAILY patch polyethylene glycoL 3350 [Miralax] 17 gm PO DAILY #527 gm hydrALAZINE HCL 25 mg PO TID #90 tab Continue Insulin NPH/Reg Insulin 70/30 [humuLIN 70/30 VIAL] 12 unit SQ BID 30 Days #4 each Patient Own Pump 0 bag Discharge Medication List Insulin NPH/Reg Insulin 70/30 [humuLIN 70/30 VIAL] 12 unit SQ BID 30 Days #4 each 06/19/22 [Rx] Patient Own Pump 0 bag 10/18/23 [History] Lactulose [Cephulac] 20 gm PO BID #360 ml 10/25/23 [Rx] Nicotine 14Mg/24Hr Patch [Habitrol] 1 patch TRANSDERM DAILY patch 10/25/23 [Rx] Pantoprazole Sodium [Protonix] 40 mg PO DAILY #30 tab 10/25/23 [Rx] hydrALAZINE HCL 25 mg PO TID #90 tab 10/25/23 [Rx] polyethylene glycoL 3350 [Miralax] 17 gm PO DAILY #527 gm 10/25/23 [Rx] Follow up Appointment(s)/Referral(s): Elijah Soriano MD [Medical Doctor] - 1 Week (The office is closed please call and make follow up appintment.) Priyanka Cedeno MD [STAFF PHYSICIAN] - 1 Week (Please call and make follow up appointment.) [facility] [NON-STAFF] - As Needed Activity/Diet/Wound Care/Special Instructions: Activity limited until follow-up Follow-up with your pain specialist Establish with a primary care provider Follow-up with general surgery outpatient in 1 week Continue scheduled bowel regimen daily Discharge/Stand Alone Forms: Who Do I Call?, Community Resources, Help In The Home, Area PCPs Discharge Disposition: HOME WITH HOME HEALTH SERVICES
== END 2023-10-25 19:22 | disposition home health service (06) | DRG 392 ==
LOC: EC 21:21 → 4SSUR 10-18 02:32 → 1SOBS 10-19 11:24 → 5NMEDONC 10-20 15:40
PROVIDERS: ADMIT Hospitalist; ATTEND Hospitalist
PROC: 0DB78ZX Excision of Stomach, Pylorus, Via Natural or Artificial Opening Endoscopic, Diagnostic (ICD-10-PCS; principal; 2023-10-21 07:30)
PROC: 0DB68ZX Excision of Stomach, Via Natural or Artificial Opening Endoscopic, Diagnostic (ICD-10-PCS; principal; 2023-10-21 07:30)
PROC: 0DB98ZX Excision of Duodenum, Via Natural or Artificial Opening Endoscopic, Diagnostic (ICD-10-PCS; principal; 2023-10-21 07:30)
DX: K29.70 Gastritis, unspecified, without bleeding (principal); E87.1 Hypo-osmolality and hyponatremia; E11.65 Type 2 diabetes mellitus with hyperglycemia; D72.829 Elevated white blood cell count, unspecified; I10 Essential (primary) hypertension; Z79.4 Long term (current) use of insulin; K29.80 Duodenitis without bleeding; K63.9 Disease of intestine, unspecified; K80.20 Calculus of gallbladder without cholecystitis without obstruction; E86.1 Hypovolemia; G89.29 Other chronic pain; M54.9 Dorsalgia, unspecified; R19.7 Diarrhea, unspecified; F17.200 Nicotine dependence, unspecified, uncomplicated; Z91.199 Patient's noncompliance with other medical treatment and regimen due to unspecified reason; Z53.20 Procedure and treatment not carried out because of patient's decision for unspecified reasons; Z96.41 Presence of insulin pump (external) (internal); Z88.5 Allergy status to narcotic agent
CPT/HCPCS: 36415; 43239; 70470; 71045; 74019; 74177; 78226; 80048; 80053; 81003; 83036; 83630; 83735; 84132; 84145; 85025; 88305; 93005; 96361; 96372; 96374; 96375; 96376; 99285